=== PATIENT | male | born 1940 | race Caucasian/White ===

== ENCOUNTER 2019-04-08 10:43 | Inpatient (IN) | payer OTHER ==
[2019-04-08] MEDS ORDERED: ONDANSETRON 4 MG/2 ML VIAL ONE (11:51)
[2019-04-08] MEDS ORDERED: NA CHLORIDE 0.9% 500 ML ONE (11:51)
[2019-04-08] MEDS ORDERED: MORPHINE 4 MG/ML SYR ONE ×2 (11:51→17:02)
[2019-04-08 11:59] LABS: Absolute Lymphocytes (CBC) 0.6 K/uL (0.7-4.9); Basophils % 0.2 % (0-1.3); Hematocrit 40.7 % (39.6-49.0); Lymphocytes % 3.6 % (15.3-44.8); MPV 8.5 fL (7.6-11.3); RBC Red Blood Cell Count 4.29 M/uL (4.33-5.43)
[2019-04-08 12:18] LABS: Protime INR 1.43
[2019-04-08 12:21] LABS: Albumin 3.6 g/dL (3.4-5.0); Bilirubin Direct 0.3 mg/dL (0-0.2); Bilirubin Total 0.7 mg/dL (0.2-1.0); Potassium 3.9 mmol/L (3.5-5.1); Troponin (Emerg Dept Use Only) 0.02 ng/mL (0.0-0.045)
--- NOTE | 2019-04-08 12:39 | RAD REPORT ---
EXAM DESCRIPTION: RAD - Chest Single View - 04/08/2019 12:32 pm CLINICAL HISTORY: ABDOMINAL DISTENTION Chest pain. COMPARISON: Chest Pa And Lat (2 Views) dated 02/21/2016; Chest Pa And Lat (2 Views) dated 11/11/2015; CHEST PA AND LAT 2 VIEW dated 07/25/2014; CHEST SINGLE VIEW dated 07/24/2014; Abdomen Angio dated 10/31 FINDINGS: Portable technique limits examination quality. The lungs are grossly clear. The heart is moderately enlarged. No displaced fractures. IMPRESSION: No acute intrathoracic process suspected.
[2019-04-08] MEDS ORDERED: METRONIDAZOLE 500mg IVPB 500 MG/100 ML BAG IV ONE (13:09)
[2019-04-08] MEDS ORDERED: CIPROFLOXACIN 400mg IV 400 MG/200 ML BAG IV ONE (13:09)
--- NOTE | 2019-04-08 13:48 | RAD REPORT ---
EXAM DESCRIPTION: CTAbdomen Pelvis W Contrast - 04/08/2019 1:39 pm CLINICAL HISTORY: Abdominal pain. ABD PAIN COMPARISON: Abdomen Pelvis W Contrast dated 11/14/2015; CT ABD PELVIS W CONTRAST dated 07/25/2011 TECHNIQUE: Biphasic CT imaging of the abdomen and pelvis was performed with 100 ml non-ionic IV cont rast. All CT scans are performed using dose optimization technique as appropriate and may include automated exposure control or mA/KV adjustment according to patient size. FINDINGS: Linear opacities are present in the lung bases compatible with subsegmental atelectasis. Nodular appearance to the liver contour is seen compatible with mild cirrhosis. The spleen, pancreas, adrenal glands kidneys are within normal limits. No hydronephrosis. No bowel obstruction, free air, free fluid or abscess. Sigmoid diverticulosis coli is present without diverticulitis. The appendix is normal. Large fat containing umbilical hernia. Several smaller fat c ontaining supraumbilical ventral hernia is also seen. No bowel involvement. No evidence of significan t lymphadenopathy. Aortic atherosclerosis. No fracture is apparent. Spinal central canal stenosis is identified at L2-3. IMPRESSION: Mild liver cirrhosis. Large fat containing umbilical hernia.
--- NOTE | 2019-04-08 14:05 | ER ---
Nurse's Notes [facility] Name: Caesar Gagnon Age: 79 yrs Sex: Male : 1940 Arrival Date: 04/08/2019 Time: 10:45 Bed 24 Private MD: José Luis eDnnison Diagnosis: Low back pain;Obesity, unspecified;Abdominal tenderness;Unspecified cirrhosis of liver;Elevated white blood cell count Presentation: 04/08 10:54 Presenting complaint: Patient states: Pain in abd/back/hips. Worse with walking. la1 Transition of care: patient was not received from another setting of care. Onset of symptoms was April 08, 2019. Risk Assessment: Do you want to hurt yourself or someone else? Patient reports no desire to harm self or others. Initial Sepsis Screen: Does the patient meet any 2 criteria? No. Patient's initial sepsis screen is negative. Does the patient have a suspected source of infection? No. Patient's initial sepsis screen is negative. Care prior to arrival: None. 10:54 Method Of Arrival: Wheelchair la1 10:54 Acuity: CHRISTIANO 3 la1 Historical: - Allergies: 10:53 No Known Allergies; la1 - PMHx: 10:53 Hypertension; la1 10:53 Atrial Fib; la1 - Immunization history:: Adult Immunizations up to date. - Social history:: Smoking status: Patient/guardian denies using tobacco. - Ebola Screening: : No symptoms or risks identified at this time. - Family history:: not pertinent. Screenin:05 Abuse screen: Denies threats or abuse. Denies injuries from another. Nutritional aj1 screening: No deficits noted. Tuberculosis screening: No symptoms or risk factors identified. Assessment: 11:05 General: Appears in no apparent distress. comfortable, Behavior is calm, cooperative, aj1 appropriate for age. Pain: Complains of pain in back, right lower quadrant, left lower quadrant, left hip and right hip Pain does not radiate. Pain currently is 6 out of 10 on a pain scale. Neuro: Level of Consciousness is awake, alert, obeys commands, Oriented to person, place, time, situation. Cardiovascular: Denies chest pain, Patient's skin is warm and dry. Respiratory: Airway is patent Respiratory effort is even, unlabored, Respiratory pattern is regular, symmetrical. GI: Abdomen is round non-distended, Bowel sounds present X 4 quads. Abd is soft X 4 quads Abdomen is tender to palpation in right lower quadrant and left lower quadrant Reports nausea, Patient currently denies diarrhea, vomiting. : No signs and/or symptoms were reported regarding the genitourinary system. EENT: No signs and/or symptoms were reported regarding the EENT system. Derm: No signs and/or symptoms reported regarding the dermatologic system. Skin is pink, warm \T\ dry. normal. Musculoskeletal: No signs and/or symptoms reported regarding the musculoskeletal system. Circulation, motion, and sensation intact. 12:05 Reassessment: Patient appears in no apparent distress at this time. No changes from aj1 previously documented assessment. Patient and/or family updated on plan of care and expected duration. Pain level reassessed. Patient is alert, oriented x 3, equal unlabored respirations, skin warm/dry/pink. 14:03 Reassessment: Patient appears in no apparent distress at this time. No changes from aj1 previously documented assessment. Patient and/or family updated on plan of care and expected duration. Pain level reassessed. Patient is alert, oriented x 3, equal unlabored respirations, skin warm/dry/pink. 15:10 Reassessment: Patient and/or family updated on plan of care and expected duration. Pain aj1 level reassessed. General: Appears in no apparent distress. comfortable, Behavior is calm, cooperative, appropriate for age. Neuro: Level of Consciousness is awake, alert, obeys commands, Oriented to person, place, time, situation. Cardiovascular: Patient's skin is warm and dry. Respiratory: Airway is patent Respiratory effort is even, unlabored, Respiratory pattern is regular, symmetrical. GI: Abdomen is round non-distended. Derm: Skin is pink, warm \T\ dry. normal. Musculoskeletal: Circulation, motion, and sensation intact. 16:10 Reassessment: Patient appears in no apparent distress at this time. No changes from aj1 previously documented assessment. Patient and/or family updated on plan of care and expected duration. Pain level reassessed. Patient is alert, oriented x 3, equal unlabored respirations, skin warm/dry/pink. 17:13 Reassessment: Patient appears in no apparent distress at this time. No changes from aj1 previously documented assessment. Patient and/or family updated on plan of care and expected duration. Pain level reassessed. Patient is alert, oriented x 3, equal unlabored respirations, skin warm/dry/pink. 18:15 Reassessment: attempt to call report. iw 18:38 Reassessment: Aidee from 4th floor called to get report, states she will accept the iw patient now. Vital Signs: 10:53 Pulse 76; Resp 16; Temp 97.2; Pulse Ox 98% on R/A; Weight 127.01 kg; Height 6 ft. 2 in. la1 (187.96 cm); 10:54 BP 136 / 69; la1 12:05 BP 140 / 77; Pulse 73; Resp 18; Pulse Ox 95% on R/A; aj1 15:10 BP 126 / 72; Pulse 84; Resp 18; Pulse Ox 94% on R/A; aj1 17:13 BP 113 / 89; Pulse 83; Resp 20; Pulse Ox 93% on R/A; aj1 10:53 Body Mass Index 35.95 (127.01 kg, 187.96 cm) la1 ED Course: 10:45 Patient arrived in ED. as 10:46 José Luis Dennison MD is Private Physician. as 10:54 Triage completed. la1 10:54 Arm band placed on right wrist. la1 10:57 Patrick Hardy MD is Attending Physician. alyx 10:58 Barbara Mejias, RN is Primary Nurse. aj1 11:05 Patient has correct armband on for positive identification. Bed in low position. Call aj1 light in reach. Side rails up X 1. substitute crossing guard on. Pulse ox on. NIBP on. 11:05 No provider procedures requiring assistance completed. aj1 11:53 Initial lab(s) drawn, by nj, sent to lab. Inserted saline lock: 22 gauge in right jb1 antecubital area, using aseptic technique. Blood collected. 12:13 EKG done, by chemical laboratory technician. reviewed by Patrick Hardy MD. sm3 12:33 XRAY Chest (1 view) In Process Unspecified. EDMS 13:41 CT Abd/Pelvis - PO and IV Contrast In Process Unspecified. EDMS 14:04 José Luis Dennison MD is Hospitalizing Provider. alyx 18:42 Patient admitted, IV remains in place. iw Administered Medications: 11:56 Drug: morphine 4 mg Route: IVP; Site: right antecubital; aj 12:30 Follow up: Response: No adverse reaction; Pain is decreased; RASS: Alert and Calm (0) aj 11:56 Drug: Zofran 4 mg Route: IVP; Site: right antecubital; aj1 12:30 Follow up: Response: No adverse reaction aj 11:56 Drug: NS 0.9% 500 ml Route: IV; Rate: bolus; Site: right antecubital; aj1 14:00 Follow up: IV Status: Completed infusion; IV Intake: 500ml aj 14:03 Drug: Flagyl 500 mg Volume: 100 ml; Route: IVPB; Rate: 200 ml/hr; Infused Over: 30 aj1 mins; Site: left antecubital; 15:36 Follow up: IV Status: Completed infusion; IV Intake: 100ml aj 15:36 Drug: Cipro 400 mg Volume: 200 ml; Route: IVPB; Infused Over: 60 mins; Site: left aj antecubital; 16:55 Follow up: IV Status: Completed infusion; IV Intake: 200ml 16:55 Drug: NS 0.9% 1000 ml Route: IV; Rate: 125 ml/hr; Site: left antecubital; aj Intake: 14:00 IV: 500ml; Total: 500ml. 15:36 IV: 100ml; Total: 600ml. 16:55 IV: 200ml; Total: 800ml. [facility] Outcome: 14:05 Decision to Hospitalize by Provider. alyx 18:42 Admitted to Med/surg accompanied by tech, family with patient, via wheelchair, room iw 416, with chart, Report called to TIMOTHY Hoskins 18:42 Condition: good 18:42 Discharge instructions given to patient, family, Instructed on the need for admit. 18:42 Patient left the ED. iw Signatures: Dispatcher [employer] EDMS Ari Palmer1 Barbara Mejias RN RN rochelle1 Patrick Hardy MD MD cha Martinez, Amelia as Williams, Irene, RN RN Richard Vickers RN RN pa1 Angelica Solomon [facility]
--- NOTE | 2019-04-08 14:06 | EDPHYS ---
Physician Documentation [facility] Name: Caesar Gagnon Age: 79 yrs Sex: Male : 1940 Arrival Date: 04/08/2019 Time: 10:45 Bed 24 Private MD: José Luis Dennison ED Physician Patrick Hardy HPI: 04/08 11:21 This 79 yrs old Male presents to ER via Wheelchair with complaints of alyx Abdominal Pain, Back Pain, Hip Pain. 11:21 The patient presents with pain that is acute. The symptoms are located in the low back. alyx Onset: The symptoms/episode began/occurred 3 day(s) ago. 11:22 The patient presents with abdominal pain in the upper abdomen, in the lower abdomen, alyx abdominal distention in the upper abdomen, in the lower abdomen. Onset: The symptoms/episode began/occurred 3 day(s) ago. The pain does not radiate. Associated signs and symptoms: The patient has no apparent associated signs or symptoms. Modifying factors: The patient symptoms are alleviated by nothing, the patient symptoms are aggravated by any movement. Severity of symptoms: At their worst the symptoms were moderate, in the emergency department the symptoms are unchanged. Historical: - Allergies: 10:53 No Known Allergies; la1 - PMHx: 10:53 Hypertension; la1 10:53 Atrial Fib; la1 - Immunization history:: Adult Immunizations up to date. - Social history:: Smoking status: Patient/guardian denies using tobacco. - Ebola Screening: : No symptoms or risks identified at this time. - Family history:: not pertinent. ROS: 11:22 Constitutional: Negative for fever, chills, and weight loss, Eyes: Negative for injury, alyx pain, redness, and discharge, ENT: Negative for injury, pain, and discharge, Neck: Negative for injury, pain, and swelling, Cardiovascular: Negative for chest pain, palpitations, and edema, Respiratory: Negative for shortness of breath, cough, wheezing, and pleuritic chest pain, : Negative for injury, bleeding, discharge, and swelling, MS/Extremity: Negative for injury and deformity, Skin: Negative for injury, rash, and discoloration, Neuro: Negative for headache, weakness, numbness, tingling, and seizure, Psych: Negative for depression, anxiety, suicide ideation, homicidal ideation, and hallucinations, Allergy/Immunology: Negative for hives, rash, and allergies, Endocrine: Negative for neck swelling, polydipsia, polyuria, polyphagia, and marked weight changes, Hematologic/Lymphatic: Negative for swollen nodes, abnormal bleeding, and unusual bruising. 11:22 Abdomen/GI: Positive for abdominal distension. 11:22 Back: Positive for decreased range of motion, pain at rest, pain with movement. 11:22 MS/extremity: Positive for swelling, of the right leg and left leg. Exam: 11:22 Constitutional: This is a well developed, well nourished patient who is awake, alert, alyx and in no acute distress. Head/Face: Normocephalic, atraumatic. Eyes: Pupils equal round and reactive to light, extra-ocular motions intact. Lids and lashes normal. Conjunctiva and sclera are non-icteric and not injected. Cornea within normal limits. Periorbital areas with no swelling, redness, or edema. ENT: Nares patent. No nasal discharge, no septal abnormalities noted. Tympanic membranes are normal and external auditory canals are clear. Oropharynx with no redness, swelling, or masses, exudates, or evidence of obstruction, uvula midline. Mucous membranes moist. Neck: Trachea midline, no thyromegaly or masses palpated, and no cervical lymphadenopathy. Supple, full range of motion without nuchal rigidity, or vertebral point tenderness. No Meningismus. Chest/axilla: Normal chest wall appearance and motion. Nontender with no deformity. No lesions are appreciated. Cardiovascular: Regular rate and rhythm with a normal S1 and S2. No gallops, murmurs, or rubs. Normal PMI, no JVD. No pulse deficits. Respiratory: Lungs have equal breath sounds bilaterally, clear to auscultation and percussion. No rales, rhonchi or wheezes noted. No increased work of breathing, no retractions or nasal flaring. Back: No spinal tenderness. No costovertebral tenderness. Full range of motion. Male : Normal genitalia with no discharge or lesions. Skin: Warm, dry with normal turgor. Normal color with no rashes, no lesions, and no evidence of cellulitis. Neuro: Awake and alert, GCS 15, oriented to person, place, time, and situation. Cranial nerves II-XII grossly intact. Motor strength 5/5 in all extremities. Sensory grossly intact. Cerebellar exam normal. Normal gait. Psych: Awake, alert, with orientation to person, place and time. Behavior, mood, and affect are within normal limits. 11:22 Abdomen/GI: Inspection: distension, Bowel sounds: active, Palpation: mild abdominal tenderness, Liver: no appreciated palpable abnormalities, Hernia: not appreciated. Vital Signs: 10:53 Pulse 76; Resp 16; Temp 97.2; Pulse Ox 98% on R/A; Weight 127.01 kg; Height 6 ft. 2 in. la1 (187.96 cm); 10:54 BP 136 / 69; la1 12:05 BP 140 / 77; Pulse 73; Resp 18; Pulse Ox 95% on R/A; aj1 15:10 BP 126 / 72; Pulse 84; Resp 18; Pulse Ox 94% on R/A; aj1 17:13 BP 113 / 89; Pulse 83; Resp 20; Pulse Ox 93% on R/A; aj1 10:53 Body Mass Index 35.95 (127.01 kg, 187.96 cm) la1 MDM: 10:57 Patient medically screened. [facility] 11:24 Data reviewed: vital signs, nurses notes, EMS record, lab test result(s), EKG, [facility] radiologic studies, CT scan, plain films. 04/08 11:21 Order name: Basic Metabolic Panel; Complete Time: 12:33 [facility] 04/08 11:21 Order name: CBC with Diff [facility] 04/08 11:21 Order name: LFT's; Complete Time: 12:33 [facility] 04/08 11:21 Order name: Magnesium; Complete Time: 12:33 [facility] 04/08 11:21 Order name: NT PRO-BNP; Complete Time: 12:33 [facility] 04/08 11:21 Order name: PT-INR; Complete Time: 12:33 [facility] 04/08 11:21 Order name: Troponin (emerg Dept Use Only); Complete Time: 12:33 [facility] 04/08 11:21 Order name: XRAY Chest (1 view); Complete Time: 12:54 [facility] 04/08 11:21 Order name: Lipase; Complete Time: 12:33 [facility] 04/08 11:21 Order name: Urine Culture [facility] 04/08 12:09 Order name: CBC Smear Scan [facility] 04/08 14:18 Order name: Manual Differential [facility] 04/08 14:21 Order name: Urine Dipstick--Ancillary (enter results) 04/08 16:03 Order name: Urine Dipstick-Ancillary [facility] 04/08 11:21 Order name: EKG; Complete Time: 11:22 [facility] 04/08 11:21 Order name: Cardiac monitoring; Complete Time: 11:53 [facility] 04/08 11:21 Order name: IV Saline Lock; Complete Time: 11:53 [facility] 04/08 11:21 Order name: Labs collected and sent; Complete Time: 11:53 [facility] 04/08 11:21 Order name: O2 Per Protocol; Complete Time: 11:53 [facility] 04/08 11:21 Order name: O2 Sat Monitoring; Complete Time: 11:53 [facility] 04/08 11:21 Order name: CT Abd/Pelvis - PO and IV Contrast; Complete Time: 13:57 [facility] 04/08 15:44 Order name: Diet Regular; Complete Time: 15:44 [facility] Administered Medications: 11:56 Drug: morphine 4 mg Route: IVP; Site: right antecubital; [facility] 12:30 Follow up: Response: No adverse reaction; Pain is decreased; RASS: Alert and Calm (0) [facility] 11:56 Drug: Zofran 4 mg Route: IVP; Site: right antecubital; aj1 12:30 Follow up: Response: No adverse reaction [facility] 11:56 Drug: NS 0.9% 500 ml Route: IV; Rate: bolus; Site: right antecubital; aj1 14:00 Follow up: IV Status: Completed infusion; IV Intake: 500ml [facility] 14:03 Drug: Flagyl 500 mg Volume: 100 ml; Route: IVPB; Rate: 200 ml/hr; Infused Over: 30 aj1 mins; Site: left antecubital; 15:36 Follow up: IV Status: Completed infusion; IV Intake: 100ml aj 15:36 Drug: Cipro 400 mg Volume: 200 ml; Route: IVPB; Infused Over: 60 mins; Site: left aj1 antecubital; 16:55 Follow up: IV Status: Completed infusion; IV Intake: 200ml [facility] 16:55 Drug: NS 0.9% 1000 ml Route: IV; Rate: 125 ml/hr; Site: left antecubital; aj1 Disposition: 04/08/19 14:05 Hospitalization ordered by José Luis Dennison for Inpatient Admission. Preliminary diagnosis are Low back pain, Obesity, unspecified, Abdominal tenderness, Unspecified cirrhosis of liver, Elevated white blood cell count. - Bed requested for Telemetry/MedSurg (Inpatient). - Status is Inpatient Admission. iw - Condition is Fair. - Problem is new. - Symptoms have improved. UTI on Admission? No Signatures: Dispatcher [employer] EDMS Barbara Mejias, RN RN aj1 Latosha Hwang RN RN Patrick Pulido MD MD cha Williams, Irene, RN RN iw Richard Vickers RN RN la1 Corrections: (The following items were deleted from the chart) 18:10 14:05 Hospitalization Ordered by José Luis Dennison MD for Inpatient Admission. Preliminary dw diagnosis is Low back pain; Obesity, unspecified; Abdominal tenderness; Unspecified cirrhosis of liver; Elevated white blood cell count. Bed requested for Telemetry/MedSurg (Inpatient). Status is Inpatient Admission. Condition is Fair. Problem is new. Symptoms have improved. UTI on Admission? No. alyx 18:42 18:10 04/08/2019 14:05 Hospitalization Ordered by José Luis Dennison MD for Inpatient iw Admission. Preliminary diagnosis is Low back pain; Obesity, unspecified; Abdominal tenderness; Unspecified cirrhosis of liver; Elevated white blood cell count. Bed requested for Telemetry/MedSurg (Inpatient). Status is Inpatient Admission. Condition is Fair. Problem is new. Symptoms have improved. UTI on Admission? No. dw
[2019-04-08 14:17] LABS: Blood Morphology Comment NOT SEEN (NOT SEEN); Platelet Estimate ADEQ
[2019-04-08 16:02] LABS: Urine Blood NEGATIVE (NEG); Urine Glucose NEGATIVE (NEG); Urine Protein NEGATIVE (NEG); Urine Specific Gravity <1.005 (1.005-1.030); Urine pH 5.5 (5.0-7.0)
--- NOTE | 2019-04-08 16:31 | EKG ---
Test Date: 2019-04-08 Test Time: 11:59:55 [place]: LAN MEASUREMENT RESULTS: Intervals: Rate: 64 OR: QRSD: 90 QT: 408 QTc: 420 [place]: P: OR: QRS: 35 T: 65 INTERPRETIVE STATEMENTS: Atrial fibrillation with premature ventricular or aberrantly conducted complexes Abnormal ECG Compared to ECG 11/11/2015 15:56:32 Ventricular premature complex(es) now present ST (T wave) deviation no longer present Electronically Signed On 04-08-19 16:30:09 EVENT PLANNING INTERN by Adolfo Vasquez
[2019-04-08] MEDS ORDERED: NA CHLORIDE 0.9% 1,000 ML ONE (16:50)
[2019-04-08] MEDS ORDERED: NA CHLORIDE 0.9% 1,000 ML IV SCH ×2 (19:37→21:00)
[2019-04-08] MEDS ORDERED: CIPROFLOXACIN 400mg IV 400 MG/200 ML BAG IV SCH (21:00)
[2019-04-08] MEDS ORDERED: FAMOTIDINE 20 MG/2 ML VIAL IV SCH (21:00)
[2019-04-08] MEDS: MORPHINE 4 MG/ML SYR IV PRN (21:29)
[2019-04-08] MEDS: ONDANSETRON 4 MG/2 ML VIAL IV PRN (21:29)
[2019-04-08] MEDS: METRONIDAZOLE 500mg IVPB 500 MG/100 ML BAG IV SCH (21:30)
[2019-04-09] MEDS: METRONIDAZOLE 500mg IVPB 500 MG/100 ML BAG IV SCH ×4 (00:28→17:32)
[2019-04-09] MEDS: CIPROFLOXACIN 400mg IV 400 MG/200 ML BAG IV SCH ×2 (02:58→14:40)
[2019-04-09 03:57] VITALS: BMI 35.9
[2019-04-09 04:33] LABS: Basophils % 0.9 % (0-1.3); Hematocrit 40.2 % (39.6-49.0); Lymphocytes % 6.7 % (15.3-44.8); MPV 8.6 fL (7.6-11.3); RBC Red Blood Cell Count 4.16 M/uL (4.33-5.43)
[2019-04-09 05:23] LABS: Albumin 3.3 g/dL (3.4-5.0); Bilirubin Direct 0.3 mg/dL (0-0.2); Bilirubin Total 0.6 mg/dL (0.2-1.0); Potassium 4.5 mmol/L (3.5-5.1); Protein, Total 6.5 g/dL (6.4-8.2)
[2019-04-09] MEDS: MORPHINE 4 MG/ML SYR IV PRN ×5 (05:27→21:34)
[2019-04-09] MEDS: ONDANSETRON 4 MG/2 ML VIAL IV PRN (05:27)
[2019-04-09] MEDS: NITROGLYCERIN 0.4 MG/TAB SL PRN ×2 (06:30→06:35)
[2019-04-09 06:48] LABS: Troponin I 0.03 ng/mL (0.0-0.045)
[2019-04-09] MEDS ORDERED: INFLUENZA VACCINE (for 3y+) 0.5 ML DOSE IMVAC ONE (09:00)
--- NOTE | 2019-04-09 13:26 | ECHO ---
HEIGHT: 6 ft 2 in WEIGHT: 280 lb 0 oz DATE OF STUDY: 04/09/[address]: Adolfo Vasquez MD 2-DIMENSIONAL: YES M.MODE: YES DOPPLER: YES COLOR FLOW: YES TDS: YES PORTABLE: NO DEFINITY: NO BUBBLE STUDY: NO DIAGNOSIS: ATRIAL FIBRILLATION CARDIAC HISTORY: CATHERIZATION: YES SURGERY: NO PROSTHETIC VALVE: NO PACEMAKER: NO MEASUREMENTS (cm) DIASTOLIC (NORMALS) SYSTOLIC (NORMALS) IVSd 1.4 (0.6-1.2) LA Diam (1.9-4.0) LVEF 53% LVIDd 4.4 (3.5-5.7) LVIDs 3.2 (2.0-3.5) %FS 27% LVPWd 1.4 (0.6-1.2) Ao Diam 3.0 (2.0-3.7) 2 DIMENSIONAL ASSESSMENT: RIGHT ATRIUM: NORMAL LEFT ATRIUM: NORMAL RIGHT VENTRICLE: NORMAL LEFT VENTRICLE: LEFT VENTRICULAR HYPERTROPHY TRICUSPID VALVE: NORMAL MITRAL VALVE: NORMAL PULMONIC VALVE: NORMAL AORTIC VALVE: NORMAL PERICARDIAL EFFUSION: NONE AORTIC ROOT: NORMAL LEFT VENTRICULAR WALL MOTION: NORMAL. DOPPLER/COLOR FLOW: NORMAL. COMMENTS: MILD LEFT VENTRICULAR HYPERTROPHY. NORMAL EJECTION FRACTION. NO WALL MOTION ABNORMALITY. NO EFFUSION. TECHNOLOGIST: IAM RODRIGUEZ
[2019-04-09] MEDS ORDERED: MUPIROCIN TP PRN (15:43)
[2019-04-09] MEDS ORDERED: ALBUTEROL SULFATE 2.5 MG IH PRN (15:43)
[2019-04-09] MEDS ORDERED: PREDNISONE 10 MG PO PRN (15:43)
[2019-04-09] MEDS ORDERED: HOME MED 1 EA UNK (Zolpidem Tartrate [Ambien*] 10 MG) PO PRN (15:43)
--- NOTE | 2019-04-09 16:31 | CON ---
Date of Consultation: 04/09/2019 I saw the patient on 04/09/2019. Reason For Consultation: Atypical chest pain. History Of Present Illness: Mr. Gagnon is a 79-year-old white male. He has had a history of coronar y artery disease, status post 1 stent in the past. He has a history of chronic atrial fibrillation, hypertension, gout, COPD, gastroesophageal reflux disease, and dyslipidemia. He came in with mid-epi gastric pain that is diffuse type. CT scan of the abdomen shows some mild cirrhosis. It was thought that he had a short run of ventricular tachycardia, but it is truly an atrial fibrillation with aber rancy. The patient did not have any palpitation, nausea, vomiting, diaphoresis, PND, orthopnea, peda l edema, or syncope. Allergies: NONE. Review of Systems: Negative. Social History: Negative. Family History: Negative. Medications: Includes Eliquis, Lasix, lisinopril, metoprolol, allopurinol, potassium, inhalers, aspi rin, Lipitor, Pepcid, hydrochlorothiazide, and prednisone. Physical Examination: General: When I saw him, he was asymptomatic, pleasant. No acute distress. Vital Signs: Atrial fibrillation, rate of 80. HEENT: Negative. Neck: Supple without any bruit, lymphadenopathy, JVD, or thyromegaly. Chest: Clear to auscultation and percussion. Cardiac: Revealed atrial fibrillation. Abdomen: Benign. Extremities: Revealed no clubbing, cyanosis. He had trace edema. Neurologic: He was intact. Skin: Dry. Impression And Plan: 1.Atypical chest pain secondary to the combination of cirrhosis, maybe gastritis. 2.History of coronary artery disease, status post stent. Had a recent negative stress test. Echoca rdiogram is pending. 3.Cirrhosis. 4.Atrial fibrillation, on Eliquis and metoprolol with an episode of atrial fibrillation with aberran cy, not ventricular tachycardia. Magnesium is normal. Potassium is slightly low that needs to be supplemented. His other problems in clude hypertension, gout, chronic obstructive pulmonary disease, gastroesophageal reflux disease, and dyslipidemia, although seem to be stable at this point. I would continue his present regimen. Echo is pending. No further cardiac workup at this point. One thing I would like to note that he is on a combination of Lasix and hydrochlorothiazide and I think if the echocardiogram is normal, I will st ick with hydrochlorothiazide rather than the Lasix, but not the combination of both. I will discuss the case further with Dr. Dennison. MAVERICK/RIA Voice ID: [id number] Report ID: [id number]
[2019-04-09] MEDS ORDERED: BISACODYL E.C. 5 MG TAB PO ONE (17:00)
[2019-04-09] MEDS ORDERED: HOME MED 1 EA UNK (Albuterol Inhaler [Ventolin Inhaler*] 2 PUFF) IH SCH (17:00)
[2019-04-09] MEDS ORDERED: METOPROLOL TARTRATE 12.5 MG PO SCH (18:00)
[2019-04-09] MEDS ORDERED: HOME MED 1 EA UNK (Atorvastatin Calcium [Lipitor] 40 MG) PO SCH (21:00)
[2019-04-09] MEDS ORDERED: LISINOPRIL 20 MG PO SCH (21:00)
[2019-04-09] MEDS ORDERED: APIXABAN PO SCH (21:00)
--- NOTE | 2019-04-09 21:22 | PN ---
Date of Progress Note: 04/09/2019 The patient stated he feels a lot better starting early this afternoon. Was treated nonspecifically with IV antibiotics. Of interest is that he did have some good response to the nitroglycerin last ni ght when he complained of chest tightness and wheezing. Whether this was mainly pulmonary and/or car diac or combination obviously is possible. In any event, I will keep him on IV antibiotics at least overnight, possibly be discharged tomorrow on oral medications. Suspect the primary insult came from his lungs as he states he did start smoking again. When he woke up, however, he felt just very achy all over and he eventually presented to the emergency room. HR/MODL Voice ID: [id number] Report ID: [id number]
--- NOTE | 2019-04-09 21:28 | HP ---
Date of Admission: 04/08/2019 Chief Complaint: General malaise. History Of Present Illness: The patient states that he woke up a couple of days prior to presenting to the emergency room and felt achy all over his joints and muscles and has felt very weak. He did n ot have any chills or fever or anything contributing to it. He was presented to the emergency room w ith elevated white count, decided to treat him with more extensive antibiotics to his underlying cond itions, which are multiple. Past Medical History: Patient has a long history of coronary artery disease, pulmonary disease, awilda pheral vascular disease. Social History: The patient has started smoking again, has a history of this as well as some alcohol intake. Family History: Noncontributory. Physical Examination: General: Patient is an elderly male, overweight. Vital Signs: Stable. Head and Neck: Normocephalic. Pupils equal, reactive to light and accommodation. Fundi negative. T rachea midline. Thyroid not palpable. ENT: Negative. Chest: Occasional rales at both bases. Adequate air entry and movement. Cardiovascular: PMI, midclavicular line. Heart sounds normal. Peripheral pulses are present and eq ual bilaterally. Abdomen: No organomegaly. Bowel sounds present. Extremities: Good tone and movement bilaterally. Reflexes physiologic. Rectal: Deferred. Impression: Leukocytosis, probably secondary to bronchial infection; coronary artery disease by hist ory; hypertension, controlled. Plan: Patient will be admitted, placed on IV antibiotics. Continue with his inhalation therapy and his home medications for his numerous cardiovascular problems. However, Cardiology has seen him. He is also seen by Pulmonology, last seen within the past month. According to the patient, no changes were made in his inhalation therapy. Depending on the results of telemetry and his cardiac workup, selina farr may need to stay another 48 hours or so to stabilize his status. In regard to his white count bein g elevated, the patient does take steroids. He takes it on a regular basis, so that is a possibility as well. He has not had his flu shot today, so it is possible this is a factor as well. We will co ntinue with the workup as above. HR/MODL Voice ID: [id number]
[2019-04-10] MEDS: METRONIDAZOLE 500mg IVPB 500 MG/100 ML BAG IV SCH ×3 (00:07→11:53)
[2019-04-10] MEDS: CIPROFLOXACIN 400mg IV 400 MG/200 ML BAG IV SCH (03:41)
[2019-04-10] MEDS: MORPHINE 4 MG/ML SYR IV PRN ×2 (03:44→17:43)
[2019-04-10 04:24] LABS: Potassium 3.8 mmol/L (3.5-5.1)
[2019-04-10] MEDS: LEVALBUTEROL 1.25 MG/3 ML NEB NEB SCH ×3 (08:42→20:00)
[2019-04-10] MEDS: IPRATROPIUM BROM 0.5MG/2.5ML NEB PRN ×2 (08:42→14:30)
[2019-04-10] MEDS ORDERED: LEVALBUTEROL 1.25 MG/3 ML NEB ONE (08:51)
[2019-04-10] MEDS ORDERED: HOME MED 1 EA UNK (L.Acidoph,Paracasei, B.Lactis [Probiotic] 1 EACH) PO SCH (09:00)
[2019-04-10] MEDS ORDERED: HOME MED 1 EA UNK (Tiotropium Bromide [Spiriva] 1 SPRAY) IH SCH (09:00)
[2019-04-10] MEDS ORDERED: HOME MED 1 EA UNK (Furosemide [Lasix] 80 MG) PO SCH (09:00)
[2019-04-10] MEDS ORDERED: POTASSIUM CHLORIDE PO SCH (09:00)
[2019-04-10] MEDS ORDERED: HOME MED 1 EA UNK (Allopurinol [Allopurinol] 300 MG) PO SCH (09:00)
[2019-04-10] MEDS ORDERED: ASPIRIN PO SCH (09:00)
[2019-04-10] MEDS ORDERED: HOME MED 1 EA UNK (Fluticasone/Vilanterol [Breo Ellipta 200-25 Mcg Inh] 1 PUFF) IH SCH (09:00)
[2019-04-10] MEDS ORDERED: HOME MED 1 EA UNK (Hydrochlorothiazide [Hydrochlorothiazide] 1 TAB) PO SCH (09:00)
[2019-04-10] MEDS ORDERED: FAMOTIDINE PO SCH (09:00)
--- NOTE | 2019-04-10 09:01 | RAD REPORT ---
EXAM DESCRIPTION: Che Single View04/10/2019 8:53 am CLINICAL HISTORY: Shortness of breath COMPARISON: April 08 FINDINGS: A few areas of subsegmental atelectasis are present within the lung bases The upper lobes are clear Heart is mildly to moderately enlarged
[2019-04-10 09:25] LABS: Arterial Blood Carboxyhemoglob 1.5 % (0-1.5); Blood Gas Oxyhemoglobin 88.4 % (94-97); Blood O2 Saturation 90.1 % (92-98.5)
[2019-04-10] MEDS ORDERED: BISACODYL E.C. 5 MG TAB PO ONE (11:35)
[2019-04-10 11:45] LABS: Absolute Lymphocytes (CBC) 0.4 K/uL (0.7-4.9); Basophils % 0.1 % (0-1.3); Lymphocytes % 2.5 % (15.3-44.8); MPV 8.6 fL (7.6-11.3); RBC Red Blood Cell Count 3.94 M/uL (4.33-5.43)
[2019-04-10] MEDS ORDERED: MAGNESIUM CITRATE 300 ML BOT PO SCH (12:00)
--- NOTE | 2019-04-10 13:49 | PN ---
Date of Progress Note: 04/10/2019 Subjective: Hospitalist service covering for Dr. Dennison over the holiday weekend. Code status full. Patient had acute dyspnea with minimal exertion, getting from the bed to the commode, became very lethargic and was feeling faint and was complaining of shortness of breath. Patient did improve with rest. Medications: List reviewed. Physical Examination: Vital Signs: Temperature 97.5, heart rate 73, blood pressure 120/54, respirations 18, O2 93% on 2 L via nasal cannula. General: Awake, alert, oriented x3, elderly male, obese, ill-appearing. CV: S1, S2, irregularly irregular. Peripheral pulses weak. Respiratory: Diminished breath sounds at the bases. No wheezing or stridor. Gastrointestinal: Abdomen is soft, nontender, nondistended. Positive bowel sounds. Extremities: The patient has some cyanosis of the toes. Peripheral edema is present. Neurologic: Nonfocal. Laboratory Data: Sodium 138, potassium 3.8, chloride 102, CO2 32, BUN 19, creatinine 1.07, glucose 109, calcium 8.7. Chest x-ray personally reviewed, shows few areas of subsegmental atelectasis present within the lung bases. Upper lobes are clear. Heart is mild to moderately enlarged. Assessment And Plan: A 79-year-old male with. 1. Atypical chest pain, resolved. 2. Atrial fibrillation, chronic, permanent, on Eliquis and metoprolol. Patient did have some episodes of atrial fibrillation with aberrancy and not ventricular tachycardia per Cardiology. No further workup recommended. 3. History of coronary artery disease, status post stent. Recent negative stress test. Echocardiogram shows EF of 53%. No wall motion abnormalities. 4. Liver cirrhosis. 5. Cyanosis of the lower extremities. 6. Obesity, BMI 35.9. 7. Peripheral vascular disease. 8. Chronic obstructive pulmonary disease. Patient is on chronic steroids. We will continue with breathing treatments. We will add Xopenex to avoid further worsening of his atrial fibrillation. 9. Essential hypertension, stable. 10. Gout, stable. 11. Mixed hyperlipidemia, stable. 12. Gastroesophageal reflux disease without esophagitis. The patient's atypical chest pain may be related to his gastroesophageal reflux disease. Patient will need outpatient GI followup. 13. Abdominal pain. Ct scan reviewed. No acute changes. Improved. Plan: We will continue to wean off O2. Patient usually only uses oxygen at night. We will repeat CBC, obtain lactate and re-evaluate for possible discharge later today or in a.m. depending on clinical improvement. ADDENDUM: Patient is hypotensive. Will reassess for DC in am. SA/MODL Voice ID: [id number] Report ID: [id number] MTDD
[2019-04-11] MEDS: LEVALBUTEROL 1.25 MG/3 ML NEB NEB SCH ×4 (02:00→19:50)
[2019-04-11] MEDS: ACETAMINOPHEN 500 MG TAB PO PRN ×2 (05:48→16:38)
[2019-04-11 06:27] LABS: Absolute Lymphocytes (CBC) 0.7 K/uL (0.7-4.9); Basophils % 0.3 % (0-1.3); Hematocrit 36.9 % (39.6-49.0); Lymphocytes % 4.4 % (15.3-44.8); MPV 8.4 fL (7.6-11.3); RBC Red Blood Cell Count 3.84 M/uL (4.33-5.43)
[2019-04-11 06:38] LABS: Albumin 2.9 g/dL (3.4-5.0); Bilirubin Total 0.8 mg/dL (0.2-1.0); Potassium 3.5 mmol/L (3.5-5.1); Protein, Total 5.8 g/dL (6.4-8.2)
[2019-04-11] MEDS ORDERED: MAGNESIUM CITRATE 300 ML BOT PO ONE (07:00)
[2019-04-11] MEDS: IPRATROPIUM BROM 0.5MG/2.5ML NEB PRN (07:55)
[2019-04-11 10:40] LABS: Anisocytosis 1+; Blood Morphology Comment NOTED (NOT SEEN); Platelet Estimate ADEQ; Urine White Blood Cell Casts OK
--- NOTE | 2019-04-11 10:41 | P.CNS ---
Date of Consult: 04/11/19 Reason for Consult: COPD Chief Complaint: Left hip discomfort History of Present Illness: Patient is 79 years of age well known to me he has a history of COPD active smoker sleep apnea compliant with his BiPAP patient became worse to be 3 days prior to admission apparently", was became paralyzed" he has been complaining of discomfort in his left hip some abdominal discomfort he does have a chronic cough is baseline short of breath ED sats very easily is more short of breath- patient has difficulty ambulating Allergies No Known Drug Allergies Allergy (Verified 11/24/15 11:48) Unknown Home Medications: Atorvastatin Calcium [Lipitor] 40 mg PO BEDTIME 07/26/11 Furosemide [Lasix] 80 mg PO DAILY 07/26/11 Tiotropium [place] [Spiriva] 1 spray IH DAILY 07/26/11 Albuterol Sulfate [Albuterol Sulfate 0.083% Neb Soln] 2.5 mg IH Q6HP PRN #60 ml 07/26/14 Apixaban [Eliquis] 1 tab PO BID 10/01/15 L.acidoph,Paracasei, B.lactis [Probiotic] 1 each PO DAILY 10/01/15 Mupirocin Oint [Bactroban 2% Ointment*] 22 gm TP BID PRN 10/01/15 Lisinopril [Prinivil*] 20 mg PO BID 11/24/15 Aspirin [King Aspirin EC] 1 tab PO DAILY 11/06/16 Famotidine [Pepcid*] 1 tab PO DAILY 11/06/16 Potassium Chloride [Micro-K] 2 cap PO DAILY 11/06/16 hydroCHLOROthiazide [Hydrochlorothiazide] 1 tab PO DAILY 11/06/16 Albuterol Inhaler [Ventolin Inhaler*] 2 puff IH QID 04/09/19 Allopurinol 300 mg PO DAILY 04/09/19 Fluticasone/Vilanterol [Breo Ellipta 200-25 Mcg INH] 1 puff IH DAILY 04/09/19 Metoprolol Tartrate [Lopressor*] 12.5 mg PO BID 6AM 6PM 04/09/19 Zolpidem Tartrate [Ambien*] 10 mg PO BEDTIME PRN 04/09/19 predniSONE [Deltasone*] 10 mg PO DAILY PRN 04/09/19 - Past Medical/Surgical History Diabetic: No -: COPD -: HTN -: SLEEP APNEA -: AFIB -: CAD -: OK -: CELLULITIS -: CVA -: CARTILIDGE REPAIR -: BOWEL SURGERY -: CARDIAC STENTS -: TONSILLECTOMY - Social History Smoking Status: Current every day smoker Alcohol use: Yes CD- Drugs: No Caffeine use: Yes Place of Residence: Home Review of Systems General: Weakness Respiratory: Cough, Shortness of Breath Musculoskeletal: Other (Left-sided pain) Physical Examination Temp Pulse Resp BP Pulse Ox 97.7 F 91 H 20 126/58 L 99 04/11/19 08:00 04/11/19 08:00 04/11/19 08:00 04/11/19 08:00 04/11/19 08:00 General: Alert, In no apparent distress, Oriented x3 HEENT: Normocephalic, Other Respiratory: Expiratory wheezes Cardiovascular: Edema, Irregular heart rate/rhythm Gastrointestinal: Normal bowel sounds, Soft and benign Musculoskeletal: Other (Patient has difficulty moving his left leg the problem with the left knee right leg is no problem) - Problems (1) COPD exacerbation Onset Date: 11/16/15 Current Visit: No Status: Chronic Plan: Patient is 79 years of age has a history of severe COPD still continues to smoke uses prednisone on a p.r.n. basis takes Breo at home the complaining of some discomfort in his left hip will need some x-rays is mildly hypoxic hypercapnic white count is elevated urine cultures done chest x-ray no change she has significant amount of pericardial fat I recommend an x-ray of his left hip joint blood gases are at his baseline patient has cirrhosis of the liver no prior history vital signs are stable he has AFib
[2019-04-11] MEDS: predniSONE 20 MG TAB PO SCH ×2 (12:06→20:16)
--- NOTE | 2019-04-11 13:18 | RAD REPORT ---
EXAM DESCRIPTION: RAD - Hip Left 2 View - 04/11/2019 12:46 pm CLINICAL HISTORY: Left hip pain COMPARISON: None. FINDINGS: AP and frogleg views of the left hip were obtained. There is no fracture or dislocation. J oint space narrowing is present. Sclerotic changes and spurring changes are noted along the superior acetabular rim. Femoral head maintains smooth rounded contour. AVN is not suspected. Detail is limite d due to portable imaging technique and large body habitus. No acute soft tissue finding suspected. Dense arterial tree calcifications are present. IMPRESSION: Exam is limited somewhat by portable technique and body habitus. Patient has prominent hip joint degenerative change with no acute or destructive finding.
[2019-04-11] MEDS: IPRATROPIUM BROM 0.5MG/2.5ML NEB SCH ×2 (13:35→19:50)
--- NOTE | 2019-04-11 19:33 | PN ---
Date of Progress Note: 04/11/2019 Subjective: Patient is seen and examined. Chart reviewed and case discussed with RN and Dr. Borges. Patient is doing better, not complaining of pain in his joints, specifically also his knee and his hip. Medications: List reviewed. Physical Examination: Vital Signs: Temperature 97.7, heart rate 91, blood pressure 126/58, respirations 20, O2 99% on 2 L via nasal cannula. General: Awake, alert, oriented x3. Elderly male, obese, in some mild distress due to pain. CV: S1, S2, irregularly irregular. Peripheral pulses present. Respiratory: Diminished breath sounds. No wheezing or stridor. Gastrointestinal: Abdomen is soft, nontender, nondistended. Positive bowel sounds. Extremities: No clubbing. Patient has 2+ edema and cyanosis of his feet. Neurologic: Nonfocal. Laboratory Data: Sodium 139, potassium 3.5, chloride 102, CO2 of 33, BUN 17, creatinine 0.91, glucose 119, calcium 8.8, albumin 2.9. WBC 15.9, H and H 12 and 36.9, platelets 252, neutrophils 85%. Blood cultures and sputum cultures pending. Hip x-ray, exam is limited by portable technique and body habitus. Patient has prominent hip joint degenerative change with no acute or destructive finding. Assessment: A 79-year-old male with: 1. Atypical chest pain, resolved. 2. Right hip pain. X-ray does not show any acute changes, likely musculoskeletal and chronic joint disease. We will give pain medications. 3. Atrial fibrillation, chronic, permanent. Continue Eliquis and metoprolol. Appreciate Cardiology input. 4. Generalized abdominal pain. CT scan is negative, improved. 5. Liver cirrhosis. Patient does have third spacing. 6. Cyanosis of lower extremities. 7. Obesity, BMI 35.9. 8. Peripheral vascular disease. 9. Chronic obstructive pulmonary disease. Continue breathing treatments. Appreciate Pulmonology input. 10. Essential hypertension, stable. 11. Gout, stable. 12. Mixed hyperlipidemia, stable. 13. Gastroesophageal reflux disease without esophagitis, stable. 14. History of coronary artery disease, ute artery, ute heart, status post stent. Ejection fraction of 53%, stable. 15. Constipation. Patient was given magnesium citrate x2. Had small bowel movement. Plan: Patient is unable to ambulate properly, likely combination of disuse myopathy and pain. We will have PT evaluate the patient and likely plan on discharging to fdc facility. /RIA Voice ID: [id number] Report ID: [id number] MTDD
[2019-04-11] MEDS ORDERED: lisinopriL 20 MG TAB PO SCH (21:00)
[2019-04-12] MEDS: LEVALBUTEROL 1.25 MG/3 ML NEB NEB SCH ×3 (01:15→13:32)
[2019-04-12] MEDS: IPRATROPIUM BROM 0.5MG/2.5ML NEB SCH ×3 (01:15→14:00)
[2019-04-12] MEDS: predniSONE 20 MG TAB PO SCH (07:31)
[2019-04-12 08:05] LABS: Absolute Lymphocytes (CBC) 0.5 K/uL (0.7-4.9); Basophils % 0.1 % (0-1.3); Hematocrit 38.3 % (39.6-49.0); Lymphocytes % 2.4 % (15.3-44.8); MPV 8.5 fL (7.6-11.3); RBC Red Blood Cell Count 4.01 M/uL (4.33-5.43)
[2019-04-12 08:12] LABS: Albumin 3.1 g/dL (3.4-5.0); Bilirubin Total 0.5 mg/dL (0.2-1.0); Potassium 4.3 mmol/L (3.5-5.1); Protein, Total 6.7 g/dL (6.4-8.2)
[2019-04-12 09:26] LABS: Blood Morphology Comment NOTED (NOT SEEN); Burr Cells 2+; Platelet Estimate ADEQ
[2019-04-12 15:48] VITALS: O2SAT 94
[2019-04-12 16:22] VITALS: BP 146/69; TEMP 98
--- NOTE | 2019-04-12 21:52 | DS ---
Date of Discharge: 04/12/2019 Consultants: 1.Dr. Borges with Pulmonology. 2.Dr. Vasquez with Cardiology. Admitting Diagnoses: 1.Acute respiratory infection, bronchitis. 2.Coronary artery disease. 3.Essential hypertension. 4.Leukocytosis. Discharge Diagnoses: 1.Atypical chest pain, resolved. 2.Right hip pain, no acute fractures, improved. 3.Atrial fibrillation, chronic, permanent, on Eliquis and metoprolol. 4.History of coronary artery disease, [place] artery and [place] heart, status post stent without yuri na. 5.Liver cirrhosis. 6.Cyanosis of lower extremities. 7.Obesity, BMI 35.9. 8.Peripheral vascular disease. 9.Chronic obstructive pulmonary disease, acute bronchitis. 10.Essential hypertension, stable. 11.Gout, stable. 12.Mixed hyperlipidemia, stable. 13.Gastroesophageal reflux disease without esophagitis, stable. 14.Abdominal pain distention, improved. 15.Constipation. History Of Present Illness: The patient is one of Dr. Dennison's patients, who was admitted by him on 04/08/2019, for generalized malaise, weakness, elevated white count, some abdominal pain. It should be noted that the patient is on steroids, came in with bronchitis type symptoms. CT scan of the abd omen was done showed mild liver cirrhosis, large fat containing umbilical hernia. Patient also has s ome spinal central canal stenosis at L2-L3 and his lung bases were compatible with subsegmental atele ctasis. Patient was seen by Cardiology and Pulmonology. Echocardiogram was also done, EF of 53%. H e, otherwise, did well. He was found to be constipated and he was given Mag citrate x2. Did have a bowel movement. He does have atrial fibrillation. He is on Eliquis and metoprolol, which was stable . He did have an episode of atrial fibrillation with aberrancy and not ventricular tachycardia per C ardiology. His electrolytes were corrected. He did have low potassium. Going forward, Cardiology r ecommended to discontinue hydrochlorothiazide and continue with Lasix only. His elevated white blood cell count was likely due to steroids. His procalcitonin was negative. There was no signs of sepsi s. He was initially placed on Cipro and Flagyl to cover for abdominal source of infection; however C T scan was negative and pain resolved, IV antibiotics were discontinued. Patient was also evaluated by Pulmonology. His blood cultures and sputum cultures were negative to date. Patient also complain ed of some hip pain. X-ray did not show any fracture or dislocation. His chest x-ray continued to s how subsegmental atelectasis. This is likely due to him being mostly bed-bound and not ambulating we . He was given incentive spirometer. Patient was not very compliant with it. Patient was evaluat ed by Physical Therapy. He did not wish to go to senior living facility and wished to go home with home PT first. Patient was recommended to follow up with his primary care, Dr. Dennison, in 2-3 days and to have follow up with Neurology or Neurosurgery regarding his spinal stenosis. He will continu e steroids and will need to also follow up with Pulmonology, Dr. Borges in 2 weeks and follow up [facility], Dr. Vasquez in 2-4 weeks. Patient does use CPAP at home for his sleep apnea and is on oxygen as needed. Overall, the patient did well. He was then cleared for discharge, sent home in a stable condition. Home health was initiated with PT as the patient refused, he understands the risk s associated with not going to a proper level of care including senior living facility, where he wo uld receive more intensive therapy than at home and would have nurses and other staff watching over h im. He understands that he is more at risk for falls including trauma, head bleed as he is on blood thinners, fractures, and possibly even . Patient is adamant about going home with PT, not inter ested in inpatient rehab at this time. Understands risks and benefits. Alert and oriented x3. Physical Examination: General: Awake, alert, and oriented x3. No acute distress. CV: S1, S2. Respiratory: Moving air well. Slightly diminished breath sounds at the bases. Gastrointestinal: Abdomen is soft, nontender, nondistended. Positive bowel sounds. Umbilical herni a present, reducible. Extremities: No clubbing or cyanosis. Patient has lower extremity edema. Skin: Cyanosis of lower extremities. Neurologic: Nonfocal. Total time spent discharging the patient was 45 minutes. /RIA Voice ID: [id number] Report ID: [id number]
== END 2019-04-12 17:35 | disposition home health service (06) | DRG 313 ==
LOC: ER 10:43 → INTOOBSV 14:07 → ERHOLD 14:07 → 4TH 18:39 → OBSVTOIN 04-11 11:21
PROVIDERS: ADMIT Family Medicine; ATTEND Family Medicine
DX: R07.89 Other chest pain (principal); I48.20 Chronic atrial fibrillation, unspecified; D72.829 Elevated white blood cell count, unspecified; I25.10 Atherosclerotic heart disease of native coronary artery without angina pectoris; I10 Essential (primary) hypertension; I49.3 Ventricular premature depolarization; F17.210 Nicotine dependence, cigarettes, uncomplicated; K74.60 Unspecified cirrhosis of liver; E66.9 Obesity, unspecified; E78.2 Mixed hyperlipidemia; K21.9 Gastro-esophageal reflux disease without esophagitis; I95.9 Hypotension, unspecified; G47.30 Sleep apnea, unspecified; R23.0 Cyanosis; M25.551 Pain in right hip; K59.00 Constipation, unspecified; Z68.35 Body mass index [BMI] 35.0-35.9, adult; Z79.52 Long term (current) use of systemic steroids; Z99.81 Dependence on supplemental oxygen; I25.2 Old myocardial infarction
CPT/HCPCS: 36415; 71045; 74177; 80048; 80053; 80076; 81003; 82805; 83605; 83690; 83735; 83880; 84145; 84484; 85025; 85610; 87040; 87070; 87086; 87088; 87205; 93005; 93306; 94640; 96361; 96365; 96366; 96367; 96375; 97112; 97116; 97161; 97530; 99285; G0378; J0744; J2405; J7030; J7040; J7512; Q9967

== ENCOUNTER 2019-12-16 04:37 | Inpatient (IN) | payer OTHER ==
[2019-12-16 05:07] LABS: Absolute Lymphocytes (CBC) 0.9 K/uL (0.7-4.9); Basophils % 0.3 % (0-1.3); Hematocrit 29.8 % (39.6-49.0); Lymphocytes % 5.9 % (15.3-44.8); MPV 7.6 fL (7.6-11.3); RBC Red Blood Cell Count 3.62 M/uL (4.33-5.43)
[2019-12-16 05:11] LABS: Protime INR 1.42
[2019-12-16 05:15] LABS: Arterial Blood Carboxyhemoglob 1.9 % (0-1.5); Blood Gas Oxyhemoglobin 93.4 % (94-97); Blood O2 Saturation 96.1 % (92-98.5)
[2019-12-16 05:30] LABS: Albumin 3.3 g/dL (3.4-5.0); Bilirubin Direct 0.3 mg/dL (0-0.2); Bilirubin Total 0.7 mg/dL (0.2-1.0); C-Reactive Protein 34.3 mg/L (<3.00); Ferritin 20.8 ng/mL (26-388); Protein, Total 6.6 g/dL (6.4-8.2); Troponin (Emerg Dept Use Only) 0.08 ng/mL (0.0-0.045)
[2019-12-16] MEDS ORDERED: Levofloxacin 750mg IV 750 MG/150 ML BAG IV ONE (06:09)
--- NOTE | 2019-12-16 06:12 | ER ---
Nurse's Notes [facility] Name: Caesar Gagnon Age: 79 yrs Sex: Male : 1940 Arrival Date: 12/16/2019 Time: 04:39 Bed 8 Private MD: Diagnosis: Pneumonia, unspecified organism;Chronic obstructive pulmonary disease with acute lower respiratory infection Presentation: 12/15 04:42 Chief complaint: EMS states: he is known case COPD, CHF on Home O2, complaining of mg2 shortness of breath and cough. Coronavirus screen: Client presents with at least one sign or symptom that may indicate coronavirus-19. Standard/surgical mask placed on the client. Provider contacted for isolation considerations. Ebola Screen: No symptoms or risks identified at this time. Initial Sepsis Screen: Does the patient meet any 2 criteria? RR > 20 per min. HR > 90 bpm. Does the patient have a suspected source of infection? Yes: Productive cough/pneumonia. Risk Assessment: Do you want to hurt yourself or someone else? Patient reports no desire to harm self or others. Onset of symptoms was December 16, 2019. 04:42 Method Of Arrival: EMS: [facility] mg2 04:42 Acuity: CHRISTIANO 2 mg2 Historical: - Allergies: 05:10 No Known Allergies; sg - PMHx: 05:10 Atrial Fib; Hypertension; sg - Immunization history:: Adult Immunizations not up to date. - Family history:: not pertinent. - Social history:: Smoking status: Patient denies any tobacco usage or history of. - Hospitalizations: : No recent hospitalization is reported. Screenin:46 Abuse screen: Denies threats or abuse. Denies injuries from another. Nutritional mg2 screening: No deficits noted. Tuberculosis screening: No symptoms or risk factors identified. Fall Risk IV access (20 points). Assessment: 04:46 General: code sepsis 700 called . mg2 05:00 Neuro: Level of Consciousness is awake, alert, obeys commands, Oriented to person, mg2 place, time, situation. Cardiovascular: Capillary refill < 3 seconds Patient's skin is warm and dry. Respiratory: Airway is patent Respiratory effort is even, labored, Breath sounds with rhonchi in left upper lobe and left lower lobe. GI: No signs and/or symptoms were reported involving the gastrointestinal system. : No signs and/or symptoms were reported regarding the genitourinary system. EENT: No signs and/or symptoms were reported regarding the EENT system. Derm: Skin is intact, is healthy with good turgor, Skin is pink, warm \T\ dry. normal. Musculoskeletal: Circulation, motion, and sensation intact. Capillary refill < 3 seconds. 05:09 Reassessment: NET MOBILE DEVELOPER at bedside for ABG at this time, Breathing tx to be started once ABG sg is complete. 05:38 General: Appears distressed, Behavior is calm, cooperative. Pain: Denies pain. mg2 Vital Signs: 04:42 BP 179 / 76; Pulse 98; Resp 38; Temp 99.3; Pulse Ox 99% on 3 lpm NC; mg2 06:01 BP 157 / 68; Pulse 110; Resp 28; Pulse Ox 98% on BiPAP; mg2 07:20 BP 146 / 71; Pulse 95; Resp 26; Pulse Ox 100% on BiPAP; Pain 0/10; jr10 ED Course: 04:35 Initial lab(s) drawn, by me, sent to lab. First set of blood cultures drawn by me. sg 04:39 Patient arrived in ED. sg 04:39 Lonny Ruby MD is Attending Physician. rn 04:42 Russel Orellana RN is Primary Nurse. mg2 04:43 Inserted saline lock: 20 gauge in right hand, using aseptic technique. Blood collected. sg 04:44 Second set of blood cultures drawn by me. sg 04:45 Triage completed. mg2 04:46 Patient has correct armband on for positive identification. Head of bed elevated. mg2 05:23 Notified ED physician of a critical lab result(s). D Dimer [id number]. sg 06:11 José Luis Dennison MD is Hospitalizing Provider. rn 06:37 CXR XRAY In Process Unspecified. EDMS 06:41 No provider procedures requiring assistance completed. Patient admitted, IV remains in mg2 place. 06:54 Hospitalizing Provider role handed off by José Luis Dennison MD rn 06:54 Prince Pleitez MD is Hospitalizing Provider. rn 07:20 Report received from TIMOTHY Goode. Pt is ED hold. See [employer] charting system for jr10 additional documentation and orders. Administered Medications: 04:53 CANCELLED (Duplicate Order): Albuterol - atroVENT (3:1) (2.5 mg - 0.5 mg) 3 ml rn Nebulizer once 05:17 Drug: Xopenex (3) 1.25 mg Route: Inhalation; mg2 06:43 Follow up: Response: No adverse reaction mg2 05:55 Drug: LevaQUIN 750 mg Volume: 150 ml; Route: IVPB; Infused Over: 90 mins; Site: right sg hand; 07:30 Follow up: Response: No adverse reaction; IV Status: Completed infusion jr10 Outcome: 06:11 Decision to Hospitalize by Provider. rn 06:45 Admitted to ER Hold. Please see [facility] for further documentation. mg2 12:00 Patient left the ED. jr10 Signatures: Dispatcher [employer] EDClyde Zapata RN RN Lonny Ruby MD MD rn Gardose, Michele, RN RN [facility] Adelaide Baum RN RN jr10
--- NOTE | 2019-12-16 06:13 | EDPHYS ---
Physician Documentation [facility] Name: Ceasar Gagnon Age: 79 yrs Sex: Male : 1940 Arrival Date: 12/16/2019 Time: 04:39 Bed 8 Private MD: ED Physician Lonny Ruby HPI: 12/15 04:42 This 79 yrs old Male presents to ER via Unassigned with complaints of rn Productive Cough, Shortness Of Breath. 04:42 The patient or guardian reports cough, described as mild, with productive sputum. rn Onset: The symptoms/episode began/occurred 3 day(s) ago. Severity of symptoms: At their worst the symptoms were moderate, in the emergency department the symptoms are unchanged. Modifying factors: The symptoms are alleviated by nothing, the symptoms are aggravated by nothing. The patient has experienced similar episodes in the past. Reports cough and sob for a few days, no fever, with similar symptoms, no known COVID exposure, given steroids and breathing treatment by EMS, reports feels a little better. NO hemoptysis. No sore throat/runny nose/neck pain/diarrhea/vomiting/loss of taste or smell. . Historical: - Allergies: 05:10 No Known Allergies; sg - PMHx: 05:10 Atrial Fib; Hypertension; sg - Immunization history:: Adult Immunizations not up to date. - Family history:: not pertinent. - Social history:: Smoking status: Patient denies any tobacco usage or history of. - Hospitalizations: : No recent hospitalization is reported. ROS: 04:42 Constitutional: Negative for fever, chills, and weight loss, Eyes: Negative for injury, rn pain, redness, and discharge, Neck: Negative for injury, pain, and swelling, Cardiovascular: Negative for chest pain, palpitations, and edema, Respiratory: + cough and sob Abdomen/GI: Negative for abdominal pain, nausea, vomiting, diarrhea, and constipation, MS/Extremity: Negative for injury and deformity, Skin: Negative for injury, rash, and discoloration, Neuro: Negative for headache, weakness, numbness, tingling, and seizure. Exam: 04:46 Constitutional: This is a well developed, well nourished patient who is awake, alert, rn + moderate tachypnea Head/Face: Normocephalic, atraumatic. ENT: No stridor Cardiovascular: Regular rate, irregular rhythm Respiratory: + moderate tachypnea, diminished at bases with wheezing Abdomen/GI: soft, non-tender, + umbilical hernia that is soft and not discolored MS/ Extremity: Pulses equal, no cyanosis. Neurovascular intact. 3+ pitting edema bilateral lower ext Neuro: Awake and alert, GCS 15 05:15 ECG was reviewed by the Attending Physician. rn Vital Signs: 04:42 BP 179 / 76; Pulse 98; Resp 38; Temp 99.3; Pulse Ox 99% on 3 lpm NC; mg2 06:01 BP 157 / 68; Pulse 110; Resp 28; Pulse Ox 98% on BiPAP; mg2 07:20 BP 146 / 71; Pulse 95; Resp 26; Pulse Ox 100% on BiPAP; Pain 0/10; jr10 MDM: 04:39 Patient medically screened. rn 04:41 ED course: Pt given solumedrol and albuterol by EMS. . rn 06:10 Differential Diagnosis: Bronchitis Influenza Viral Syndrome Pneumonia Other COVID-19. rn Data reviewed: vital signs, nurses notes, lab test result(s), EKG, radiologic studies, plain films, and as a result, I will admit patient. Counseling: I had a detailed discussion with the patient and/or guardian regarding: the historical points, exam findings, and any diagnostic results supporting the discharge/admit diagnosis, lab results, radiology results, the need for further work-up and treatment in the hospital. Response to treatment: the patient's symptoms have mildly improved after treatment, and as a result, I will admit patient. Admission orders: after a detailed discussion of the patient's condition and case, the admit orders are written by me. 06:10 ED course: Pt with good ABG, improved on BIPAP, will admit to Dr. Dennison for Pneumonia rn and COPD exacerbation.. 12/15 04:41 Order name: Blood Culture Adult (2) rn 12/15 04:41 Order name: BMP rn 12/15 04:41 Order name: C-Reactive Protein; Complete Time: 06:32 rn 12/15 04:41 Order name: CBC with Diff rn 12/15 04:41 Order name: COVID-19 rn 12/15 04:41 Order name: D-Dimer; Complete Time: 05:42 rn 08/04 04:41 Order name: Ferritin; Complete Time: 06:32 rn 12/15 04:41 Order name: Lactate; Complete Time: 05:42 rn 12/15 04:41 Order name: LFT's; Complete Time: 06:32 rn 12/15 04:41 Order name: Procalcitonin rn 12/15 04:41 Order name: PT-INR; Complete Time: 05:42 rn 12/15 04:41 Order name: Ptt, Activated; Complete Time: 05:42 rn 12/15 04:41 Order name: Troponin (emerg Dept Use Only); Complete Time: 06:32 rn 12/15 04:41 Order name: Blood Culture EDMS 12/15 04:41 Order name: CXR XRAY rn 12/15 04:41 Order name: EKG; Complete Time: 04:42 rn 12/15 04:41 Order name: Cardiac monitoring; Complete Time: 05:12 rn 12/15 04:41 Order name: Droplet/Contact Precautions; Complete Time: 05:12 rn 12/15 04:41 Order name: EKG - Nurse/Tech; Complete Time: 05:12 rn 12/15 04:41 Order name: Basic Metabolic Panel; Complete Time: 06:32 EDMS 12/15 04:50 Order name: ABG; Complete Time: 05:42 rn 12/15 04:53 Order name: BIPAP rn 12/15 05:18 Order name: Manual Differential EDMS 12/15 05:32 Order name: NT PRO-BNP; Complete Time: 06:32 EDMS 12/15 11:27 Order name: Troponin I EDMS 12/15 04:41 Order name: IV Start; Complete Time: 05:12 rn 12/15 04:41 Order name: Labs collected and sent; Complete Time: 05:12 rn 12/15 04:41 Order name: Notify Health Dept [phone]/ ; Complete Time: 06:44 rn 12/15 04:41 Order name: O2 Per Protocol; Complete Time: 05:12 rn 12/15 04:41 Order name: O2 Sat Monitoring; Complete Time: 05:11 rn EC:15 Rate is 89 beats/min. Rhythm is irregularly irregular. QRS Kimberly is Normal. OR interval rn is normal. QRS interval is normal. QT interval is normal. T waves are Normal. No ST changes noted. Clinical impression: Atrial Fibrillation. Interpreted by me. Reviewed by me. Administered Medications: 04:53 CANCELLED (Duplicate Order): Albuterol - atroVENT (3:1) (2.5 mg - 0.5 mg) 3 ml rn Nebulizer once 05:17 Drug: Xopenex (3) 1.25 mg Route: Inhalation; mg2 06:43 Follow up: Response: No adverse reaction mg2 05:55 Drug: LevaQUIN 750 mg Volume: 150 ml; Route: IVPB; Infused Over: 90 mins; Site: right sg hand; 07:30 Follow up: Response: No adverse reaction; IV Status: Completed infusion jr10 Disposition: 12/16/19 06:11 Hospitalization ordered by Prince Maik for Inpatient Admission. Preliminary diagnosis are Pneumonia, unspecified organism, Chronic obstructive pulmonary disease with acute lower respiratory infection. - Bed requested for Telemetry/MedSurg (Inpatient). - Status is Inpatient Admission. jr10 - Condition is Stable. - Problem is new. - Symptoms have improved. Critical care time excluding procedures: 06:10 Critical care time: Bedside Care: 30 minutes. Total time: 30 minutes rn Signatures: Dispatcher [employer] EDRI Ana Rodriguez RN RN mw Woody, Diana RN Clyde Chester, RN Lonny Medrano MD MD rn Gardose, Michele, RN TIMOTHY mg2 Adelaide Baum, RN RN jr10 Corrections: (The following items were deleted from the chart) 04:47 04:42 Constitutional: Negative for fever, chills, and weight loss, Eyes: Negative for rn injury, pain, redness, and discharge, Neck: Negative for injury, pain, and swelling, Cardiovascular: Negative for chest pain, palpitations, and edema, Respiratory: + cough and sob Abdomen/GI: Negative for abdominal pain, nausea, vomiting, diarrhea, and constipation, rn 04:53 04:53 Albuterol - atroVENT (3:1) (2.5 mg - 0.5 mg) 3 ml Nebulizer once ordered. rn rn 05:32 04:50 PROBNP+C.LAB.BRZ ordered. EDRI EDMS 06:20 06:11 Hospitalization Ordered by José Luis Dennison MD for Inpatient Admission. Preliminary diagnosis is Pneumonia, unspecified organism; Chronic obstructive pulmonary disease with acute lower respiratory infection. Bed requested for Telemetry/MedSurg (Inpatient). Status is Inpatient Admission. Condition is Stable. Problem is new. Symptoms have improved. rn 06:25 06:20 12/16/2019 06:11 Hospitalization Ordered by José Luis Dennison MD for Inpatient mw Admission. Preliminary diagnosis is Pneumonia, unspecified organism; Chronic obstructive pulmonary disease with acute lower respiratory infection. Bed requested for [facility] ER HOLD. Status is Inpatient Admission. Condition is Stable. Problem is new. Symptoms have improved. mw 06:54 06:25 12/16/2019 06:11 Hospitalization Ordered by José Luis Dennison MD for Inpatient referral rn. Preliminary diagnosis is Pneumonia, unspecified organism; Chronic obstructive pulmonary disease with acute lower respiratory infection. Bed requested for [facility] ER HOLD. Status is Inpatient Admission. Condition is Stable. Problem is new. Symptoms have improved. mw 08:45 06:54 12/16/2019 06:11 Hospitalization Ordered by Prince Maik NAVARRETE for Inpatient dw Admission. Preliminary diagnosis is Pneumonia, unspecified organism; Chronic obstructive pulmonary disease with acute lower respiratory infection. Bed requested for [facility] ER HOLD. Status is Inpatient Admission. Condition is Stable. Problem is new. Symptoms have improved. rn 12:00 08:45 12/16/2019 06:11 Hospitalization Ordered by Prince Maik [facility] for Inpatient jr10 Admission. Preliminary diagnosis is Pneumonia, unspecified organism; Chronic obstructive pulmonary disease with acute lower respiratory infection. Bed requested for Telemetry/MedSurg (Inpatient). Status is Inpatient Admission. Condition is Stable. Problem is new. Symptoms have improved. dw
[2019-12-16 07:13] LABS: Platelet Estimate ADEQ
[2019-12-16 07:14] LABS: Anisocytosis 1+; Blood Morphology Comment NOTED (NOT SEEN); Ovalocytes 1+
[2019-12-16 09:55] VITALS: BMI 35.9
[2019-12-16] MEDS ORDERED: IPRATROPIUM BROM 0.5MG/2.5ML NEB PRN (10:05)
[2019-12-16] MEDS ORDERED: ACETAMINOPHEN 500 MG TAB PO PRN (10:05)
[2019-12-16] MEDS ORDERED: ALBUTEROL 2.5 MG/3 ML NEB SOL NEB PRN (10:05)
[2019-12-16] MEDS: METHYLPREDNISOLONE 40 MG INJ IV SCH ×2 (10:05→17:37)
[2019-12-16] MEDS ORDERED: ONDANSETRON 4 MG/2 ML VIAL IV PRN (10:05)
--- NOTE | 2019-12-16 11:01 | EKG ---
Test Date: 2019-12-16 Test Time: 04:39:35 Interlocking And Signal Mechanic: MEASUREMENT RESULTS: Intervals: Rate: 89 UT: QRSD: 80 QT: 314 QTc: 382 [place]: P: UT: QRS: 16 T: 69 INTERPRETIVE STATEMENTS: Atrial fibrillation with premature ventricular or aberrantly conducted complexes Abnormal ECG Compared to ECG 04/08/2019 11:59:55 No significant changes Electronically Signed On 12-16-19 11:00:50 CDT by Adolfo Vasquez
--- NOTE | 2019-12-16 11:55 | P.HP ---
Certification for Inpatient Patient admitted to: Inpatient With expected LOS: >2 Midnights Patient will require the following post-hospital care: None Practitioner: I am a practitioner with admitting privileges, knowledge of patient current condition, hospital course, and medical plan of care. Services: Services provided to patient in accordance with Admission requirements found in Title 42 Section 412.3 of the Code of Federal Regulations Patient History Date of Service: 12/16/19 Primary Care Provider: Claudio Reason for admission: Pneumonia, hypoxia , dyspnea History of Present Illness: 79-year-old male with medical history of coronary artery disease, COPD on chronic home oxygen therapy, atrial fibrillation on chronic anticoagulation therapy, former tobacco abuse presents emergency department for worsening shortness breath over the course of the last 1 week. Upon presentation to the emergency department patient was tachypneic with respiratory rate around 38. Patient reports that he has been having a productive cough as well as low-grade fever. During his evaluation in the emergency department patient is found to have right lower lobe pneumonia and COPD exacerbation. Patient also appears to be volume overloaded with 2 to 3+ pitting edema bilateral lower extremities. ED provider wishes to admit patient for further evaluation and management. When I saw the patient in the emergency department he was on BiPAP, tolerating this well. Patient reports increasing shortness breath of course the last 1 week. Patient with low-grade fever at 99. Patient is stable this time. Blood cultures obtained in the emergency department. Allergies No Known Drug Allergies Allergy (Verified 11/24/15 11:48) Unknown Home medications list reviewed: Yes Home Medications: Atorvastatin Calcium [Lipitor] 40 mg PO BEDTIME 07/26/11 Furosemide [Lasix] 80 mg PO DAILY 07/26/11 Tiotropium [place] [Spiriva] 1 spray IH DAILY 07/26/11 Albuterol Sulfate [Albuterol Sulfate 0.083% Neb Soln] 2.5 mg IH Q6HP PRN #60 ml 07/26/14 Apixaban [Eliquis] 1 tab PO BID 10/01/15 L.acidoph,Paracasei, B.lactis [Probiotic] 1 each PO DAILY 10/01/15 Mupirocin Oint [Bactroban 2% Ointment*] 22 gm TP BID PRN 10/01/15 lisinopriL [Prinivil*] 20 mg PO BID 11/24/15 Aspirin [[place] Aspirin EC] 1 tab PO DAILY 11/06/16 Famotidine [Pepcid*] 1 tab PO DAILY 11/06/16 Potassium Chloride [Micro-K] 2 cap PO DAILY 11/06/16 Albuterol Inhaler [Ventolin Inhaler*] 2 puff IH QID 04/09/19 Allopurinol 300 mg PO DAILY 04/09/19 Fluticasone/Vilanterol [Breo Ellipta 200-25 Mcg INH] 1 puff IH DAILY 04/09/19 Metoprolol Tartrate [Lopressor*] 12.5 mg PO BID 6AM 6PM 04/09/19 Zolpidem Tartrate [Ambien*] 10 mg PO BEDTIME PRN 04/09/19 predniSONE [Deltasone*] 10 mg PO DAILY PRN 04/09/19 - Past Medical/Surgical History Has patient received pneumonia vaccine in the past: Yes Diabetic: No -: COPD -: HTN -: SLEEP APNEA -: AFIB -: CAD -: [place] -: CELLULITIS -: CVA -: CARTILIDGE REPAIR -: BOWEL SURGERY -: CARDIAC STENTS -: TONSILLECTOMY Psychosocial/ Personal History: Patient lives at home with his - Family History Family History: Reviewed- Non-Contributory - Social History Smoking Status: Former smoker Alcohol use: No CD- Drugs: No Caffeine use: No Place of Residence: Home Review of Systems 10-point ROS is otherwise unremarkable Respiratory: Cough, Shortness of Breath Musculoskeletal: Pedal edema Physical Examination - Vital Signs Temperature: 98.3 F Blood Pressure: 146/74 Pulse: 97 Respirations: 28 Pulse Ox (%): 100 - Physical Exam General: Alert, In no apparent distress, Oriented x3 HEENT: Atraumatic, Normocephalic, PERRLA, Other (Mucous membranes dry) Neck: Supple Respiratory: Diminished, Crackles/rales (Bilaterally) Cardiovascular: Edema (Bilateral lower extremities 2+ pitting edema) Capillary refill: <2 Seconds Gastrointestinal: Normal bowel sounds, Soft and benign Musculoskeletal: No contractures, No erythema, No tenderness Integumentary: No tenderness/swelling, No erythema, No warmth Neurological: Normal speech - Studies Laboratory Data (last 24 hrs) 12/16/19 04:35: PT 16.6 H, INR 1.42, APTT 38.3 H 12/16/19 04:35: WBC 15.4 H, Hgb 9.3 L, Hct 29.8 L, Plt Count 338 12/16/19 04:35: Sodium 142, Potassium 5.0, BUN 21 H, Creatinine 1.22, Glucose 111 H, Total Bilirubin 0.7, AST 15, ALT 23, Alkaline Phosphatase 127 H Assessment and Plan - Plan Assessment Acute on chronic respiratory failure with Hypoxia and dyspnea secondary to pneumonia complicated with history of COPD on chronic oxygen therapy Pedal edema secondary to chronic diastolic congestive heart failure, last ejection fraction 52% in 2019 Atrial fibrillation on chronic anticoagulation therapy Coronary artery disease Hypertension Plan Acute on chronic respiratory failure with Hypoxia and dyspnea secondary to pneumonia complicated with history of COPD on chronic oxygen therapy: Patient was admitted for further evaluation and management. Cardiology and pulmonology on board. Will continue with steroids, antibiotics at this time. Will also treat with Lasix. Blood cultures obtained in the emergency department, will continue to follow. Continue with oxygen therapy, BiPAP at this time. Patient reportedly has home oxygen set up and it CPAP for sleep apnea. Acute on chronic diastolic congestive heart failure, last ejection fraction 52% in 2019: Continue with diuretic therapy. Appreciate further input from cardiology. Troponin was also slightly elevated, will continue to trend. Atrial fibrillation on chronic anticoagulation therapy: Will restart home medications verified. Coronary artery disease: Restart home medications verified. Hypertension: Restart home medications once verified. Discharge Plan: Home Plan to discharge in: 48 Hours - Advance Directives Does patient have a Living Will: Yes Does patient have a Durable POA for Healthcare: Yes - Code Status/Comfort Care Code Status Assessed: Yes (Patient is full code) Critical Care: No Time Spent Managing Pts Care (In Minutes): 55
[2019-12-16] MEDS: FUROSEMIDE 40 MG/4 ML VIAL IV SCH (17:36)
[2019-12-16] MEDS ORDERED: ALBUTEROL 2.5 MG/3 ML NEB SOL IH PRN (18:38)
[2019-12-16] MEDS ORDERED: ZOLPIDEM TARTRATE 10 MG TABLET PO PRN (18:38)
[2019-12-16] MEDS ORDERED: HYDRALAZINE HCL 25 MG TABLET PO PRN (19:00)
[2019-12-16] MEDS ORDERED: HEPARIN 5000 UNIT/ML 1 ML VIAL SQ SCH (21:00)
[2019-12-16] MEDS ORDERED: ATORVASTATIN 40 MG TAB PO SCH (21:00)
[2019-12-16] MEDS: lisinopriL 20 MG TAB PO SCH (22:12)
[2019-12-16] MEDS: APIXABAN 5 MG TABLET PO SCH (22:13)
[2019-12-16] MEDS: ALBUTEROL INHALER 60 PUFF/8 GM IH SCH (22:21)
[2019-12-17] MEDS: METHYLPREDNISOLONE 40 MG INJ IV SCH ×2 (00:49→09:22)
[2019-12-17] MEDS: FUROSEMIDE 40 MG/4 ML VIAL IV SCH ×2 (00:49→09:21)
[2019-12-17 05:27] LABS: Absolute Lymphocytes (CBC) 0.3 K/uL (0.7-4.9); Basophils % 0.1 % (0-1.3); Hematocrit 29.1 % (39.6-49.0); MPV 7.4 fL (7.6-11.3); RBC Red Blood Cell Count 3.58 M/uL (4.33-5.43)
[2019-12-17] MEDS ORDERED: NA CHLORIDE 0.9% 250 ML ONE (05:40)
[2019-12-17 05:46] LABS: C-Reactive Protein 20.3 mg/L (<3.00); Potassium 4.4 mmol/L (3.5-5.1)
[2019-12-17] MEDS ORDERED: Levofloxacin500mg IV 500 MG/100 ML BAG IV SCH (06:00)
[2019-12-17] MEDS ORDERED: METOPROLOL TAR 25 MG TAB PO SCH (06:00)
--- NOTE | 2019-12-17 08:37 | P.CNS ---
Date of Consult: 12/17/19 Reason for Consult: COPD exacerbation Primary Care Provider: Claudio Chief Complaint: shortness of breath History of Present Illness: patient is well known to me is 79 with a history off a COPD admitted with worsening dyspnea on exertion for a month been compliant with his medication he has gained a lot of weight recently denies any fever chills no evidence of a ramirez virus infection Allergies No Known Drug Allergies Allergy (Verified 11/24/15 11:48) Unknown Home Medications: Atorvastatin Calcium [Lipitor] 40 mg PO BEDTIME 07/26/11 Furosemide [Lasix] 40 mg PO BID 07/26/11 Albuterol Sulfate [Albuterol Sulfate 0.083% Neb Soln] 2.5 mg IH Q6HP PRN #60 ml 07/26/14 Apixaban [Eliquis] 1 tab PO BID 10/01/15 L.acidoph,Paracasei, B.lactis [Probiotic] 1 each PO DAILY 10/01/15 Mupirocin Oint [Bactroban 2% Ointment*] 22 gm TP BID PRN 10/01/15 lisinopriL [Prinivil*] 20 mg PO BID 11/24/15 Aspirin [[place] Aspirin EC] 1 tab PO DAILY 11/06/16 Famotidine [Pepcid*] 1 tab PO DAILY 11/06/16 Potassium Chloride [Micro-K] 2 cap PO DAILY 11/06/16 Albuterol Inhaler [Ventolin Inhaler*] 2 puff IH QID 04/09/19 Allopurinol 300 mg PO DAILY 04/09/19 Fluticasone/Vilanterol [Breo Ellipta 200-25 Mcg INH] 1 puff IH DAILY 04/09/19 Metoprolol Tartrate [Lopressor*] 12.5 mg PO BID 6AM 6PM 04/09/19 Zolpidem Tartrate [Ambien*] 10 mg PO BEDTIME PRN 04/09/19 predniSONE [Deltasone*] 10 mg PO DAILY PRN 04/09/19 Emollient Combination No.92 [Lubriderm Daily Moisture] 177 ml TP BID 12/16/19 Hydralazine [Apresoline*] 1 tab PO PRN 12/16/19 - Past Medical/Surgical History Diabetic: No -: COPD -: HTN -: SLEEP APNEA -: AFIB -: CAD -: [place] -: CELLULITIS -: CVA -: CARTILIDGE REPAIR -: BOWEL SURGERY -: CARDIAC STENTS -: TONSILLECTOMY Psychosocial/ Personal History: Patient lives at home with his - Social History Smoking Status: Current every day smoker Alcohol use: No CD- Drugs: No Caffeine use: No Place of Residence: Home Review of Systems 10-point ROS is otherwise unremarkable Respiratory: Shortness of Breath Cardiovascular: Edema Physical Examination Temp Pulse Resp BP Pulse Ox 98.0 F 85 20 129/75 95 12/17/19 04:00 12/17/19 04:00 12/17/19 04:00 12/17/19 04:00 12/17/19 04:00 General: Alert, Oriented x3 Respiratory: Clear to auscultation bilaterally Cardiovascular: Normal pulses, Edema Gastrointestinal: Normal bowel sounds, Soft and benign - Problems (1) COPD exacerbation Onset Date: 11/16/15 Current Visit: No Status: Chronic Plan: patient is 79 years of age well known to me with a history of sleep apnea and COPD admitted with worsening dyspnea over the past month ramirez virus tests is negative arterial blood gases are satisfactory there is no evidence of an infection blood gases reviewed white count is mildly elevated patient can be discharged home on Breo and Spiriva he prefers at the end trilogy I have also will send in a prescription for dLIRESP. patient will not qualify for a BiPAP follow with me next week patient is not coughing up any sputum
[2019-12-17] MEDS ORDERED: FAMOTIDINE 20 MG TAB PO SCH (09:00)
[2019-12-17] MEDS ORDERED: allopurinoL 300 MG TAB PO SCH (09:00)
[2019-12-17] MEDS ORDERED: ASPIRIN EC 81 MG TAB PO SCH (09:00)
--- NOTE | 2019-12-17 09:08 | P.DS ---
Admission Date: 12/16/19 Discharge Date: 12/17/19 Primary Care Provider: Claudio Disposition: ROUTINE DISCHARGE Discharge Condition: FAIR Reason for Admission: shortness of breath Consultations: Cardiology-Dr. Vasquez Pulmonology-Dr. Borges Procedures: Chest Xray-bibasilar atelectasis versus pneumonia. Please see report for further details. Brief History of Present Illness: 79-year-old male with medical history of coronary artery disease, COPD on chronic home oxygen therapy, atrial fibrillation on chronic anticoagulation therapy, former tobacco abuse presents emergency department for worsening shortness breath over the course of the last 1 week. Upon presentation to the emergency department patient was tachypneic with respiratory rate around 38. Patient reports that he has been having a productive cough as well as low-grade fever. During his evaluation in the emergency department patient is found to have right lower lobe pneumonia and COPD exacerbation. Patient also appears to be volume overloaded with 2 to 3+ pitting edema bilateral lower extremities. ED provider wishes to admit patient for further evaluation and management. When I saw the patient in the emergency department he was on BiPAP, tolerating this well. Patient reports increasing shortness breath of course the last 1 week. Patient with low-grade fever at 99. Patient is stable this time. Blood cultures obtained in the emergency department. Hospital Course: 79-year-old male with medical history of coronary artery disease, COPD on chronic home oxygen therapy, atrial fibrillation on chronic anticoagulation therapy, former tobacco abuse presents emergency department for worsening shortness breath over the course of the last 1 week. Upon presentation to the emergency department patient was tachypneic with respiratory rate around 38. Patient reports that he has been having a productive cough as well as low-grade fever. During his evaluation in the emergency department patient is found to have bibasilar atelectasis and COPD exacerbation. Patient also appears to be volume overloaded with 2 to 3+ pitting edema bilateral lower extremities. Patient was admitted overnight and did very well on his nasal cannula at this same floor he uses at home in addition to CPAP which she also has. Patient reports he is feeling well this morning, patient is at the bedside on nasal cannula eating with saturation 99%. Patient evaluated by pulmonology who is also his primary manager leasing and very familiar with him. Pulmonology recommends no antibiotic therapy at this time as blood cultures are negative so far and states that he will send been prescriptions for additional inhaled medications from his office. Patient also with mildly elevated troponin at 0.08, this has remained stable during the hospitalization. Patient was evaluated by cardiology who is also his primary order entry, they are comfortable with his current regimen. Both cardiology and pulmonology consultation being discharged following up on outpatient basis. Patient in no respiratory distress at this time. Saturations are acceptable on nasal cannula which she has at home. The discharge patient will continue with his other medications as prescribed by his primary care doctor with the addition of inhaled medications from pulmonology. Vital Signs/Physical Exam: Temp Pulse Resp BP Pulse Ox 98.0 F 85 20 129/75 95 12/17/19 04:00 12/17/19 04:00 12/17/19 04:00 12/17/19 04:00 12/17/19 04:00 General: Alert, In no apparent distress, Oriented x3, Obese HEENT: Atraumatic, Normocephalic, PERRLA Neck: Supple Respiratory: Clear to auscultation bilaterally, Diminished, Crackles/rales (Mild bibasilar) Cardiovascular: Edema (2+ pitting edema, patient reports this is about his baseline) Capillary refill: <2 Seconds Gastrointestinal: Normal bowel sounds, Soft and benign Musculoskeletal: No contractures, No erythema, No tenderness Integumentary: No significant lesion, No tenderness/swelling, No erythema Neurological: Normal speech, Normal strength at 5/5 x4 extr, Normal tone Laboratory Data at Discharge: WBC 16.1 K/uL (4.3-10.9) H 12/17/19 05:07 Hgb 9.1 g/dL (13.6-17.9) L 12/17/19 05:07 Hct 29.1 % (39.6-49.0) L 12/17/19 05:07 Plt Count 327 K/uL (152-406) 12/17/19 05:07 PT 16.6 SECONDS (9.5-12.5) H 12/16/19 04:35 INR 1.42 12/16/19 04:35 APTT 38.3 SECONDS (24.3-36.9) H 12/16/19 04:35 Sodium 140 mmol/L (136-145) 12/17/19 05:07 Potassium 4.4 mmol/L (3.5-5.1) 12/17/19 05:07 BUN 27 mg/dL (7-18) H 12/17/19 05:07 Creatinine 1.16 mg/dL (0.55-1.3) 12/17/19 05:07 Glucose 139 mg/dL (74-106) H 12/17/19 05:07 Total Bilirubin 0.7 mg/dL (0.2-1.0) 12/16/19 04:35 AST 15 U/L (15-37) 12/16/19 04:35 ALT 23 U/L (12-78) 12/16/19 04:35 Alkaline Phosphatase 127 U/L (45-117) H 12/16/19 04:35 Troponin I 0.08 ng/mL (0.0-0.045) H 12/16/19 15:27 Home Medications: Atorvastatin Calcium [Lipitor] 40 mg PO BEDTIME 07/26/11 Furosemide [Lasix] 40 mg PO BID 07/26/11 Albuterol Sulfate [Albuterol Sulfate 0.083% Neb Soln] 2.5 mg IH Q6HP PRN #60 ml 07/26/14 Apixaban [Eliquis] 1 tab PO BID 10/01/15 L.acidoph,Paracasei, B.lactis [Probiotic] 1 each PO DAILY 10/01/15 Mupirocin Oint [Bactroban 2% Ointment*] 22 gm TP BID PRN 10/01/15 lisinopriL [Prinivil*] 20 mg PO BID 11/24/15 Aspirin [Swifton Aspirin EC] 1 tab PO DAILY 11/06/16 Famotidine [Pepcid*] 1 tab PO DAILY 11/06/16 Potassium Chloride [Micro-K] 2 cap PO DAILY 11/06/16 Albuterol Inhaler [Ventolin Inhaler*] 2 puff IH QID 04/09/19 Allopurinol 300 mg PO DAILY 04/09/19 Fluticasone/Vilanterol [Breo Ellipta 200-25 Mcg INH] 1 puff IH DAILY 04/09/19 Metoprolol Tartrate [Lopressor*] 12.5 mg PO BID 6AM 6PM 04/09/19 Zolpidem Tartrate [Ambien*] 10 mg PO BEDTIME PRN 04/09/19 predniSONE [Deltasone*] 10 mg PO DAILY PRN 04/09/19 Emollient Combination No.92 [Lubriderm Daily Moisture] 177 ml TP BID 12/16/19 Hydralazine [Apresoline*] 1 tab PO PRN 12/16/19 Patient Discharge Instructions: 1. Please follow up with the primary care d jann within 1-2 weeks to follow up this hospitalization. 2. You will need to follow up both with cardiology and pulmonology on outpatient basis. Please call put their offices to schedule follow up appointment. 3. Continue their home oxygen per nasal cannula and CPAP at night as per usual. 4. Dr. Borges will be sending some prescriptions for inhalers to your pharmacy. 5. 79-year-old male with medical history of coronary artery disease, COPD on chronic home oxygen therapy, atrial fibrillation on chronic anticoagulation therapy, former tobacco abuse presents emergency department for worsening shortness breath over the course of the last 1 week. Upon presentation to the emergency department patient was tachypneic with respiratory rate around 38. Patient reports that he has been having a productive cough as well as low-grade fever. During his evaluation in the emergency department patient is found to have bibasilar atelectasis and COPD exacerbation. Patient also appears to be volume overloaded with 2 to 3+ pitting edema bilateral lower extremities. Patient was admitted overnight and did very well on his nasal cannula at this same floor he uses at home in addition to CPAP which she also has. Patient reports he is feeling well this morning, patient is at the bedside on nasal cannula eating with saturation 99%. Patient evaluated by pulmonology who is also his primary manager leasing and very familiar with him. Pulmonology recommends no antibiotic therapy at this time as blood cultures are negative so far and states that he will send been prescriptions for additional inhaled medications from his office. Patient also with mildly elevated troponin at 0.08, this has remained stable during the hospitalization. Patient was evaluated by cardiology who is also his primary order entry, they are comfortable with his current regimen. Both cardiology and pulmonology consultation being discharged following up on outpatient basis. Patient in no respiratory distress at this time. Saturations are acceptable on nasal cannula which she has at home. The discharge patient will continue with his other medications as prescribed by his primary care doctor with the addition of inhaled medications from pulmonology. Diet: Low sodium Activity: Fall precautions Time spent managing pt's care (in minutes): 55
--- NOTE | 2019-12-17 09:12 | RAD REPORT ---
EXAM DESCRIPTION: XR Chest, 1 View CLINICAL HISTORY: Dyspnea;Cough TECHNIQUE: Frontal view of the chest. COMPARISON: No relevant prior studies available. FINDINGS: Limitations: The patient is rotated significantly to the right. Lungs: Bilateral basilar airspace consolidation present right greater than left. Pleural space: Probable small pleural effusions. No pneumothorax. Heart: Large cardiac shadow. Mediastinum: Unremarkable. Bones/joints: Unremarkable. IMPRESSION: Bilateral basilar atelectasis or pneumonia and small right pleural. Follow-up recommen ded. Electronically signed by: Cyndi Magana MD 12/16/2019 6:44 AM CDT Due to temporary technical issues with the PACS/Fluency reporting system, reports are being signed by the in house radiologist without review as a courtesy to ensure prompt reporting. The interpreting r adiologist is fully responsible for the content of the report.
[2019-12-17 09:14] VITALS: O2SAT 98
[2019-12-17 09:20] VITALS: BP 136/95; TEMP 96.9
[2019-12-17] MEDS: APIXABAN 5 MG TABLET PO SCH (09:22)
[2019-12-17] MEDS: ALBUTEROL INHALER 60 PUFF/8 GM IH SCH (09:23)
[2019-12-17] MEDS: lisinopriL 20 MG TAB PO SCH (09:23)
--- NOTE | 2019-12-17 22:03 | CON ---
Date of Consultation: 12/17/2019 Reason For Consultation: Elevated troponin, congestive heart failure and COPD. History Of Present Illness: Mr. Gagnon is a 79-year-old male. He is known to us from previous [facility] e visits and hospitalizations. He has chronic COPD. He has chronic systolic congestive heart failur e, came in with CHF and COPD exacerbation, was noted to have elevated troponin at 0.08. I was asked to consult on him. History Of Present Illness: Mr. Gagnon denied any chest pain, has mostly shortness of breath. He de nied any fever or chills. He had some nausea and diaphoresis. No vomiting. He has had pedal edema but no PND or orthopnea. Denied any palpitation or syncope. Allergies: HIS ALLERGIES ARE NONE. Review of Systems: Negative. Social History: Negative. Family History: Negative. Medications: At home include aspirin, Lipitor, inhalers, Eliquis, metoprolol, Pepcid, Lasix, hydrala zine, potassium, lisinopril, and prednisone. Past Medical History: 1.Atrial fibrillation. 2.Hypertension. 3.Dyslipidemia. 4.COPD. 5.Gastroesophageal reflux disease. 6.Chronic diastolic congestive heart failure. Physical Examination: Mr. Gagnon appeared to be in mlgq-ch-kqklyrio respiratory distress, had a facemask on. He was in sin us rhythm, afebrile. Vital Signs: Otherwise stable. HEENT: Negative. Neck: Supple without any bruit, lymphadenopathy, JVD, or thyromegaly. Chest: Revealed bilateral ral es and expiratory wheezing. Cardiac exam: Revealed a regular rhythm and rate with an S4 gallops. No murmurs or rubs. Abdomen: Obese. Extremities: Revealed 3+ edema to the knees. Skin: Moist. Neurologic: He was nonfocal. Pulses were absent in the dorsalis pedis and posterior tibial area. Diagnostic Data: EKG showed atrial fibrillation. White count was 15,000. D-dimer was 1092. Hemogl obin 9.3, troponin is 0.08. Impression And Plan: 1.Urxfe-qt-vbqwxqk diastolic congestive heart failure. He had a normal echo in March of 2019. 2.Chronic obstructive pulmonary disease exacerbation. 3.Elevated troponin secondary to congestive heart failure. 4.Chronic paroxysmal atrial fibrillation. 5.Hypertension. 6.Dyslipidemia. 7.Gastroesophageal reflux disease. The patient is on Lipitor, inhalers, Eliquis, metoprolol, Lasix, hydralazine, Pepcid, potassium, nakia nopril, and prednisone and I agree with all the medications for now. I would be more aggressive with his IV diuresis. Consider putting a Aldridge catheter and to keep better I's and O's, daily weight. W e will continue his present regimen. I do plan to see him as an outpatient eventually and do an echo cardiogram and Lexiscan. Meanwhile we will continue congestive heart failure and Chronic obstructive pulmonary disease treatment. MAVERICK/RIA Voice ID: [id number] Report ID: [id number]
== END 2019-12-17 10:40 | disposition home or self-care (01) | DRG 193 ==
LOC: ER 04:37 → ERHOLD 06:53 → 4TH 11:21 → 2ND 18:45
PROVIDERS: ADMIT Family Medicine; ATTEND Internal Medicine
DX: J18.9 Pneumonia, unspecified organism (principal); J96.21 Acute and chronic respiratory failure with hypoxia; I50.33 Acute on chronic diastolic (congestive) heart failure; J44.1 Chronic obstructive pulmonary disease with (acute) exacerbation; J44.0 Chronic obstructive pulmonary disease with (acute) lower respiratory infection; I11.0 Hypertensive heart disease with heart failure; I25.10 Atherosclerotic heart disease of native coronary artery without angina pectoris; I48.0 Paroxysmal atrial fibrillation; K21.9 Gastro-esophageal reflux disease without esophagitis; E78.5 Hyperlipidemia, unspecified; E66.9 Obesity, unspecified; I25.2 Old myocardial infarction; R05 Cough; R50.9 Fever, unspecified; Z20.828 Contact with and (suspected) exposure to other viral communicable diseases; Z79.82 Long term (current) use of aspirin; Z79.52 Long term (current) use of systemic steroids; Z79.899 Other long term (current) drug therapy; Z99.81 Dependence on supplemental oxygen; Z79.01 Long term (current) use of anticoagulants; Z87.891 Personal history of nicotine dependence; Z86.73 Personal history of transient ischemic attack (TIA), and cerebral infarction without residual deficits; Z68.35 Body mass index [BMI] 35.0-35.9, adult
CPT/HCPCS: 36415; 71045; 80048; 80076; 82728; 82805; 83605; 83880; 84145; 84484; 85025; 85379; 85610; 85730; 86140; 87040; 93005; 94660; 94760; 96365; 96366; 99285; J1940; J2920; J7050; U0002

== ENCOUNTER 2020-02-04 08:50 | Inpatient (IN) | payer OTHER ==
[2020-02-04] MEDS ORDERED: FUROSEMIDE 40 MG/4 ML VIAL ONE (09:22)
[2020-02-04 09:36] LABS: Protime INR 1.55
[2020-02-04 09:38] LABS: Absolute Lymphocytes (CBC) 0.6 K/uL (0.7-4.9); Basophils % 1.8 % (0-1.3); Hematocrit 24.6 % (39.6-49.0); Lymphocytes % 5.3 % (15.3-44.8); MPV 7.2 fL (7.6-11.3)
[2020-02-04 09:57] LABS: Albumin 3.4 g/dL (3.4-5.0); Bilirubin Direct 0.3 mg/dL (0-0.2); Bilirubin Total 0.9 mg/dL (0.2-1.0); Magnesium 2.1 mg/dL (1.8-2.4); Potassium 4.4 mmol/L (3.5-5.1); Protein, Total 6.2 g/dL (6.4-8.2); Troponin (Emerg Dept Use Only) 0.09 ng/mL (0.0-0.045)
[2020-02-04 10:10] LABS: Blood Morphology Comment NOTED (NOT SEEN); Hypochromasia 1+; Platelet Estimate ADEQ; White Blood Cell Scan OK (OK)
--- NOTE | 2020-02-04 10:28 | RAD REPORT ---
EXAM DESCRIPTION: Che Single View02/04/2020 9:44 am CLINICAL HISTORY: Chest pain COMPARISON: December 2019 FINDINGS: The lungs appear clear of acute infiltrate. Small right pleural effusion is suspected The heart remains enlarged
--- NOTE | 2020-02-04 10:43 | ER ---
Nurse's Notes [facility] Name: Caesar Gagnon Age: 79 yrs Sex: Male : 1940 Arrival Date: 02/04/2020 Time: 08:53 Bed 19 Private MD: Diagnosis: Unspecified combined systolic (congestive) and diastolic (congestive) heart failure;Anemia, unspecified Presentation: 02/03 08:59 Chief complaint: EMS states: SOB SINCE LAST PM. Coronavirus screen: difficulty bp breathing. Ebola Screen: No symptoms or risks identified at this time. Initial Sepsis Screen: Does the patient meet any 2 criteria? RR > 20 per min. No. Patient's initial sepsis screen is negative. Does the patient have a suspected source of infection? No. Patient's initial sepsis screen is negative. Risk Assessment: Do you want to hurt yourself or someone else? Patient reports no desire to harm self or others. Onset of symptoms was February 03, 2020 at 19:00. Care prior to arrival: Oxygen administered. via CPAP or BiPAP. 08:59 Method Of Arrival: EMS: [facility] bp 08:59 Acuity: CHRISTIANO 2 bp Triage Assessment: 09:00 General: Appears distressed, uncomfortable, obese, Behavior is cooperative, appropriate bp for age, anxious. Pain: Denies pain. EENT: No deficits noted. Neuro: No deficits noted. Cardiovascular: Rhythm is sinus rhythm. Respiratory: Reports shortness of breath Airway is patent Respiratory effort is even, labored, Respiratory pattern is tachypnea Patient placed on BiPAP: Inspiratory Pressure: 12 Expiratory (EPAP) Pressure: 6 FiO2%: 30 Respiratory Rate: 14. GI: No signs and/or symptoms were reported involving the gastrointestinal system. : No signs and/or symptoms were reported regarding the genitourinary system. Derm: No deficits noted. Musculoskeletal: No deficits noted. Historical: - Allergies: 10:07 No Known Allergies; bp - Home Meds: 10:43 metoprolol tartrate 25 mg Oral tab 0.5 tab 2 times per day [Active]; furosemide 40 mg bp Oral tab 1 tab once daily [Active]; atorvastatin 40 mg oral tab 1 tab once daily [Active]; lisinopril 20 mg Oral tab 2 tabs once daily [Active]; Eliquis 5 mg oral tab 1 tab 2 times per day [Active]; potassium chloride 10 mEq Oral TbER 2 tabs once daily [Active]; aspirin 81 mg Oral chew 1 tab once daily [Active]; famotidine 20 mg Oral tab 1 tab once daily [Active]; hydralazine 25 mg Oral tab 1 tab as needed [Active]; allopurinol 300 mg Oral tab 1 tab once daily [Active]; albuterol sulfate 2.5 mg /3 mL (0.083 %) Inhl nebu 3 mL 3 times per day [Active]; prednisone 10 mg Oral tab once daily [Active]; Daliresp 500 mcg oral tab 1 tab once daily [Active]; zolpidem 10 mg Oral tab 1 tab once daily [Active]; - PMHx: 10:07 Atrial Fib; Hypertension; CHF; bp - Immunization history:: Adult Immunizations up to date. - Social history:: Smoking status: unknown. Screenin:02 Abuse screen: Denies threats or abuse. Denies injuries from another. Nutritional bp screening: No deficits noted. Tuberculosis screening: No symptoms or risk factors identified. Fall Risk None identified. Assessment: 09:02 General: SEE TRIAGE NOTE. bp 10:06 Reassessment: ALL CURRENT ORDERS COMPLETED, RESULTS PENDING. bp 10:45 Reassessment: PT SEEN BY HOSPITALIST. bp 11:28 Reassessment: FAMILY AT B/S, REQUESTING HOME HEALTH FOR D/C. bp 12:30 Reassessment: ADMIT IN PROCESS, VS STABLE ON MONITOR. bp 13:36 Reassessment: ADMIT COMPLETE, BED ASSIGNED, REPORT TO CARIE AGUIRRE. bp Vital Signs: 08:59 BP 152 / 54; Pulse 91; Resp 20; Temp 98; Pulse Ox 100% ; bp 09:37 BP 119 / 101; Pulse 87; Resp 23; Pulse Ox 100% ; bp 10:07 BP 145 / 101; Pulse 86; Resp 20; Pulse Ox 100% ; bp 10:44 BP 125 / 86; Pulse 84; Resp 16; Pulse Ox 97% ; bp ED Course: 08:53 Patient arrived in ED. kb 08:53 [facility] kb 08:53 Scott Post MD is Attending Physician. kb 08:59 Emil Michel, TIMOTHY is Primary Nurse. bp 09:00 Triage completed. bp 09:00 Maintain EMS IV. Dressing intact. Good blood return noted. Site clean \T\ dry. Gauge \T\ bp site: 20 G R AC. 09:02 Arm band placed on. bp 09:02 Patient has correct armband on for positive identification. Bed in low position. Call bp light in reach. Side rails up X2. hall monitor on. Pulse ox on. NIBP on. 09:37 XRAY Chest (1 view) Sent. bp 09:40 Notified Nurse Practitioner and/or Physician Reroller Hand of a critical lab result(s), 7.6 ss HGB. 09:45 XRAY Chest (1 view) In Process Unspecified. EDMS 10:42 Taco Rivas MD is Hospitalizing Provider. kb 13:35 No provider procedures requiring assistance completed. Patient admitted, IV remains in bp place. Administered Medications: 09:10 Drug: Lasix 40 mg Route: IVP; Site: right antecubital; bp 11:01 Follow up: Response: No adverse reaction bp Output: 09:38 Urine: 300ml (Voided); Total: 300ml. bp 10:08 Urine: 250ml; Total: 550ml. bp 10:45 Urine: 500ml (Voided); Total: 1050ml. bp Outcome: 10:43 Decision to Hospitalize by Provider. kb 13:36 Admitted to Med/surg accompanied by tech, via stretcher, room 224, with oxygen, with bp chart, Report called to CARIE AGUIRRE 13:36 Condition: stable 13:36 Instructed on the need for admit. 14:08 Patient left the ED. [id number] Signatures: Dispatcher [employer] EDMS Layne James, DONI COWART-Miladis Chin RN RN Eric Ordoñez RN RN jEmil Molina, RN RN bp
--- NOTE | 2020-02-04 10:44 | EDPHYS ---
Physician Documentation [facility] Name: Caesar Gagnon Age: 79 yrs Sex: Male : 1940 Arrival Date: 02/04/2020 Time: 08:53 Bed 19 Private MD: ED Physician Scott Post HPI: 02/03 08:58 This 79 yrs old Male presents to ER via Unassigned with complaints of kb shortness of breath. 08:58 The patient has shortness of breath at rest, and the patient has a history of CHF. kb Onset: The symptoms/episode began/occurred last night. Duration: The symptoms are continuous. The patient's shortness of breath is aggravated by exertion, supine position. Associated signs and symptoms: The patient has no apparent associated signs or symptoms. Severity of symptoms: At their worst the symptoms were moderate in the emergency department the symptoms are unchanged. The patient has experienced similar episodes in the past. The patient has not recently seen a physician. Historical: - Allergies: 10:07 No Known Allergies; bp - Home Meds: 10:43 metoprolol tartrate 25 mg Oral tab 0.5 tab 2 times per day [Active]; furosemide 40 mg bp Oral tab 1 tab once daily [Active]; atorvastatin 40 mg oral tab 1 tab once daily [Active]; lisinopril 20 mg Oral tab 2 tabs once daily [Active]; Eliquis 5 mg oral tab 1 tab 2 times per day [Active]; potassium chloride 10 mEq Oral TbER 2 tabs once daily [Active]; aspirin 81 mg Oral chew 1 tab once daily [Active]; famotidine 20 mg Oral tab 1 tab once daily [Active]; hydralazine 25 mg Oral tab 1 tab as needed [Active]; allopurinol 300 mg Oral tab 1 tab once daily [Active]; albuterol sulfate 2.5 mg /3 mL (0.083 %) Inhl nebu 3 mL 3 times per day [Active]; prednisone 10 mg Oral tab once daily [Active]; Daliresp 500 mcg oral tab 1 tab once daily [Active]; zolpidem 10 mg Oral tab 1 tab once daily [Active]; - PMHx: 10:07 Atrial Fib; Hypertension; CHF; bp - Immunization history:: Adult Immunizations up to date. - Social history:: Smoking status: unknown. ROS: 08:55 Constitutional: Negative for fever, chills, and weight loss, Neck: Negative for injury, kb pain, and swelling, Cardiovascular: Negative for chest pain, palpitations, and edema, Abdomen/GI: Negative for abdominal pain, nausea, vomiting, diarrhea, and constipation, Back: Negative for injury and pain, MS/Extremity: Negative for injury and deformity, Skin: Negative for injury, rash, and discoloration, Neuro: Negative for headache, weakness, numbness, tingling, and seizure. 08:55 Respiratory: Positive for dyspnea on exertion, orthopnea, shortness of breath. Exam: 08:55 Constitutional: This is a well developed, well nourished patient who is awake, alert, kb and in no acute distress. Head/Face: Normocephalic, atraumatic. Chest/axilla: Normal chest wall appearance and motion. Nontender with no deformity. No lesions are appreciated. Abdomen/GI: Soft, non-tender, with normal bowel sounds. No distension or tympany. No guarding or rebound. No evidence of tenderness throughout. Back: No spinal tenderness. No costovertebral tenderness. Full range of motion. Skin: Warm, dry with normal turgor. Normal color with no rashes, no lesions, and no evidence of cellulitis. MS/ Extremity: Pulses equal, no cyanosis. Neurovascular intact. Full, normal range of motion. Neuro: Awake and alert, GCS 15, oriented to person, place, time, and situation. Cranial nerves II-XII grossly intact. Motor strength 5/5 in all extremities. Sensory grossly intact. Cerebellar exam normal. Normal gait. 08:55 Respiratory: moderate respiratory distress is noted, Respirations: labored breathing, that is moderate, tachypnea, 28 Breath sounds: rhonchi, that are moderate, are located in both bases. 09:04 Cardiovascular: Rate: normal, Rhythm: irregularly irregular, Pulses: no pulse deficits kb are appreciated, Edema: pedal edema, that is moderate, 2+. 09:23 ECG was reviewed by the Attending Physician. kb 10:38 Abdomen/GI: Rectal exam: is unremarkable, rectal tone normal, Stool: brown, guaiac kb positive, trace positive. Vital Signs: 08:59 BP 152 / 54; Pulse 91; Resp 20; Temp 98; Pulse Ox 100% ; bp 09:37 BP 119 / 101; Pulse 87; Resp 23; Pulse Ox 100% ; bp 10:07 BP 145 / 101; Pulse 86; Resp 20; Pulse Ox 100% ; bp 10:44 BP 125 / 86; Pulse 84; Resp 16; Pulse Ox 97% ; bp MDM: 08:54 Patient medically screened. kb 08:55 Data reviewed: vital signs, nurses notes. Data interpreted: Pulse oximetry: on 2L(s) kb per nasal canula, home O2 is 95 %. Interpretation: normal. 09:22 ED course: Pt reports he is breathing easier now, "not great, but better.". kb 10:42 Counseling: I had a detailed discussion with the patient and/or guardian regarding: the kb historical points, exam findings, and any diagnostic results supporting the discharge/admit diagnosis, lab results, radiology results, the need for further work-up and treatment in the hospital. Physician consultation: Taco Rivas MD was contacted at 10:42, regarding admission, to the telemetry unit. patient's condition, in the emergency department to see patient at 10:42. 02/03 08:54 Order name: Basic Metabolic Panel; Complete Time: 10:03 kb 02/03 08:54 Order name: CBC with Diff; Complete Time: 10:10 kb 02/03 08:54 Order name: LFT's; Complete Time: 10:03 kb 02/03 08:54 Order name: Magnesium; Complete Time: 10:03 kb 02/03 08:54 Order name: NT PRO-BNP; Complete Time: 10:03 kb 02/03 08:54 Order name: PT-INR; Complete Time: 09:39 kb 02/03 08:54 Order name: Troponin (emerg Dept Use Only); Complete Time: 10:03 kb 02/03 09:41 Order name: CBC Smear Scan; Complete Time: 10:10 EDMS 02/03 10:38 Order name: [place]; Complete Time: 11:06 kb 02/03 12:29 Order name: CBC with Automated Diff EDMS 02/03 12:29 Order name: CBC with Automated Diff EDMS 02/03 12:29 Order name: Comprehensive Metabolic Panel EDMS 02/03 12:29 Order name: Comprehensive Metabolic Panel EDMS 02/03 12:29 Order name: Magnesium EDMS 02/03 12:29 Order name: Magnesium EDMS 02/03 12:29 Order name: NT PRO-BNP EDMS 02/03 12:29 Order name: NT PRO-BNP EDMS 02/03 12:29 Order name: Phosphorus EDMS 02/03 12:29 Order name: Phosphorus EDMS 02/03 12:29 Order name: Protime (+INR) EDMS 02/03 12:29 Order name: Protime (+INR) EDMS 02/03 12:30 Order name: PTT, Activated Partial Thromb EDMS 02/03 12:30 Order name: PTT, Activated Partial Thromb EDMS 02/03 12:30 Order name: Troponin I EDMS 02/03 12:30 Order name: Troponin I EDMS 02/03 12:30 Order name: Troponin I EDMS 02/03 12:30 Order name: Cortisol EDMS 02/03 12:30 Order name: Folic Acid, (Folate) EDMS 02/03 12:31 Order name: Iron EDMS 02/03 12:31 Order name: Retic Count EDMS 02/03 08:54 Order name: XRAY Chest (1 view); Complete Time: 10:31 kb 02/03 08:54 Order name: Cardiac monitoring; Complete Time: 09:03 kb 02/03 08:54 Order name: EKG - Nurse/Tech; Complete Time: 09:37 kb 02/03 08:54 Order name: IV Saline Lock; Complete Time: 09:37 kb 02/03 08:54 Order name: Labs collected and sent; Complete Time: 09:37 kb 02/03 08:54 Order name: O2 Per Protocol; Complete Time: 09:04 kb 02/03 08:54 Order name: O2 Sat Monitoring; Complete Time: 09:03 kb 02/03 08:54 Order name: BIPAP kb 02/03 12:29 Order name: CONS Physician Consult EDMS 02/03 12:29 Order name: Heart Healthy EDMS 02/03 12:31 Order name: T4 Free EDMS 02/03 12:31 Order name: Thyroid Stimulating Hormone EDMS 02/03 12:31 Order name: Vitamin B12 Level EDMS 02/03 12:31 Order name: CBC with Automated Diff EDMS 02/03 12:31 Order name: EKG Electrocardiogram EDMS 02/03 12:33 Order name: Echo with Doppler EDMS EC: Rate is 82 beats/min. Rhythm is irregularly irregular. QRS [place] is Normal. QRS interval kb is normal at 82 msec. QT interval is normal at 368 msec. Clinical impression: Atrial Fibrillation. Interpreted by me. Reviewed by me. Administered Medications: 09:10 Drug: Lasix 40 mg Route: IVP; Site: right antecubital; bp 11:01 Follow up: Response: No adverse reaction bp Disposition: 14:42 Co-signature as Attending Physician, Scott Post MD I agree with the assessment and [facility] plan of care. Disposition: 02/04/20 10:43 Hospitalization ordered by Taco Rivas for Observation. Preliminary diagnosis are Unspecified combined systolic (congestive) and diastolic (congestive) heart failure, Anemia, unspecified. - Bed requested for Telemetry/MedSurg (observation). - Status is Observation. jd3 - Condition is Stable. - Problem is an acute exacerbation. - Symptoms have improved. Signatures: Dispatcher [employer] EDMS Layne James FNP-C FNP-Kala Rios RN RN kl Rittger, Kevin, MD MD kdr Davies, Jonathon, RN RN jEmil Molina RN RN bp Corrections: (The following items were deleted from the chart) 09:04 08:55 Constitutional: This is a well developed, well nourished patient who is awake, kb alert, and in no acute distress. Head/Face: Normocephalic, atraumatic. Chest/axilla: Normal chest wall appearance and motion. Nontender with no deformity. No lesions are appreciated. Cardiovascular: Regular rate and rhythm with a normal S1 and S2. No gallops, murmurs, or rubs. Normal PMI, no JVD. No pulse deficits. Abdomen/GI: Soft, non-tender, with normal bowel sounds. No distension or tympany. No guarding or rebound. No evidence of tenderness throughout. Back: No spinal tenderness. No costovertebral tenderness. Full range of motion. Skin: Warm, dry with normal turgor. Normal color with no rashes, no lesions, and no evidence of cellulitis. MS/ Extremity: Pulses equal, no cyanosis. Neurovascular intact. Full, normal range of motion. Neuro: Awake and alert, GCS 15, oriented to person, place, time, and situation. Cranial nerves II-XII grossly intact. Motor strength 5/5 in all extremities. Sensory grossly intact. Cerebellar exam normal. Normal gait. kb 12:33 12:29 Echo with Doppler ordered. EDMS EDMS 12:39 10:43 Hospitalization Ordered by Taco Rivas MD for Observation. Preliminary kl diagnosis is Unspecified combined systolic (congestive) and diastolic (congestive) heart failure; Anemia, unspecified. Bed requested for Telemetry/MedSurg (observation). Status is Observation. Condition is Stable. Problem is an acute exacerbation. Symptoms have improved. kb 14:08 12:39 02/04/2020 10:43 Hospitalization Ordered by Taco Rivas MD for Observation. jd3 Preliminary diagnosis is Unspecified combined systolic (congestive) and diastolic (congestive) heart failure; Anemia, unspecified. Bed requested for Telemetry/MedSurg (observation). Status is Observation. Condition is Stable. Problem is an acute exacerbation. Symptoms have improved. kl
[2020-02-04] MEDS ORDERED: ONDANSETRON 4 MG/2 ML VIAL IV PRN (12:25)
[2020-02-04 14:46] VITALS: BMI 38.5
[2020-02-04] MEDS ORDERED: PNEUMOCOCCAL VACCINE 0.5 ML IMVAC ONE (15:00)
[2020-02-04] MEDS: FUROSEMIDE 40 MG/4 ML VIAL IV SCH ×2 (15:55→16:47)
[2020-02-04 16:03] LABS: Absolute Lymphocytes (CBC) 1.1 K/uL (0.7-4.9); Basophils % 0.3 % (0-1.3); Hematocrit 24.4 % (39.6-49.0); MPV 7.1 fL (7.6-11.3); RBC Red Blood Cell Count 3.26 M/uL (4.33-5.43)
[2020-02-04] MEDS ORDERED: ZOLPIDEM TARTRATE 10 MG TABLET PO PRN (16:32)
[2020-02-04] MEDS ORDERED: HYDRALAZINE HCL 25 MG TABLET PO PRN (17:00)
[2020-02-04] MEDS ORDERED: MORPHINE 4 MG/ML SYR IV PRN (18:29)
[2020-02-04] MEDS: ATORVASTATIN 40 MG TAB PO SCH (20:58)
[2020-02-05] MEDS: FUROSEMIDE 40 MG/4 ML VIAL IV SCH ×4 (00:42→17:00)
[2020-02-05] MEDS: ACETAMINOPHEN 500 MG TAB PO PRN ×2 (05:16→16:08)
[2020-02-05 06:19] LABS: Absolute Lymphocytes (CBC) 1.1 K/uL (0.7-4.9); Basophils % 0.7 % (0-1.3); Hematocrit 24.9 % (39.6-49.0); Lymphocytes % 9.3 % (15.3-44.8); MPV 7.3 fL (7.6-11.3); RBC Red Blood Cell Count 3.34 M/uL (4.33-5.43)
[2020-02-05 06:20] LABS: RBC Red Blood Cell Count 3.31 M/uL (4.33-5.43)
[2020-02-05 06:35] LABS: Protime INR 1.33
[2020-02-05 06:46] LABS: Albumin 3.3 g/dL (3.4-5.0); Bilirubin Total 0.8 mg/dL (0.2-1.0); Magnesium 2.1 mg/dL (1.8-2.4); Phosphorus 2.8 mg/dL (2.5-4.9); Protein, Total 6.4 g/dL (6.4-8.2)
[2020-02-05 07:07] LABS: Folic Acid, (Folate) 14.9 ng/mL (3.1-17.5); Thyroid Stimulating Hormone 1.73 uIU/mL (0.360-3.740)
[2020-02-05] MEDS: POTASSIUM CL SA 10 MEQ TAB PO SCH (08:37)
[2020-02-05] MEDS: ASPIRIN EC 81 MG TAB PO SCH (08:37)
[2020-02-05] MEDS: HOME MED 1 EA UNK (Fluticasone/Vilanterol [Breo Ellipta 200-25 Mcg Inh] 1 PUFF) IH SCH (08:38)
[2020-02-05] MEDS: ENOXAPARIN 40 MG/0.4 ML SQ SCH (08:38)
[2020-02-05] MEDS: CLOPIDOGREL 75 MG TABLET PO SCH (08:38)
[2020-02-05] MEDS: allopurinoL 300 MG TAB PO SCH (08:38)
[2020-02-05] MEDS: FAMOTIDINE 20 MG TAB PO SCH (08:38)
--- NOTE | 2020-02-05 08:46 | EKG ---
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
[2020-02-05] MEDS ORDERED: POTASSIUM CHLORIDE PO SCH (09:00)
--- NOTE | 2020-02-05 09:45 | CON ---
Date of Consultation: 02/05/2020 Reason For Consultation: Congestive heart failure. History Of Present Illness: Mr. Gagnon is a 79-year-old white male. He is very well known to me fro m office visits. He has a history of paroxysmal atrial fibrillation, chronic diastolic congestive he art failure, coronary artery disease, hypertension, dyslipidemia, and gout. He has COPD for which he wears home oxygen. He has been noncompliant with his medications and not compliant with his diet an d comes in with anasarca. Denied chest pain. No nausea, vomiting, or diaphoresis. Has had some PND , orthopnea, and pedal edema. He denied any syncope, but has had some palpitations. At one point in my office, I had to decrease his metoprolol to half a dose twice a day because of the fatigue. He d enied any fever or chills or cough. Past Medical History: As stated above. Allergies: NONE. Review of Systems: Negative. Social History: Negative. Family History: Noncontributory. Medications: His medication at home includes Eliquis, Prinivil, prednisone, inhalers, aspirin, Lipit or, allopurinol, Lasix, potassium, hydralazine, and metoprolol. Physical Examination: General: He weighed 300 pounds. He was in no acute distress. Vital Signs: Stable. He is in atrial fibrillation with controlled rate. HEENT: Negative. Neck: Supple without any bruit, lymphadenopathy, JVD, or thyromegaly. Chest: Clear to auscultation and percussion. Cardiac: Revealed a regular rhythm and rate without any murmurs, gallops, or rubs. Abdomen: Obese but benign. Extremities: Revealed 3+ edema all the way up to the thigh and . Skin: Dry and intact. Neurologic: He was nonfocal. Pulses are present distally bilaterally. Diagnostic Data: His creatinine is 1.14, hemoglobin 7.16. He is in atrial fibrillation. Chest x-ra y is normal. Echocardiogram in March of 2019 showed diastolic dysfunction. In December of 2019, he had an episode of COPD exacerbation and pneumonia. Impression And Plan: 1.Acute on chronic diastolic congestive heart failure exacerbation. Echocardiogram pending. The pa yessica is being diuresed. 2.Severe anemia. He used to be on iron infusions in the past. Has had colonoscopies and endoscopie s by Dr. Quiroz. I suggest he get back on iron. Gets on Nexium or Protonix and follow up with Dr. Daija marks in the near future. 3.Recent pneumonia. 4.Chronic obstructive pulmonary disease exacerbation, recently, now resolved. 5.Atrial fibrillation, on metoprolol and Eliquis. 6.Coronary artery disease, stable. 7.Hypertension, well-controlled. 8.Dyslipidemia, well-controlled. 9.Gout. As stated earlier I would get an echo to diurese him. I counseled him on diet restrictions, salt res triction, and fluid restriction. Follow up with Dr. Quiroz in the near future. He can go home wheneve r it is okay with admitting physician. He wants to have a BiPAP at home if possible and he will disc uss that with Dr. Borges. I will continue to follow him. I am comfortable with him going home thi s evening. MAVERICK/RIA Voice ID: [id number] Report ID: [id number]
[2020-02-05] MEDS: ALBUTEROL 2.5 MG/3 ML NEB SOL IH PRN ×2 (10:20→21:50)
--- NOTE | 2020-02-05 14:34 | P.HP ---
Certification for Inpatient Patient admitted to: Inpatient With expected LOS: >2 Midnights Patient will require the following post-hospital care: None Practitioner: I am a practitioner with admitting privileges, knowledge of patient current condition, hospital course, and medical plan of care. Services: Services provided to patient in accordance with Admission requirements found in Title 42 Section 412.3 of the Code of Federal Regulations Patient History Date of Service: 02/04/20 Reason for admission: ANASARCA; ACUTE CHF EXACERBATION History of Present Illness: Patient is a 79-year-old gentleman who came to the hospital with difficulty breathing. Patient had diffuse anasarca and chest x-ray revealed pulmonary edema. Patient was started on BiPAP for support. Patient was given IV Lasix and he is clinically feeling somewhat better. Will continue on BiPAP support and slowly try to wean him off. He has pitting edema to both of the lower extre mities. Patient has been on Lasix at home. Will continue with diuresing. Cardiology consultation as well. Patient does follow with local Pulmonary physician for COPD. If his respiratory status not improving then will also get pulmonary consultation. Allergies No Known Drug Allergies Allergy (Verified 11/24/15 11:48) Unknown Home Medications: Atorvastatin Calcium [Lipitor] 40 mg PO BEDTIME 07/26/11 Furosemide [Lasix] 40 mg PO DAILY 07/26/11 Albuterol Sulfate [Albuterol Sulfate 0.083% Neb Soln] 2.5 mg IH Q6HP PRN #60 ml 07/26/14 Apixaban [Eliquis] 1 tab PO BID 10/01/15 lisinopriL [Prinivil*] 20 mg PO BID 11/24/15 Aspirin [Rudyard Aspirin EC] 1 tab PO DAILY 11/06/16 Famotidine [Pepcid*] 1 tab PO DAILY 11/06/16 Potassium Chloride [Micro-K] 2 cap PO DAILY 11/06/16 Allopurinol 300 mg PO DAILY 04/09/19 Fluticasone/Vilanterol [Breo Ellipta 200-25 Mcg INH] 1 puff IH DAILY 04/09/19 Zolpidem Tartrate [Ambien*] 10 mg PO BEDTIME PRN 04/09/19 predniSONE [Deltasone*] 10 mg PO DAILY PRN 04/09/19 Hydralazine [Apresoline*] 1 tab PO PRN 08/04/20 Apixaban [Eliquis] 5 mg PO BID 02/05/20 Fluticasone/Umeclidin/Vilanter [Trelegy Ellipta 100-62.5-25] 1 puff PO DAILY 02/05/20 Lisinopril [Zestril] 20 mg PO BID 02/05/20 Metoprolol Succinate [Toprol Xl*] 12.5 mg PO BID 02/05/20 - Past Medical/Surgical History Has patient received pneumonia vaccine in the past: No Diabetic: No -: COPD -: HTN -: SLEEP APNEA -: AFIB -: CAD -: [place] -: CELLULITIS -: CVA -: CARTILIDGE REPAIR -: BOWEL SURGERY -: CARDIAC STENTS -: TONSILLECTOMY Psychosocial/ Personal History: Patient lives at home with his - Family History Father Notes: old age - Social History Smoking Status: Former smoker Alcohol use: No CD- Drugs: Yes Caffeine use: Yes Place of Residence: Home Review of Systems 10-point ROS is otherwise unremarkable Physical Examination - Vital Signs Temperature: 97.9 F Blood Pressure: 130/75 Pulse: 116 Respirations: 19 Pulse Ox (%): 90 - Physical Exam General: Alert, In no apparent distress, Oriented x3 HEENT: Atraumatic, Normocephalic Neck: Supple, 2+ carotid pulse no bruit, No Thyromegaly, JVD distended Respiratory: Crackles/rales, Expiratory wheezes Cardiovascular: Regular rate/rhythm, Normal S1 S2, Systolic murmur Gastrointestinal: Normal bowel sounds, Soft and benign, Non-distended Musculoskeletal: No clubbing, Swelling Integumentary: Other (Patient was significant anasarca) Neurological: Normal gait, Normal strength at 5/5 x4 extr, Normal tone, Sensation intact, Cranial nerves 3-12 intact - Studies Microbiology Data (last 24 hrs): 02/04/20 10:38 Stool Occult Blood - Final Assessment & Plan - Problems (Diagnosis) (1) Anasarca Current Visit: Yes Status: Acute (2) Acute CHF Current Visit: Yes Status: Acute (3) A-fib Onset Date: 11/16/15 Current Visit: No Status: Acute (4) Anemia due to acute blood loss Onset Date: 11/16/15 Current Visit: No Status: Acute (5) COPD exacerbation Onset Date: 11/16/15 Current Visit: No Status: Chronic (6) Hypertension Current Visit: No Status: Chronic - Plan 1. Echocardiogram 2. IV diuretics 3. H&H is stable so will hold blood transfusion until patient is sufficiently diuresed. Then will plan to give 2 units of packed red blood cells 4. Cardiology consultation 5. Aggressive diuresis 6. Strict I's and O's 7. Repeat CXR 8. Daily weights 9. Continue cardiac meds 10. Hold Eliquis because of the low hemoglobin make sure there is no bleeding 11. Continue metoprolol 12. Education regarding diet and treatment of congestive heart failure 13. Pulmonary consultation if respiratory status is not improving 14. GI and DVT prophylax Discharge Plan: Home Plan to discharge in: Greater than 2 days - Advance Directives Does patient have a Living Will: Yes Does patient have a Durable POA for Healthcare: Yes - Code Status/Comfort Care Code Status Assessed: Yes Code Status: Full Code Critical Care: No Time Spent Managing PTS Care (In Minutes): 45
--- NOTE | 2020-02-05 14:41 | P.PN ---
Subjective Date of Service: 02/05/20 Patient continues to slowly improve. Still short of breath also planning with cramping of the hands and feet. Will transfuse 2 units of packed red blood cells. Iron level and B12 level are low as well. Supplement these. Pulmonary consultation Review of Systems 10-point ROS is otherwise unremarkable Physical Examination - Vital Signs Temperature: 97.9 F Blood Pressure: 130/75 Pulse: 116 Respirations: 19 Pulse Ox (%): 90 - Physical Exam General: Alert, In no apparent distress, Oriented x3, Obese Respiratory: Crackles/rales (Minimal) Cardiovascular: Regular rate/rhythm, Normal S1 S2, No murmurs Gastrointestinal: Normal bowel sounds, Soft and benign, Non-distended, No tenderness Musculoskeletal: Swelling (Swelling significantly improved) Neurological: Normal strength at 5/5 x4 extr, Sensation intact, Cranial nerves 3-12 intact Lymphatics: No axilla or inguinal lymphadenopathy - Studies Microbiology Data (last 24 hrs): 02/04/20 10:38 Stool Occult Blood - Final Medications List Reviewed: Yes Assessment & Plan - Problems (Diagnosis) (1) Anasarca Current Visit: Yes Status: Acute (2) Acute CHF Current Visit: Yes Status: Acute (3) A-fib Onset Date: 11/16/15 Current Visit: No Status: Acute (4) Anemia due to acute blood loss Onset Date: 11/16/15 Current Visit: No Status: Acute (5) COPD exacerbation Onset Date: 11/16/15 Current Visit: No Status: Chronic (6) Hypertension Current Visit: No Status: Chronic - Plan 1. Echocardiogram reviewed 2. Transfuse 2 units of packed red blood cells 3. Monitor H&H 4. Cardiology consultation appreciated 5. Aggressive diuresis 6. Strict I's and O's 7. Repeat CXR 8. Daily weights 9. Continue cardiac meds 10. Hold Eliquis because of the low hemoglobin make sure there is no bleeding 11. Continue metoprolol 12. Education regarding diet and treatment of congestive heart failure 13. Pulmonary consultation if respiratory status is not improving 14. GI and DVT prophylax Discharge Plan: Home Plan to discharge in: Greater than 2 days - Advance Directives Does patient have a Living Will: Yes Does patient have a Durable POA for Healthcare: Yes - Code Status/Comfort Care Code Status: Full Code Critical Care: No Time Spent Managing PTS Care (In Minutes): 35
[2020-02-05] MEDS ORDERED: CYANOCOBALAMIN 1000MCG/ML INJ IM ONE (15:00)
[2020-02-05 15:36] LABS: Hematocrit 24.9 % (39.6-49.0)
[2020-02-05] MEDS: SOD FERRIC GLUC COMPLX/SUCROSE 125 MG in NA CHLORIDE 0.9% 100 ML IV SCH (16:08)
[2020-02-05] MEDS ORDERED: NA CHLORIDE 0.9% 250 ML ONE (16:50)
[2020-02-05] MEDS: ATORVASTATIN 40 MG TAB PO SCH (20:38)
[2020-02-05] MEDS: METOPROLOL XL 25 MG TAB PO SCH (20:38)
[2020-02-06] MEDS: FUROSEMIDE 40 MG/4 ML VIAL IV SCH ×3 (00:27→17:33)
[2020-02-06] MEDS: ACETAMINOPHEN 500 MG TAB PO PRN ×4 (00:27→20:51)
[2020-02-06] MEDS ORDERED: NA CHLORIDE 0.9% 250 ML ONE (03:34)
[2020-02-06] MEDS: HOME MED 1 EA UNK (Fluticasone/Vilanterol [Breo Ellipta 200-25 Mcg Inh] 1 PUFF) IH SCH (09:00)
[2020-02-06] MEDS: allopurinoL 300 MG TAB PO SCH (10:41)
[2020-02-06] MEDS: CLOPIDOGREL 75 MG TABLET PO SCH (10:41)
[2020-02-06] MEDS: ASPIRIN EC 81 MG TAB PO SCH (10:42)
[2020-02-06] MEDS: FAMOTIDINE 20 MG TAB PO SCH (10:42)
[2020-02-06] MEDS: POTASSIUM CL SA 10 MEQ TAB PO SCH (10:43)
[2020-02-06] MEDS: METOPROLOL XL 25 MG TAB PO SCH ×2 (10:43→20:38)
[2020-02-06] MEDS: ENOXAPARIN 40 MG/0.4 ML SQ SCH (10:45)
--- NOTE | 2020-02-06 11:46 | P.CNS ---
Date of Consult: 02/06/20 Reason for Consult: Shortness of breath Chief Complaint: Shortness of breath anemia History of Present Illness: Patient is 79 years of age he has been admitted with chronic progressive dyspnea for the past month as found to be anemic microcytic possible underlying blood loss patient is compliant with his therapy is also complaining of lower extremity edema history of severe COPD he is on BiPAP compliant with his medication patient was also on Eliquis and Plavix Allergies No Known Drug Allergies Allergy (Verified 11/24/15 11:48) Unknown Home Medications: Atorvastatin Calcium [Lipitor] 40 mg PO BEDTIME 07/26/11 Furosemide [Lasix] 40 mg PO DAILY 07/26/11 Albuterol Sulfate [Albuterol Sulfate 0.083% Neb Soln] 2.5 mg IH Q6HP PRN #60 ml 07/26/14 Apixaban [Eliquis] 1 tab PO BID 10/01/15 lisinopriL [Prinivil*] 20 mg PO BID 11/24/15 Aspirin [[place] Aspirin EC] 1 tab PO DAILY 11/06/16 Famotidine [Pepcid*] 1 tab PO DAILY 11/06/16 Potassium Chloride [Micro-K] 2 cap PO DAILY 11/06/16 Allopurinol 300 mg PO DAILY 04/09/19 Fluticasone/Vilanterol [Breo Ellipta 200-25 Mcg INH] 1 puff IH DAILY 04/09/19 Zolpidem Tartrate [Ambien*] 10 mg PO BEDTIME PRN 04/09/19 predniSONE [Deltasone*] 10 mg PO DAILY PRN 04/09/19 Hydralazine [Apresoline*] 1 tab PO PRN 12/16/19 Apixaban [Eliquis] 5 mg PO BID 02/05/20 Fluticasone/Umeclidin/Vilanter [Trelegy Ellipta 100-62.5-25] 1 puff PO DAILY 02/05/20 Lisinopril [Zestril] 20 mg PO BID 02/05/20 Metoprolol Succinate [Toprol Xl*] 12.5 mg PO BID 02/05/20 - Past Medical/Surgical History Diabetic: No -: COPD -: HTN -: SLEEP APNEA -: AFIB -: CAD -: MS -: CELLULITIS -: CVA -: CARTILIDGE REPAIR -: BOWEL SURGERY -: CARDIAC STENTS -: TONSILLECTOMY Psychosocial/ Personal History: Patient lives at home with his - Family History Father Notes: old age - Social History Smoking Status: Unknown if ever smoked Alcohol use: No CD- Drugs: Yes Caffeine use: Yes Place of Residence: Home Review of Systems General: Weakness Respiratory: Shortness of Breath Cardiovascular: Edema Physical Examination Temp Pulse Resp BP Pulse Ox 97.1 F 79 23 H 129/70 95 02/06/20 08:00 02/06/20 10:43 02/06/20 08:00 02/06/20 10:43 02/06/20 08:00 General: Alert, In no apparent distress, Oriented x3 Respiratory: Crackles/rales, Expiratory wheezes Cardiovascular: Edema, Irregular heart rate/rhythm Gastrointestinal: Normal bowel sounds, Soft and benign - Problems (1) Shortness of breath Current Visit: Yes Status: Acute Plan: Patient is 79 years of age well known to me admitted with progressive shortness of breath probably has underlying diastolic dysfunction also has severe COPD is on home BiPAP in addition to sleep apnea Consul GI for source of bleeding agree withholding Eliquis guaiac stools sees had I and transfusion with blood transfusions at spironolactone echocardiogram is pending I have also added some steroids chemistries reviewed chest x-rays clear no evidence of volume overload on the chest x-ray oxygenation satisfactory he is 93% on 3 L I have also added spironolactone presumed underlying diastolic dysfunction
[2020-02-06] MEDS: METHYLPREDNISOLONE 40 MG INJ IV SCH ×2 (12:56→20:38)
[2020-02-06] MEDS: SPIRONOLACTONE 25 MG TABLET PO SCH ×2 (12:56→20:40)
[2020-02-06] MEDS: ALBUTEROL 2.5 MG/3 ML NEB SOL IH PRN (13:15)
[2020-02-06 13:47] LABS: Absolute Lymphocytes (CBC) 0.8 K/uL (0.7-4.9); Basophils % 0.9 % (0-1.3); Hematocrit 26.6 % (39.6-49.0); Lymphocytes % 6.1 % (15.3-44.8); MPV 7.2 fL (7.6-11.3); RBC Red Blood Cell Count 3.48 M/uL (4.33-5.43)
[2020-02-06 14:02] LABS: Albumin 3.1 g/dL (3.4-5.0); Bilirubin Total 1.1 mg/dL (0.2-1.0); Phosphorus 2.7 mg/dL (2.5-4.9); Potassium 3.9 mmol/L (3.5-5.1); Protein, Total 6.1 g/dL (6.4-8.2)
[2020-02-06] MEDS: SOD FERRIC GLUC COMPLX/SUCROSE 125 MG in NA CHLORIDE 0.9% 100 ML IV SCH (14:56)
[2020-02-06] MEDS: ATORVASTATIN 40 MG TAB PO SCH (20:41)
[2020-02-06] MEDS: MAGNESIUM CITRATE 300 ML BOT PO SCH (20:52)
[2020-02-07] MEDS: FUROSEMIDE 40 MG/4 ML VIAL IV SCH ×2 (00:59→09:48)
[2020-02-07] MEDS: HOME MED 1 EA UNK (Fluticasone/Vilanterol [Breo Ellipta 200-25 Mcg Inh] 1 PUFF) IH SCH (09:00)
[2020-02-07] MEDS: METOPROLOL XL 25 MG TAB PO SCH ×2 (09:49→20:36)
[2020-02-07] MEDS: POTASSIUM CL SA 10 MEQ TAB PO SCH (09:49)
[2020-02-07] MEDS: ASPIRIN EC 81 MG TAB PO SCH (09:49)
[2020-02-07] MEDS: FAMOTIDINE 20 MG TAB PO SCH (09:49)
[2020-02-07] MEDS: ENOXAPARIN 40 MG/0.4 ML SQ SCH (09:50)
[2020-02-07] MEDS: allopurinoL 300 MG TAB PO SCH (09:50)
[2020-02-07] MEDS: SPIRONOLACTONE 25 MG TABLET PO SCH ×2 (09:50→20:35)
[2020-02-07] MEDS: SOD FERRIC GLUC COMPLX/SUCROSE 125 MG in NA CHLORIDE 0.9% 100 ML IV SCH (09:54)
[2020-02-07] MEDS: CLOPIDOGREL 75 MG TABLET PO SCH (09:54)
[2020-02-07] MEDS: METHYLPREDNISOLONE 40 MG INJ IV SCH (09:54)
[2020-02-07] MEDS: ACETAMINOPHEN 500 MG TAB PO PRN (10:39)
--- NOTE | 2020-02-07 12:03 | P.PN ---
Subjective Date of Service: 02/07/20 Chief Complaint: SOB Doing better .StillSOB. Denies active bleeding Review of Systems General: Weakness Respiratory: Shortness of Breath Physical Examination - Vital Signs Temperature: 97.5 F Blood Pressure: 159/88 Pulse: 87 Respirations: 17 Pulse Ox (%): 94 - Physical Exam General: Alert, Oriented x3 Respiratory: Expiratory wheezes Cardiovascular: Edema - Studies Medications List Reviewed: Yes Assessment & Plan - Problems (Diagnosis) (1) Shortness of breath Current Visit: Yes Status: Acute Plan: Patient is 79 years of age well known to me admitted with progressive shortness of breath probably has underlying diastolic dysfunction also has severe COPD is on home BiPAP in addition to sleep apnea Consul GI for source of bleeding agree withholding Eliquis guaiac stools sees had I and transfusion with blood transfusions at spironolactone echocardiogram is pending I have also added some steroids chemistries reviewed chest x-rays clear no evidence of volume overload on the chest x-ray oxygenation satisfactory he is 93% on 3 L I have also added spironolactone presumed underlying diastolic dysfunction
[2020-02-07] MEDS: ALBUTEROL 2.5 MG/3 ML NEB SOL IH PRN ×2 (13:29→20:20)
[2020-02-07] MEDS: MAGNESIUM CITRATE 300 ML BOT PO SCH (20:00)
[2020-02-07] MEDS: FUROSEMIDE 20 MG TABLET PO SCH (20:34)
[2020-02-07] MEDS: predniSONE 10 MG TAB PO SCH (20:37)
[2020-02-07] MEDS: ATORVASTATIN 40 MG TAB PO SCH (20:37)
--- NOTE | 2020-02-07 22:13 | PN ---
Date of Progress Note: 02/06/2020 The patient states his breathing is somewhat better and this is confirmed by his O2 saturations. How ever, he still has dyspnea with minimal exertion. Peripheral edema has improved somewhat. He was se en by Cardiology, who felt that increasing diuresis via diuretic will make some significant differenc e in his situation and apparently he has skipped some doses strongly suggested that he sta y with the doses that have been prescribed. He was also seen by Pulmonology and has frequently requi red increasing his steroid dose. At this time, he is on significant steroid doses, significant diure sis. His mental status is somewhat confused for him. In view of this, even though he requests to go home, I feel he should remain in the hospital and monitor, he agreed after some discussion of the st atus. HR/MODL Voice ID: [id number] Report ID: [id number]
--- NOTE | 2020-02-07 22:34 | PN ---
Date of Progress Note: 02/07/2020 The patient continues to improve somewhat both clinically and lab lauren. He has received 2 units of b lood and hemoglobin is now approaching 10. His stool guaiac was positive, which was to similar situa tion a couple of years ago, at which time he underwent a GI workup, which basically showed no particu lar area . In any event, this will need to be repeated again. He has also some voiding pr oblems at present. He does have a significant hernia and he is supposed to see the surgeon this week , however, at the present status, I do not feel he is capable of handling anything surgical. As far as his doses of prednisone and Lasix, they will be modified during his hospital stay in attempt to ob tain a maximum dose as an outpatient. The other issue is his Eliquis for atrial fibrillation. Discu ssion with held at least temporarily and he has been placed on Plavix and aspirin and we w ill monitor his H and H until we can see that he is stable enough to tolerate perhaps a low dose of E liquis. Spironolactone 25 mg b.i.d. was also added to the regimen. Discussion of BiPAP was held. Cheryl farr does have CPAP and O2 at home which he uses on a regular basis. At the present time, we are holdin g the Eliquis. If his physical condition is stable by tomorrow on the decreased doses of steroids an d diuresis, he probably could be discharged. HR/MODL Voice ID: [id number] Report ID: [id number]
[2020-02-08] MEDS: POTASSIUM CL SA 10 MEQ TAB PO SCH (08:41)
[2020-02-08] MEDS: METOPROLOL XL 25 MG TAB PO SCH (08:41)
[2020-02-08] MEDS: FUROSEMIDE 20 MG TABLET PO SCH (08:41)
[2020-02-08] MEDS: ASPIRIN EC 81 MG TAB PO SCH (08:42)
[2020-02-08] MEDS: CLOPIDOGREL 75 MG TABLET PO SCH (08:42)
[2020-02-08] MEDS: FAMOTIDINE 20 MG TAB PO SCH (08:42)
[2020-02-08] MEDS: SPIRONOLACTONE 25 MG TABLET PO SCH (08:42)
[2020-02-08] MEDS: ENOXAPARIN 40 MG/0.4 ML SQ SCH (08:43)
[2020-02-08] MEDS: allopurinoL 300 MG TAB PO SCH (08:47)
[2020-02-08] MEDS: HOME MED 1 EA UNK (Fluticasone/Vilanterol [Breo Ellipta 200-25 Mcg Inh] 1 PUFF) IH SCH (08:48)
[2020-02-08] MEDS: predniSONE 10 MG TAB PO SCH (08:48)
[2020-02-08] MEDS: ALBUTEROL 2.5 MG/3 ML NEB SOL IH PRN (09:19)
[2020-02-08] MEDS: SOD FERRIC GLUC COMPLX/SUCROSE 125 MG in NA CHLORIDE 0.9% 100 ML IV SCH (10:29)
[2020-02-08] MEDS: ACETAMINOPHEN 500 MG TAB PO PRN (10:31)
[2020-02-08 10:32] VITALS: O2SAT 99
[2020-02-08 12:43] VITALS: BP 159/69; TEMP 97.9
--- NOTE | 2020-02-08 14:15 | PN ---
Date of Progress Note: 02/08/2020 The patient feels a lot better today both mentally and physically, and he is much more alert. This w as I think secondary to the high steroid doses that he was getting and required. At this stage, we w ill cut him back to the 10 mg b.i.d. and maintain his Lasix at 40 with the addition of the spironolac tone. His stool guaiac was positive suggesting convert to Plavix and aspirin rather than the Eliquis ; however, he was somewhat reluctant as he thinks he had a breakthrough CVA on the Plavix and was lawson d by somebody that he should switch to the Eliquis. However, as mentioned earlier, discussion with C ardiology and Pulmonology, it felt at least put it on hold temporarily to make sure that his H and H are stable. This will be repeated in 48 hours and make determination at that time. Also some questi on of Home Health and this will be evaluated as well as an outpatient and recurrence of some of the p eripheral ulcers for which he has been seen for [facility] and by home health. Discharged i n fair condition with obviously the progression of his COPD with an acute exacerbation, the primary f ocus at this time as well as the anemia and this too will have to be evaluated. It was couple of yea rs ago and GI workup top to bottom was negative and perhaps it was secondary to blood thinners as uri lawson. However, he was stable until this last episode. We will consider some iron infusions as an outpa tient as well. This is depending on the next few blood counts. HR/MODL Voice ID: [id number] Report ID: [id number]
--- NOTE | 2020-02-09 08:17 | ECHO ---
HEIGHT: 6 ft 2 in WEIGHT: 295 lb 4.8 oz DATE OF STUDY: 02/06/[address]: Taco Rivas MD 2-DIMENSIONAL: YES M.MODE: YES DOPPLER: YES COLOR FLOW: YES TDS: YES PORTABLE: DEFINITY: BUBBLE STUDY: DIAGNOSIS: ACUTE CONGESTIVE HEART FAILURE, ANASARCA CARDIAC HISTORY: CATHERIZATION: YES SURGERY: NO PROSTHETIC VALVE: NO PACEMAKER: NO MEASUREMENTS (cm) DIASTOLIC (NORMALS) SYSTOLIC (NORMALS) IVSd 1.3 (0.6-1.2) LA Diam 4.2 (1.9-4.0) LVEF 77% LVIDd 5.7 (3.5-5.7) LVIDs 3.0. (2.0-3.5) %FS 46% LVPWd 1.4 (0.6-1.2) Ao Diam 3.0 (2.0-3.7) 2 DIMENSIONAL ASSESSMENT: RIGHT ATRIUM: NORMAL LEFT ATRIUM: DILATED RIGHT VENTRICLE: NORMAL LEFT VENTRICLE: LEFT VENTRICULAR HYPERTROPHY TRICUSPID VALVE: NORMAL MITRAL VALVE: NORMAL PULMONIC VALVE: NORMAL AORTIC VALVE: NORMAL PERICARDIAL EFFUSION: NONE AORTIC ROOT: NORMAL LEFT VENTRICULAR WALL MOTION: NORMAL EJECTION FRACTION DOPPLER/COLOR FLOW: MILD MITRAL AND TRICUSPID REGURGITATION COMMENTS: DIASTOLIC DYSFUNCTION. NORMAL EJECTION FRACTION. LEFT VENTRICULAR HYPERTROPHY. LEFT ATRIAL ENLARGEMENT. NO EFFUSION. TECHNOLOGIST: IAM ARMIJO/ JUAN ARCE
== END 2020-02-08 14:14 | disposition home or self-care (01) | DRG 292 ==
LOC: ER 08:50 → ERHOLD 12:25 → 2ND 13:32
PROVIDERS: ADMIT Family Medicine; ATTEND Family Medicine
PROC: 30233N1 Transfusion of Nonautologous Red Blood Cells into Peripheral Vein, Percutaneous Approach (ICD-10-PCS; principal; 2020-02-05)
DX: I11.0 Hypertensive heart disease with heart failure (principal); J44.1 Chronic obstructive pulmonary disease with (acute) exacerbation; D62 Acute posthemorrhagic anemia; I50.33 Acute on chronic diastolic (congestive) heart failure; I25.10 Atherosclerotic heart disease of native coronary artery without angina pectoris; E78.5 Hyperlipidemia, unspecified; G47.33 Obstructive sleep apnea (adult) (pediatric); I48.91 Unspecified atrial fibrillation; I25.2 Old myocardial infarction; M10.9 Gout, unspecified; E66.9 Obesity, unspecified; Z68.37 Body mass index [BMI] 37.0-37.9, adult; Z99.81 Dependence on supplemental oxygen; Z91.11 Patient's noncompliance with dietary regimen; Z91.14 Patient's other noncompliance with medication regimen; Z79.01 Long term (current) use of anticoagulants; Z79.82 Long term (current) use of aspirin; Z79.52 Long term (current) use of systemic steroids; Z79.899 Other long term (current) drug therapy; Z86.73 Personal history of transient ischemic attack (TIA), and cerebral infarction without residual deficits; Z87.891 Personal history of nicotine dependence; Z20.828 Contact with and (suspected) exposure to other viral communicable diseases
CPT/HCPCS: 36415; 36430; 71045; 80048; 80053; 80076; 82272; 82274; 82533; 82607; 82746; 82947; 83540; 83735; 83880; 84100; 84439; 84443; 84484; 85014; 85018; 85025; 85044; 85610; 85730; 86850; 86900; 86901; 93005; 93306; 94640; 94660; 94760; 96374; 97116; 97161; 99285; J1650; J1940; J2405; J2916; J2920; J3420; J7050; J7512; P9016; U0002

== ENCOUNTER 2020-04-18 08:24 | Inpatient (IN) | payer OTHER ==
[2020-04-18 09:52] LABS: Absolute Lymphocytes (CBC) 1.1 K/uL (0.7-4.9); Basophils % 0.7 % (0-1.3); Lymphocytes % 8.1 % (15.3-44.8); RBC Red Blood Cell Count 2.36 M/uL (4.33-5.43)
[2020-04-18 09:58] LABS: Protime INR 1.04
[2020-04-18 10:01] LABS: Hematocrit 19.1 % (39.6-49.0)
[2020-04-18 10:09] LABS: Magnesium 2.2 mg/dL (1.8-2.4); Potassium 4.2 mmol/L (3.5-5.1); Troponin (Emerg Dept Use Only) 0.08 ng/mL (0.0-0.045)
[2020-04-18 10:34] LABS: Anisocytosis 1+; Blood Morphology Comment NOTED (NOT SEEN); Platelet Estimate ADEQ; Polychromasia SLIGHT; White Blood Cell Scan OK (OK)
--- NOTE | 2020-04-18 10:36 | EDPHYS ---
Physician Documentation [facility]ly [facility] Name: Caesar Gagnon Age: 80 yrs Sex: Male : 1940 Arrival Date: 04/18/2020 Time: 08:40 Bed 8 Private MD: ED Physician Lonny Ruby HPI: 04/18 08:45 This 80 yrs old Male presents to ER via Unassigned with complaints of sob, rn weakness. 08:45 The patient has shortness of breath at rest, with light activity. Onset: The rn symptoms/episode began/occurred this morning. Duration: The symptoms are intermittent. The patient's shortness of breath is aggravated by exertion, light activity. Associated signs and symptoms: Pertinent negatives: chest pain, non-productive cough, productive cough, diaphoresis, fever, hemoptysis. Severity of symptoms: At their worst the symptoms were moderate in the emergency department the symptoms are unchanged. The patient has experienced similar episodes in the past. The patient has not recently seen a physician. Reports chronic anemia, had been doing ok, states last blood transfusion a year or so ago, got EGD 2 months ago, no blood in stool currently or hematemesis. Reports told bleeds slowly from stomach. Also reports lightheadedness when standing, EMS reports orthostatic hypotension, gave him some fluids prior to arrival. Denies infectious symptoms. No fever. . Historical: - Allergies: 09:15 No Known Drug Allergies; ph - Home Meds: 09:15 albuterol sulfate 2.5 mg /3 mL (0.083 %) Inhl nebu 3 mL 3 times per day [Active]; ph allopurinol 300 mg Oral tab 1 tab once daily [Active]; aspirin 81 mg Oral chew 1 tab once daily [Active]; atorvastatin 40 mg Oral tab 1 tab once daily [Active]; Daliresp 500 mcg Oral tab 1 tab once daily [Active]; famotidine 20 mg Oral tab 1 tab once daily [Active]; furosemide 20 mg oral tab [Active]; hydralazine 25 mg Oral tab 1 tab as needed [Active]; metoprolol tartrate 12.5 Oral tab 2 times per day [Active]; prednisone 10 mg Oral tab once daily [Active]; spironolactone 25 mg Oral tab 1 tab 2 times per day [Active]; Plavix 75 mg Oral tab 1 tab once daily [Active]; Nexium 20 mg Oral cpDR 1 cap once daily [Active]; Breo Ellipta 100-25 mcg/dose inhalation dsdv 1 puff once daily [Active]; Spiriva Respimat 1.25 mcg/actuation inhalation mist 2 puffs once daily [Active]; ferrous sulfate 325 mg (65 mg iron) Oral tab twice a day [Active]; - PMHx: 09:15 Atrial Fib; CHF; Hypertension; anemia; GI Bleed; ph - PSHx: 09:15 cardiac stents; ph - Immunization history:: Flu vaccine is not up to date. - Social history:: Smoking status: Patient denies any tobacco usage or history of. - Family history:: not pertinent. - Hospitalizations: : No recent hospitalization is reported. ROS: 08:45 Constitutional: Negative for fever, chills, and weight loss, Eyes: Negative for injury, rn pain, redness, and discharge, Neck: Negative for injury, pain, and swelling, Cardiovascular: Negative for chest pain, palpitations, and edema, Respiratory: Negative for cough, wheezing, and pleuritic chest pain, Abdomen/GI: Negative for abdominal pain, nausea, vomiting, diarrhea, and constipation, Back: Negative for injury and pain, MS/Extremity: Negative for injury and deformity, Skin: Negative for injury, rash, and discoloration, Neuro: Negative for headache, numbness, tingling, and seizure. Exam: 08:45 Constitutional: This is a well developed, well nourished patient who is awake, alert, rn + tachypnea Head/Face: Normocephalic, atraumatic. Eyes: pale conjunctivae Cardiovascular: Irregular rhythm, regular rate. No pulse deficits. Respiratory: + tachypnea with crackles Abdomen/GI: soft, non-tender Skin: Warm, dry MS/ Extremity: Pulses equal, no cyanosis. Mild edema bilateral lower ext Neuro: Awake and alert, GCS 15 09:53 ECG was reviewed by the Attending Physician. rn Vital Signs: 08:43 BP 112 / 83; Pulse 87; Resp 24; Temp 97.1; Pulse Ox 87% on R/A; Weight 76.66 kg; Height ph 6 ft. 2 in. (187.96 cm); 09:44 BP 131 / 62; Pulse 83; Resp 24; sv 11:50 BP 143 / 50; Pulse 87; Resp 26; Temp 97.0; Pulse Ox 97% on 4 lpm NC; ph 08:43 Body Mass Index 21.70 (76.66 kg, 187.96 cm) ph MDM: 08:40 Patient medically screened. rn 10:34 Differential diagnosis: Anemia CHF exacerbation, Myocardial Infarction Pneumothorax rn pulmonary edema. Data reviewed: vital signs, nurses notes, lab test result(s), EKG, radiologic studies, plain films, and as a result, I will admit patient. Counseling: I had a detailed discussion with the patient and/or guardian regarding: the historical points, exam findings, and any diagnostic results supporting the discharge/admit diagnosis, lab results, radiology results, the need for further work-up and treatment in the hospital. Response to treatment: the patient's symptoms have mildly improved after treatment, and as a result, I will admit patient. Admission orders: after a detailed discussion of the patient's condition and case, the admit orders are written by me. ED course: Will admit to Dr. Dennison for anemia requiring transfusion, along with CHF/COPD. . 12 08:44 Order name: Blood Culture Adult (2) rn 04/18 08:44 Order name: BMP; Complete Time: 10:13 rn 04/18 08:44 Order name: CBC with Diff rn 04/18 08:44 Order name: Magnesium; Complete Time: 10:13 rn 04/18 08:44 Order name: NT PRO-BNP; Complete Time: 10:13 rn 04/18 08:44 Order name: PT-INR; Complete Time: 10:04 rn 04/18 08:44 Order name: XRAY CXR (1 view); Complete Time: 11:36 rn 04/18 08:44 Order name: Ptt, Activated; Complete Time: 10:04 rn 04/18 08:44 Order name: Troponin (emerg Dept Use Only); Complete Time: 10:13 rn 04/18 08:44 Order name: Type And Screen rn 04/18 10:16 Order name: Bb Add On eb 04/18 10:34 Order name: CBC Smear Scan; Complete Time: 11:36 EDMS 04/18 08:44 Order name: EKG; Complete Time: 08:45 rn 04/18 08:44 Order name: Cardiac monitoring; Complete Time: 09:15 rn 04/18 08:44 Order name: EKG - Nurse/Tech; Complete Time: 09:15 rn 04/18 08:44 Order name: IV Saline Lock; Complete Time: 09:16 rn 04/18 08:44 Order name: Labs collected and sent; Complete Time: 10:27 rn 04/18 08:44 Order name: O2 Per Protocol; Complete Time: 09:16 rn 04/18 08:44 Order name: O2 Sat Monitoring; Complete Time: 09:16 rn EC:53 Rate is 77 beats/min. Rhythm is irregularly irregular. QRS [place] is Normal. NC interval rn is normal. QRS interval is normal. QT interval is normal. No Q waves. T waves are Normal. No ST changes noted. Clinical impression: Atrial Fibrillation. Interpreted by me. Reviewed by me. Administered Medications: 10:37 Drug: Lasix 40 mg Route: IVP; Site: right antecubital; ph 11:49 Follow up: Response: No adverse reaction ph 11:14 Drug: Xopenex 1.25 mg Route: Inhalation; ph 11:49 Follow up: Response: No adverse reaction ph Disposition: 04/18/20 10:35 Hospitalization ordered by José Luis Dennison for Inpatient Admission. Preliminary diagnosis are Anemia, unspecified, Unspecified combined systolic (congestive) and diastolic (congestive) heart failure, Orthostatic hypotension, Upper GI bleed. - Bed requested for Telemetry/MedSurg (Inpatient). - Status is Inpatient Admission. ph - Condition is Stable. - Problem is an ongoing problem. - Symptoms have improved. Signatures: Dispatcher [employer] EDMS Lonny Ruby MD MD rn Hall, Patricia, RN RN Andie Clark Corrections: (The following items were deleted from the chart) 09:54 08:45 Constitutional: This is a well developed, well nourished patient who is awake, rn alert, + tachypnea Head/Face: Normocephalic, atraumatic. Eyes: pale conjunctivae Cardiovascular: Regular rate and rhythm. No pulse deficits. Respiratory: + tachypnea with crackles Abdomen/GI: soft, non-tender Skin: Warm, dry MS/ Extremity: Pulses equal, no cyanosis. Mild edema bilateral lower ext Neuro: Awake and alert, GCS 15 rn 10:35 10:35 Hospitalization Ordered by José Luis Dennison MD for Inpatient Admission. Preliminary rn diagnosis is Anemia, unspecified; Unspecified combined systolic (congestive) and diastolic (congestive) heart failure; Orthostatic hypotension. Bed requested for Telemetry/MedSurg (Inpatient). Status is Inpatient Admission. Condition is Stable. Problem is an ongoing problem. Symptoms have improved. rn 10:54 10:35 04/18/2020 10:35 Hospitalization Ordered by José Luis Denniosn MD for Inpatient eb Admission. Preliminary diagnosis is Anemia, unspecified; Unspecified combined systolic (congestive) and diastolic (congestive) heart failure; Orthostatic hypotension; Upper GI bleed. Bed requested for Telemetry/MedSurg (Inpatient). Status is Inpatient Admission. Condition is Stable. Problem is an ongoing problem. Symptoms have improved. rn 11:56 10:54 04/18/2020 10:35 Hospitalization Ordered by José Luis Dennison MD for Inpatient ph Admission. Preliminary diagnosis is Anemia, unspecified; Unspecified combined systolic (congestive) and diastolic (congestive) heart failure; Orthostatic hypotension; Upper GI bleed. Bed requested for Telemetry/MedSurg (Inpatient). Status is Inpatient Admission. Condition is Stable. Problem is an ongoing problem. Symptoms have improved. eb
--- NOTE | 2020-04-18 10:36 | ER ---
Nurse's Notes Formerly [facility] Name: Caesar Gagnon Age: 80 yrs Sex: Male : 1940 Arrival Date: 04/18/2020 Time: 08:40 Bed 8 Private MD: Diagnosis: Anemia, unspecified;Unspecified combined systolic (congestive) and diastolic (congestive) heart failure;Orthostatic hypotension;Upper GI bleed Presentation: 04/18 08:43 Chief complaint: Patient states: Reports sudden onset of weakness and near syncope this ph morning, positive orthostatics, hx of anemia, states that "when he feels like this his blood counts are low", breath sounds coarse juana, denies cough or fever, when pt stood up Spo2 dropped to 91%, placed on NRB, also reports hx of AFib and CHF. Coronavirus screen: Client denies travel out of the [place] in the last 14 days. difficulty breathing, fatigue, shortness of breath. Ebola Screen: No symptoms or risks identified at this time. Initial Sepsis Screen: Does the patient meet any 2 criteria? RR > 20 per min. Does the patient have a suspected source of infection? No. Patient's initial sepsis screen is negative. Risk Assessment: Do you want to hurt yourself or someone else? Patient reports no desire to harm self or others. Onset of symptoms was April 18, 2020. 08:43 Method Of Arrival: EMS: [facility] 08:43 Acuity: CHRISTIANO 2 ph Historical: - Allergies: 09:15 No Known Drug Allergies; ph - Home Meds: 09:15 albuterol sulfate 2.5 mg /3 mL (0.083 %) Inhl nebu 3 mL 3 times per day [Active]; ph allopurinol 300 mg Oral tab 1 tab once daily [Active]; aspirin 81 mg Oral chew 1 tab once daily [Active]; atorvastatin 40 mg Oral tab 1 tab once daily [Active]; Daliresp 500 mcg Oral tab 1 tab once daily [Active]; famotidine 20 mg Oral tab 1 tab once daily [Active]; furosemide 20 mg oral tab [Active]; hydralazine 25 mg Oral tab 1 tab as needed [Active]; metoprolol tartrate 12.5 Oral tab 2 times per day [Active]; prednisone 10 mg Oral tab once daily [Active]; spironolactone 25 mg Oral tab 1 tab 2 times per day [Active]; Plavix 75 mg Oral tab 1 tab once daily [Active]; Nexium 20 mg Oral cpDR 1 cap once daily [Active]; Breo Ellipta 100-25 mcg/dose inhalation dsdv 1 puff once daily [Active]; Spiriva Respimat 1.25 mcg/actuation inhalation mist 2 puffs once daily [Active]; ferrous sulfate 325 mg (65 mg iron) Oral tab twice a day [Active]; - PMHx: 09:15 Atrial Fib; CHF; Hypertension; anemia; GI Bleed; ph - PSHx: 09:15 cardiac stents; ph - Immunization history:: Flu vaccine is not up to date. - Social history:: Smoking status: Patient denies any tobacco usage or history of. - Family history:: not pertinent. - Hospitalizations: : No recent hospitalization is reported. Screenin:16 Abuse screen: Denies threats or abuse. Denies injuries from another. Nutritional ph screening: No deficits noted. Tuberculosis screening: No symptoms or risk factors identified. Fall Risk None identified. Assessment: 09:18 General: Appears in no apparent distress. uncomfortable, Behavior is calm, cooperative, ph appropriate for age, Denies fever. Pain: Denies pain. Neuro: Level of Consciousness is awake, alert, obeys commands, Oriented to person, place, time, situation. Cardiovascular: Capillary refill < 3 seconds in bilateral fingers Patient's skin is warm and dry. Edema is 2+ to left lower thigh, left knee, left midcalf, left ankle, right lower thigh, right knee, right midcalf and right ankle. Respiratory: Airway is patent Respiratory effort is labored, Respiratory pattern is tachypnea Breath sounds are coarse bilaterally. GI: Reports dark stools, hx of GI bleed Patient currently denies abdominal pain, constipation, diarrhea. GI: umbilical hernia. Derm: Skin is intact, Skin is pale, Skin temperature is cool. Musculoskeletal: Circulation, motion, and sensation intact. Range of motion: intact in all extremities. 10:30 Reassessment: Patient appears in no apparent distress at this time. Patient and/or ph family updated on plan of care and expected duration. Pain level reassessed. Patient is alert, oriented x 3, equal unlabored respirations, skin warm/dry/pink. 11:52 Reassessment: Patient appears in no apparent distress at this time. Patient and/or ph family updated on plan of care and expected duration. Pain level reassessed. Patient is alert, oriented x 3, equal unlabored respirations, skin warm/dry/pink. Vital Signs: 08:43 BP 112 / 83; Pulse 87; Resp 24; Temp 97.1; Pulse Ox 87% on R/A; Weight 76.66 kg; Height ph 6 ft. 2 in. (187.96 cm); 09:44 BP 131 / 62; Pulse 83; Resp 24; sv 11:50 BP 143 / 50; Pulse 87; Resp 26; Temp 97.0; Pulse Ox 97% on 4 lpm NC; ph 08:43 Body Mass Index 21.70 (76.66 kg, 187.96 cm) ph ED Course: 08:40 Patient arrived in ED. sv 08:40 Lonny Ruby MD is Attending Physician. rn 08:43 Nano Cabrera RN is Primary Nurse. ph 08:55 Triage completed. ph 08:55 Arm band placed on Patient placed in an exam room, on a stretcher, on oxygen, on ph cardiac cath tech, on pulse oximetry. 09:00 Maintain EMS IV. Dressing intact. Good blood return noted. Site clean \\T\\ dry. Gauge \\T\\ ph site: 18 RAC. 09:08 EKG done, by ED staff, reviewed by Lonny Ruby MD. dh3 09:17 Patient has correct armband on for positive identification. Placed in gown. Bed in low ph position. Call light in reach. data analytics chief scientist on. Pulse ox on. NIBP on. Door closed. Noise minimized. Warm blanket given. 09:45 XRAY CXR (1 view) In Process Unspecified. EDMS 10:34 José Luis Dennison MD is Hospitalizing Provider. rn 11:51 No provider procedures requiring assistance completed. Patient admitted, IV remains in ph place. Administered Medications: 10:37 Drug: Lasix 40 mg Route: IVP; Site: right antecubital; ph 11:49 Follow up: Response: No adverse reaction ph 11:14 Drug: Xopenex 1.25 mg Route: Inhalation; ph 11:49 Follow up: Response: No adverse reaction ph Outcome: 10:35 Decision to Hospitalize by Provider. rn 11:52 Admitted to Med/surg accompanied by tech, family with patient, via wheelchair, room ph 212, with oxygen. 11:52 Condition: stable 11:52 Instructed on the need for admit. 11:56 Patient left the ED. ph Signatures: Dispatcher [employer] Rin Stovall, Lonny Malcolm RN, MD MD rn Hall, Patricia, RN RN Clint, Annetta [facility]
[2020-04-18] MEDS ORDERED: FUROSEMIDE 40 MG/4 ML VIAL ONE (10:43)
[2020-04-18] MEDS ORDERED: LEVALBUTEROL 1.25 MG/3 ML NEB ONE (11:17)
--- NOTE | 2020-04-18 11:30 | RAD REPORT ---
EXAM DESCRIPTION: RAD - Chest Single View - 04/18/2020 9:44 am CLINICAL HISTORY: DYSPNEA Chest pain. COMPARISON: Chest Single View dated 02/04/2020; Chest Single View dated 12/16/2019; Chest Single View d ated 04/10/2019; Chest Single View dated 04/08/2019 FINDINGS: Portable technique limits examination quality. Patient rotation also mildly limits the catalina dy. The lungs are grossly clear. The heart is moderately enlarged. No displaced fractures.
[2020-04-18] MEDS ORDERED: FUROSEMIDE 20 MG/ 2ML VIAL IV ONE (12:12)
[2020-04-18] MEDS ORDERED: ONDANSETRON 4 MG/2 ML VIAL IV PRN (12:12)
[2020-04-18] MEDS ORDERED: NA CHLORIDE 0.9% 250 ML IV SCH (12:12)
[2020-04-18 13:02] VITALS: BMI 33.2
[2020-04-18] MEDS: ALBUTEROL 2.5 MG/3 ML NEB SOL NEB SCH ×2 (13:30→20:15)
[2020-04-18] MEDS ORDERED: ZOLPIDEM TARTRATE 10 MG TABLET PO PRN (14:06)
[2020-04-18] MEDS ORDERED: HYDRALAZINE HCL 25 MG TABLET PO SCH (15:00)
[2020-04-18] MEDS ORDERED: INFLUENZA VACCINE (for 3y+) 0.5 ML DOSE IMVAC ONE (15:00)
[2020-04-18] MEDS ORDERED: MORPHINE 2 MG/ML SYR IV PRN (16:51)
[2020-04-18] MEDS: FUROSEMIDE 40 MG/4 ML VIAL IV SCH (17:00)
[2020-04-18] MEDS: HYDROCODONE/APAP 5/325 MG TAB PO PRN ×2 (17:20→22:13)
[2020-04-18] MEDS: METOPROLOL XL 25 MG TAB PO SCH (21:08)
[2020-04-18] MEDS: SPIRONOLACTONE 25 MG TABLET PO SCH (21:09)
[2020-04-18] MEDS: lisinopriL 20 MG TAB PO SCH (21:10)
[2020-04-19] MEDS: ALBUTEROL 2.5 MG/3 ML NEB SOL NEB SCH ×4 (02:10→20:40)
[2020-04-19] MEDS: HYDROCODONE/APAP 5/325 MG TAB PO PRN ×3 (04:10→12:21)
[2020-04-19 04:26] LABS: Absolute Lymphocytes (CBC) 1.2 K/uL (0.7-4.9); Basophils % 0.5 % (0-1.3); Hematocrit 21.3 % (39.6-49.0); Lymphocytes % 7.2 % (15.3-44.8); MPV 7.1 fL (7.6-11.3); RBC Red Blood Cell Count 2.63 M/uL (4.33-5.43)
[2020-04-19 04:31] LABS: Potassium 3.7 mmol/L (3.5-5.1)
[2020-04-19] MEDS: lisinopriL 20 MG TAB PO SCH ×2 (08:15→21:10)
[2020-04-19] MEDS: METOPROLOL XL 25 MG TAB PO SCH ×2 (08:15→21:09)
[2020-04-19] MEDS: SPIRONOLACTONE 25 MG TABLET PO SCH ×2 (08:15→21:09)
[2020-04-19] MEDS: FUROSEMIDE 40 MG/4 ML VIAL IV SCH ×2 (08:17→16:28)
[2020-04-19] MEDS ORDERED: NA CHLORIDE 0.9% 250 ML ONE ×2 (11:05→14:47)
[2020-04-19] MEDS ORDERED: FUROSEMIDE 20 MG/ 2ML VIAL IV ONE (13:40)
[2020-04-19] MEDS ORDERED: FUROSEMIDE 40 MG/4 ML VIAL IV ONE (18:00)
[2020-04-19 19:33] LABS: Hematocrit 28.4 % (39.6-49.0)
--- NOTE | 2020-04-19 20:23 | CON ---
Date of Consultation: 04/19/2020 Reason For Consultation: Questionable heart failure. History Of Present Illness: A 80-year-old male who presented to the emergency room complaining of sh ortness of breath and generalized weakness. Apparently, he has been having also some bleeding episod es with some blood in his stool was last night. Denies having any chest pain. Has mild orthopnea. No nausea, vomiting, or diarrhea. No other complaints. Past Medical History: Congestive heart failure, atrial fibrillation, coronary artery disease status post PCI twice 10 years ago, CVA, and liver cirrhosis. Medications: Refer to reconciliation sheet for detailed list. Allergies: NO KNOWN DRUG ALLERGIES. Family History: No premature coronary artery disease or cancer. Social History: Does not smoke or drink. Does not use any drugs. Review of Systems: All systems reviewed and they were negative except for mentioned in the HPI. Physical Examination: Vital Signs: Temperature is 97.4, pulse 86, breathing 18, blood pressure is 101/51, saturating 97% r oom air. General: Pleasant elderly male, in no distress. Head and Neck: Pupils are equal, react to light. Intact eye movements. No JVD. No cervical lympha denopathy. Neck: Supple. Thyroid is not enlarged. Lungs: Decreased breathing sounds with faint crackles in the bases. No accessory muscle use or musc le retraction. Heart: Regular rate and rhythm. No extra sounds. Abdomen: Soft, nontender. Bowel sounds positive. No organomegaly. No masses or hernia. No rigidi ty or rebound. Extremities: No clubbing, cyanosis. Intact pulses. Skin: No rash. Neurologic: Alert, awake, oriented x3. No acute focal deficits associated. Investigations: Sodium 141, creatinine 1.23, BUN is 21. Hemoglobin was 5.8 on admission with a whit e blood count 14.7. Chest x-ray, enlarged heart. Assessment/plan: 1.Shortness of breath. This could be very well possible due to congestive heart failure. NT-proBNP is 1676 and troponin is 0.08. This could be high output as a failure. Recommend blood transfusion for hemoglobin to be above 8 and use Lasix 40 mg IV q.12 hours and obtain echocardiogram. 2.Elevated troponins could be due to demand ischemia. However, he is known to have coronary artery disease. Recommend to obtain a Lexiscan nuclear stress test to further evaluate. At this point, no coronary angiogram will be recommended due to active gastrointestinal bleed. 3.Severe anemia due to gastrointestinal blood loss, status post transfusion and workup for gastroint estinal bleed. Thank you for the consult. MECHELLE Voice ID: [id number] Report ID: [id number]
[2020-04-20] MEDS: ALBUTEROL 2.5 MG/3 ML NEB SOL NEB SCH ×4 (01:46→21:25)
[2020-04-20 05:34] LABS: Absolute Lymphocytes (CBC) 0.9 K/uL (0.7-4.9); Basophils % 0.4 % (0-1.3); Hematocrit 24.5 % (39.6-49.0); Lymphocytes % 5.6 % (15.3-44.8); MPV 7.2 fL (7.6-11.3); RBC Red Blood Cell Count 2.98 M/uL (4.33-5.43)
[2020-04-20 06:47] LABS: Anisocytosis 2+; Blood Morphology Comment NOTED (NOT SEEN); Platelet Estimate ADEQ; Polychromasia 1+; White Blood Cell Scan OK (OK)
[2020-04-20] MEDS: METOPROLOL XL 25 MG TAB PO SCH ×2 (08:32→21:00)
[2020-04-20] MEDS: lisinopriL 20 MG TAB PO SCH ×2 (08:33→21:00)
[2020-04-20] MEDS: SPIRONOLACTONE 25 MG TABLET PO SCH ×2 (08:33→21:00)
[2020-04-20 09:43] LABS: Protime INR 1.05
[2020-04-20] MEDS ORDERED: NA CHLORIDE 0.9% 250 ML ONE (09:59)
[2020-04-20] MEDS: FUROSEMIDE 40 MG/4 ML VIAL IV SCH ×2 (12:32→16:55)
--- NOTE | 2020-04-20 15:36 | RAD REPORT ---
EXAM DESCRIPTION: RAD - Abdomen 1 View (KUB) - 04/20/2020 3:05 pm CLINICAL HISTORY: GL bleed COMPARISON: Abdomen Pelvis W Contrast dated 04/02/2020 FINDINGS: Bowel gas pattern is non-specific. No obstruction, free air or pneumatosis. No suspicious calcifications. Advanced mid and lower lumbar degenerative change. SI joint degenerative changes minimal. Patient has severe left hip joint degenerative change with joint space narrowing, spurring and flattened contour to the superior left femoral head. IMPRESSION: No obstruction, free air or acute abdominal or pelvic finding. Advanced degenerative change in the lower lumbar spine and left hip joint.
[2020-04-20 17:04] LABS: Hematocrit 27.5 % (39.6-49.0)
[2020-04-20] MEDS: PANTOPRAZOLE 40MG TABLET PO SCH (19:24)
[2020-04-20] MEDS ORDERED: FUROSEMIDE 40 MG/4 ML VIAL IV ONE (20:00)
--- NOTE | 2020-04-20 20:36 | PN ---
Date of Progress Note: 04/20/2020 Mr. Gagnon was admitted with acute on chronic diastolic congestive heart failure, paroxysmal atrial f ibrillation, hypertension, severe anemia, GI bleed, has had a history of CAD, status post stents in t he past. The patient had a slightly elevated troponin and BNP, thought secondary to anemia. A stres s test was recommended by Dr. Marley, but will not be done until his anemia has improved. He is bein g seen by Gastroenterology as well as Hematology/Oncology. Overnight, he has diuresed fairly well. He has a -750 cc balance. His blood pressure was 113/50. He was in atrial fibrillation with occasio nal PVCs with a rate of 71. His respiratory rate was 24. He was afebrile. 98% on nasal cannula 3 L . Last hemoglobin was 7.6. Last creatinine was 1.62. His present regimen includes Lasix, inhalers, metoprolol, Protonix, spironolactone, and lisinopril. He is also on hydralazine p.r.n. His last ec hocardiogram in January showed diastolic dysfunction with normal ejection fraction and left ventric ular hypertrophy. The mainstay of therapy for that is salt restriction, Lasix, and beta blockade. L isinopril and spironolactone are on board, but they are mostly for hypertension that will not improve his diastolic dysfunction. I will continue his present regimen. He can go home whenever it is okay with his admitting physicians down the road in a day or 2. We will make arrangements for a stress t est as an outpatient after he goes home. MAVERICK/RIA Voice ID: [id number] Report ID: [id number]
[2020-04-20] MEDS ORDERED: NA CHLORIDE 0.9% 250 ML IV ONE (23:05)
[2020-04-20] MEDS: ACETAMINOPHEN 500 MG TAB PO PRN (23:14)
[2020-04-21] MEDS ORDERED: NA CHLORIDE 0.9% 250 ML IV ONE (00:33)
[2020-04-21] MEDS: ALBUTEROL 2.5 MG/3 ML NEB SOL NEB SCH ×2 (02:00→08:00)
[2020-04-21] MEDS: ACETAMINOPHEN 500 MG TAB PO PRN (03:24)
[2020-04-21] MEDS ORDERED: ACETAMINOPHEN 500 MG TAB ONE (03:38)
[2020-04-21] MEDS ORDERED: DOPAMINE/D5W 400 MG/250 ML BAG IV PRN (04:58)
[2020-04-21] MEDS ORDERED: DOPAMINE/D5W 400 MG/250 ML BAG IV ONE (05:27)
[2020-04-21 05:59] LABS: Potassium 4.6 mmol/L (3.5-5.1)
[2020-04-21 06:09] LABS: Absolute Lymphocytes (CBC) 0.7 K/uL (0.7-4.9); Basophils % 0.2 % (0-1.3); Hematocrit 27.4 % (39.6-49.0); Lymphocytes % 4.1 % (15.3-44.8); MPV 7.1 fL (7.6-11.3); RBC Red Blood Cell Count 3.26 M/uL (4.33-5.43)
[2020-04-21] MEDS: PANTOPRAZOLE 40MG TABLET PO SCH (07:30)
[2020-04-21] MEDS: FUROSEMIDE 20 MG/ 2ML VIAL IV ONE ×4 (07:38→11:58)
[2020-04-21] MEDS ORDERED: FUROSEMIDE 40 MG/4 ML VIAL ONE (07:55)
[2020-04-21] MEDS ORDERED: FUROSEMIDE 20 MG/ 2ML VIAL ONE ×2 (07:56→12:11)
[2020-04-21] MEDS: SPIRONOLACTONE 25 MG TABLET PO SCH (07:57)
[2020-04-21] MEDS: METOPROLOL XL 25 MG TAB PO SCH ×2 (07:58→21:00)
[2020-04-21] MEDS: lisinopriL 20 MG TAB PO SCH (07:58)
[2020-04-21] MEDS ORDERED: ALBUTEROL 2.5 MG/3 ML NEB SOL ONE (08:14)
[2020-04-21] MEDS: PANTOPRAZOLE INJ 80 MG in NA CHLORIDE 0.9% 250 ML IV SCH ×2 (08:21→18:33)
[2020-04-21] MEDS ORDERED: NOREPINEPHRINE 4 MG in D5W 250 ML IV PRN (08:32)
--- NOTE | 2020-04-21 08:37 | ECHO ---
HEIGHT: 6 ft 2 in WEIGHT: 258 lb 0 oz DATE OF STUDY: 04/21/[address]: José Luis Dennison MD 2-DIMENSIONAL: YES M.MODE: YES DOPPLER: YES COLOR FLOW: YES TDS: PORTABLE: DEFINITY: BUBBLE STUDY: DIAGNOSIS: SHORTNESS OF BREATH CARDIAC HISTORY: CATHERIZATION: SURGERY: PROSTHETIC VALVE: PACEMAKER: MEASUREMENTS (cm) DIASTOLIC (NORMALS) SYSTOLIC (NORMALS) IVSd (0.6-1.2) LA Diam (1.9-4.0) LVEF 64% LVIDd (3.5-5.7) LVIDs (2.0-3.5) %FS 35% LVPWd (0.6-1.2) Ao Diam (2.0-3.7) 2 DIMENSIONAL ASSESSMENT: RIGHT ATRIUM: LEFT ATRIUM: RIGHT VENTRICLE: LEFT VENTRICLE: TRICUSPID VALVE: MITRAL VALVE: PULMONIC VALVE: AORTIC VALVE: PERICARDIAL EFFUSION: AORTIC ROOT: LEFT VENTRICULAR WALL MOTION: NORMAL EJECTION FRACTION DOPPLER/COLOR FLOW: MILD TRICUSPID REGURGITATION. NORMAL RIGHT VENTRICULAR SYSTOLIC PRESSURE. COMMENTS: MILD TRICUSPID REGURGITATION. NORMAL RIGHT VENTRICULAR SYSTOLIC PRESSURE. NORMAL LEFT VENTRICULAR EJECTION FRACTION AND SIZE. TECHNICALLY DIFFICULT STUDY. DIASTOLIC DYSFUNCTION. LEFT ATRIAL ENLARGEMENT. TECHNOLOGIST: IAM ARMIJO
[2020-04-21] MEDS: FUROSEMIDE 40 MG/4 ML VIAL IV SCH (09:00)
--- NOTE | 2020-04-21 09:22 | PN ---
Date of Progress Note: 04/20/2020 Patient is still having problems maintaining his hemoglobin level and is being transfused for 5 units and is awaiting the 6th. His hemoglobin on one occasion reached 9, however, it had dropped back int o the 8 level. Discussion was held with Dr. Quiroz, who did a scope of couple weeks ago and this obi nues possibility of him having to be transferred to [place] for earlier esophagogastroduodenoscopy th an desired when it would be necessary. His output is low, but stable. He continues to get his Lasix after the blood transfusion. His blood pressure is low, therefore, his GIRISH inhibitors and Aldactone has been held. His chemistries have been stable. A culture notification turned out to be a contami nant, which was compatible with his clinical findings. The case was also discussed with Dr. Caruso, wh o felt that the treatment what we were doing was in accordance with the diagnosis and his white count she fell elevated in combination of his steroids, which has been held and the reactive bone marrow r eaction to the marked low hemoglobin. We will continue to hold the Eliquis and Plavix and aspirin an d steroids with the risks and rewards discussed with the patient and his family with regard to withho lding the medication. However, in this case, the bleeding takes precedence. Telemetry continued to show atrial fibrillation with controlled rate. Depending on the results in the morning, he may in fa ct require another interventional procedure. HR/MODL Voice ID: [id number] Report ID: [id number]
[2020-04-21 09:43] LABS: Hematocrit 31.1 % (39.6-49.0)
--- NOTE | 2020-04-21 10:54 | RAD REPORT ---
EXAM DESCRIPTION: RAD - Chest Single View - 04/21/2020 10:07 am CLINICAL HISTORY: r/o volume overload COMPARISON: Portable April 18, 2020 TECHNIQUE: AP portable chest image was obtained 04/21/2020 10:07 am . FINDINGS: Perihilar interstitial pattern has increased slightly on the left. No focal mass or consol idation. Patient has a right deviation of the heart as a baseline seen on prior imaging. This does li adalberto retrocardiac right lung base. Perihilar markings on the right also appeared increase from compari son. Trachea remains in the midline. Cardiac silhouette has not changed. No measurable pleural effusi on and no pneumothorax. No acute bony abnormality seen. No acute aortic findings suspected. IMPRESSION: Heart size is prominent but stable. Perihilar opacification has increased suspicious for very early or developing failure or volume overl oad.
[2020-04-21] MEDS ORDERED: LORazepam 2 MG/ML VIAL IV PRN (10:58)
[2020-04-21] MEDS ORDERED: NA CHLORIDE 0.9% 1,000 ML IV SCH (11:00)
[2020-04-21] MEDS ORDERED: DIAZEPAM 10 MG/2 ML INJ SYRINGE IV PRN (11:07)
[2020-04-21] MEDS ORDERED: NA CHLORIDE 0.9% 1,000 ML ONE (11:27)
[2020-04-21] MEDS ORDERED: DIAZEPAM 10 MG/2 ML INJ SYRINGE ONE ×2 (12:16→18:54)
[2020-04-21] MEDS ORDERED: Pharmacy Consult 1 EA XX PRN (12:41)
--- NOTE | 2020-04-21 12:45 | P.CNS ---
Date of Consult: 04/21/20 Reason for Consult: Respiratory distress hypotension Chief Complaint: Shortness of breath and anemia History of Present Illness: Patient is 72 years of age well known to me the triple medical problems including severe COPD chronic diastolic dysfunction coronary artery disease admitted with worsening shortness of breath as found to be severely anemic he has a history of anemia the current hospitalization for COPD in the past became hypotensive patient was transfused due to severe anemia with history of angina dysplasia no active bleed patient also has sleep apnea Allergies No Known Drug Allergies Allergy (Verified 11/24/15 11:48) Unknown morphine Adverse Reaction (Intermediate, Verified 04/18/20 17:30) See Com Home Medications: Atorvastatin Calcium [Lipitor] 40 mg PO BEDTIME 07/26/11 Furosemide [Lasix] 40 mg PO DAILY 07/26/11 Albuterol Sulfate [Albuterol Sulfate 0.083% Neb Soln] 2.5 mg IH Q6HP PRN #60 ml 07/26/14 Aspirin [Scooba Aspirin EC] 1 tab PO DAILY 11/06/16 Famotidine [Pepcid*] 1 tab PO DAILY 6PM 11/06/16 Allopurinol 300 mg PO DAILY 04/09/19 Fluticasone/Vilanterol [Breo Ellipta 200-25 Mcg INH] 1 puff IH DAILY 04/09/19 Hydralazine [Apresoline*] 1 tab PO PRN 12/16/19 Fluticasone/Umeclidin/Vilanter [Trelegy Ellipta 100-62.5-25] 1 puff PO DAILY 02/05/20 Metoprolol Succinate [Toprol Xl*] 12.5 mg PO BID 02/05/20 Clopidogrel Bisulfate [Plavix] 75 mg PO DAILY 30 Days #30 tablet 02/07/20 Spironolactone [Aldactone] 25 mg PO BID 30 Days #60 tab 02/07/20 predniSONE [Deltasone] 10 mg PO BID 30 Days #60 tab 02/07/20 Esomeprazole Magnesium [Nexium] 20 mg PO BID 04/18/20 Ferrous Sulfate [Feosol] 325 mg PO BID 04/18/20 Roflumilast [Daliresp] 500 mcg PO DAILY 04/18/20 - Past Medical/Surgical History Diabetic: No -: COPD -: HTN -: SLEEP APNEA -: AFIB -: CAD -: [place] -: CELLULITIS -: CVA -: CARTILIDGE REPAIR -: BOWEL SURGERY -: CARDIAC STENTS -: TONSILLECTOMY Psychosocial/ Personal History: Patient lives at home with his - Family History Father Notes: old age - Social History Smoking Status: Unknown if ever smoked Alcohol use: No CD- Drugs: No Caffeine use: Yes Place of Residence: Home Review of Systems General: Weakness Respiratory: Shortness of Breath Cardiovascular: Edema Physical Examination Temp Pulse Resp BP Pulse Ox 98.6 F 101 H 28 H 103/73 98 04/21/20 08:00 04/21/20 12:30 04/21/20 12:30 04/21/20 12:30 04/21/20 12:30 General: Alert, Moderate distress Respiratory: Crackles/rales, Expiratory wheezes Cardiovascular: Edema, Irregular heart rate/rhythm Gastrointestinal: Normal bowel sounds, Soft and benign - Problems (1) Hypotension Current Visit: Yes Status: Acute Plan: Patient is 80 years of age admitted there with hypotension severe anemia no evidence of active GI bleed he did have an endoscopy done by Dr. Quiroz 2 weeks ago currently hypotensive may be side effect of the Lasix in addition patient takes prednisone on a regular basis I have given him stress doses of Solu-Medrol continue with bronchodilators he has history of severe COPD resume his BiPAP chest x-rays clear may have some perihilar congestion continue with IV fluid boluses p.r.n. change to Levophed dopamine is causing AFib with hold diuretics an Sony inhibitors blood cultures most likely contaminant for coagulase negative Staph aureus put on to rule out sepsis he is high risk repeat blood culture empiric antibiotic patient has chronic renal failure patient is an IV Protonix Qualifiers: Hypotension type: unspecified hypotension type Qualified Code(s): I95.9 - Hypotension, unspecified
[2020-04-21] MEDS ORDERED: WATER FOR INJ,STERILE 10 ML IM PRN ×2 (12:50→22:44)
[2020-04-21] MEDS ORDERED: ZIPRASIDONE MESYLA 20 MG/VIAL IM PRN (12:50)
[2020-04-21] MEDS ORDERED: VANCOMYCIN 2 GM in NA CHLORIDE 0.9% 500 ML IVPB SCH (13:00)
[2020-04-21] MEDS ORDERED: CEFTRIAXONE/SWI 1gm 1 GM/10 ML SYR IV SCH (13:00)
[2020-04-21] MEDS ORDERED: WATER FOR INJ,STERILE 10 ML ONE ×2 (13:07→20:38)
[2020-04-21] MEDS ORDERED: ZIPRASIDONE MESYLA 20 MG/VIAL IM ONE ×3 (13:07→22:44)
[2020-04-21] MEDS ORDERED: CEFTRIAXONE/SWI 1gm 1 GM/10 ML SYR ONE (13:34)
[2020-04-21] MEDS: IPRATROPIUM BROM 0.5MG/2.5ML NEB SCH ×2 (14:15→21:10)
[2020-04-21] MEDS ORDERED: IPRATROPIUM BROM 0.5MG/2.5ML ONE ×2 (14:23→20:08)
[2020-04-21] MEDS: METHYLPREDNISOLONE 40 MG INJ IV SCH ×2 (14:56→21:45)
[2020-04-21 15:09] LABS: Hematocrit 29.2 % (39.6-49.0)
[2020-04-21] MEDS ORDERED: METHYLPREDNISOLONE 40 MG INJ ONE (15:09)
--- NOTE | 2020-04-21 19:46 | PN ---
Date of Progress Note: 04/21/2020 Subjective: The patient is now in the ICU. He had a run of ventricular tachycardia and became marke dly hypotensive last night. He was therefore transferred and placed on a dopamine drip which was lat er changed to Levophed drip with some stabilization of his blood pressure. Continued show atrial fib rillation with a stable rate and his hemoglobin has improved somewhat, and as of late this afternoon has not shown a drop, and attempted to transfer to could do an EGD; however, there are no beds available. We will continue to monitor in the ICU. The patient is somewhat more confused, seen also by Cardiology who agreed withholding the medications for his blood pressure with the exception of the low dose of beta-hang. I will still attempt to transfer him later today; if not successful , we will continue to monitor in the ICU, possibly be able to come off his trip. Seen by Pulmonology as well BiPAP; however, the patient did not tolerate this well. HR/MODL Voice ID: [id number] Report ID: [id number]
[2020-04-21] MEDS ORDERED: METHYLPREDNISOLONE 125 MG INJ ONE (21:49)
[2020-04-21 22:26] LABS: Hematocrit 28.9 % (39.6-49.0)
[2020-04-22] MEDS ORDERED: DIAZEPAM 10 MG/2 ML INJ SYRINGE IV SCH
[2020-04-22 02:02] VITALS: TEMP 99
[2020-04-22 02:03] VITALS: BP 129/70
[2020-04-22 02:31] VITALS: O2SAT 90
--- NOTE | 2020-04-25 13:02 | PN ---
Date of Progress Note: 04/21/2020 Mr. Gagnon has been admitted with acute on chronic diastolic congestive heart failure, paroxysmal atr ial fibrillation, GI bleed, anemia, and hypertension, coronary artery disease status post stent in e past. He became hypotensive, went to the ICU overnight. He has been on dopamine. His blood press ure when I last saw him was 120/72. He is fairly asymptomatic. GI consultation is pending. I agree with his present regimen. He should not be on any anticoagulants. CBC should be followed. I did d iscuss the case further with Dr. Dennison. There may be an issue of palpitation and there may be a pl an to transfer him to the hospital for further care and management. NB/MODL Voice ID: [id number] Report ID: [id number]
--- NOTE | 2020-08-02 14:55 | HP ---
Date of Admission: 04/18/2020 Hospital Course: The patient was admitted to the hospital on 04/18 following presentation of signifi cant COPD exacerbation, CHF with marked dyspnea, and marked anemia. He was seen by Cardiology, Dr. Ross arzate, who felt that the possibility of CHF, high output as well as failure, and his troponin was 0.0 8, BNP was 1676, and also agreed with the use of transfusion and Lasix. Held the metoprolol and coul d be due to demand ischemia. He was treated accordingly. He was also placed back on her usual medic ation, lisinopril, spironolactone, metoprolol, and Protonix, and actually showed some clinical progre ss. There was some question of the Eliquis, Plavix, aspirin, and steroids. This risk was discussed with the family and other specialists on the case, and the patient was decided to hold. Some questio n about the culture, however, this was a contaminant. Discussion of transfusion was made with his ga stroenterologist, Dr. Quiroz, who agreed to transfusions and possibly a recurrent EGD. He was seen by pulmonology as well. He then became dramatically worse as far as her symptoms are concerned, had a r un of ventricular tachycardia, became markedly hypotensive. He was therefore transferred to the ICU and placed on a dopamine drip, continued to show some atrial fib and his hemoglobin had improved some what. The possibility of requiring an EGD due to active bleeding was considered and there was no gas troenterologist available. Therefore, an attempt was made to transfer home to [place]. This was acc omplished and he was transferred in fair condition. His blood pressure is stabilized somewhat as wel l as his dopamine drip and his hemoglobin on her transfusion. Final Diagnoses: Acute on chronic congestive heart failure, paroxysmal atrial tachycardia, ventricul ar tachycardia, anemia secondary to gastrointestinal bleed, altered mental status, severe chronic obstructive pulmonary disease, acute exacerbation of chronic obstructive pulmonary disease. HR/MODL Voice ID: [id number]
--- NOTE | 2020-08-02 15:01 | HP ---
Date of Admission: 04/18/2020 Entrance Complaint: Shortness of breath, generalized weakness. History Of Present Illness: The patient has a long history of dyspnea secondary to severe COPD, CHF. He has been treated many times in the hospital for the same symptoms by Cardiology and Pulmonology and utilizes inhalation therapy and multiple breathing apparatus at home. However, he states that th is is more pronounced than usual. As above, he has a pulmonary status and cardiac status. The patie nt also had a history of anemia and he has required blood transfusions for this in the past, the last time approximately a year ago. He had a recent EGD, which was basically negative as far as bleeding is concerned and no definitive etiology for the anemia was ever determined. The patient also has a history of hypertension and cardiac stents. Family History: Noncontributory. Social History: No smoking as of late. Physical Examination: General: The patient is an elderly male, obviously dyspneic. VITAL SIGNS: Stable. Pulse ox 87% on room air. Head and Neck: Normocephalic. Pupils equal to light and accommodation. Fundi negative. Trachea midline. Thyroid not palpable. ENT negative. Chest: High-pitched rhonchi throughout. S light use of accessory muscles to breathe. Cardiovascular: PMI just outside midclavicular line. Heart sounds normal. Peripheral pulses are pre sent and equal bilaterally. Abdomen: No organomegaly. Bowel sounds present. Extremities: Slightl y dehydrated. Good tone and movement bilaterally. Reflexes physiologic. Rectal: Deferred. Impression: Acute exacerbation of chronic obstructive pulmonary disease, acute exacerbation of conge stive heart failure. Plan: The patient will be admitted, treated with diuretics, IVs as necessary, pulmonary requirements as necessary including use of the BiPAP. He will be seen by Cardiology and Pulmonology as necessary . Her blood count did reveal marked anemia and this too will be addressed in the form of transfusions a s in the past. HR/MODL Voice ID: [id number]
== END 2020-04-22 01:10 | disposition short-term general hospital (02) | DRG 377 ==
LOC: ER 08:24 → ERHOLD 10:39 → 2ND 11:22 → ERHOLD 04-21 02:00
PROVIDERS: ADMIT Family Medicine; ATTEND Family Medicine
PROC: 30233N1 Transfusion of Nonautologous Red Blood Cells into Peripheral Vein, Percutaneous Approach (ICD-10-PCS; principal; 2020-04-18)
DX: K92.2 Gastrointestinal hemorrhage, unspecified (principal); I50.33 Acute on chronic diastolic (congestive) heart failure; I47.2 Ventricular tachycardia; I11.0 Hypertensive heart disease with heart failure; D64.9 Anemia, unspecified; I48.0 Paroxysmal atrial fibrillation; J44.9 Chronic obstructive pulmonary disease, unspecified; I25.2 Old myocardial infarction; I25.10 Atherosclerotic heart disease of native coronary artery without angina pectoris; I95.2 Hypotension due to drugs; T50.1X5A Adverse effect of loop [high-ceiling] diuretics, initial encounter; Z79.82 Long term (current) use of aspirin; Z79.52 Long term (current) use of systemic steroids; Z79.02 Long term (current) use of antithrombotics/antiplatelets; Z79.899 Other long term (current) drug therapy; Z95.5 Presence of coronary angioplasty implant and graft; Z86.73 Personal history of transient ischemic attack (TIA), and cerebral infarction without residual deficits; Z88.5 Allergy status to narcotic agent; Z20.828 Contact with and (suspected) exposure to other viral communicable diseases
CPT/HCPCS: 36415; 36430; 71045; 74018; 80048; 82947; 83735; 83880; 84484; 85014; 85018; 85025; 85610; 85730; 86850; 86900; 86901; 87040; 87077; 87186; 87205; 93005; 93306; 94640; 94660; 96374; 99285; C9113; J0696; J1265; J1940; J2920; J2930; J3360; J3370; J3486; J7030; J7040; J7050; J7060; P9016; U0002